=== PATIENT | male | born 1975 | race Caucasian/White ===

== ENCOUNTER → 2018-01-29 09:27 | Outpatient (CLI) | payer OTHER, SELFPAY ==
--- NOTE | 2018-01-29 09:30 | NM_ITS ---
CLINICAL: 42-year-old male with reported history of dyspepsia and nausea. RADIONUCLIDE HEPATOBILIARY SCINTIGRAPHY COMPARISON: Abdominal ultrasound report 09/19/2017 FINDINGS: Following the intravenous administration of 5.5 mCi of 99m Tc Mebrofenin, hepatobiliary images reveal: 1. Relatively prompt and homogeneous radiopharmaceutical concentration is noted by a normal sized liver. No parenchymal defects are identified. 2. Gallbladder activity is identified at 15 minutes post radiopharmaceutical administration. 3. Small intestinal tract is observed at 10 minutes following tracer injection. 4. Washout of the radiopharmaceutical by the hepatic parenchyma appears qualitatively normal. 5. There is scintigraphic evidence of pre-CCK duodenal gastric reflux. Cholecystokinin (0.02 ug/kg) was administered intravenously over a 30-minute period. The post CCK gallbladder ejection fraction calculated at 20 minutes following Cholecystokinin administration was noted to be 4.0 % (normal greater than 35%). There is scintigraphic evidence of continued post CCK duodenal gastric reflux. NM/Hepatobilliary Img w/Pharm Int IMPRESSION: 1. ABNORMAL 99m Tc Mebrofenin hepatobiliary imaging examination with Cholecystokinin. A. A gallbladder ejection fraction calculated to be less than 35% following the administration of Cholecystokinin is consistent with the presence of functional hepatobiliary disease (gallbladder and/or sphincter of Oddi dyskinesia) and/or organic hepatobiliary disease (chronic acalculous cholecystitis and/or cystic duct syndrome) in patients with intermediate to high pretest likelihoods of hepatobiliary illness. (Michelle Ahumada et al, Journal of Nuclear Medicine 32:1695, 1990). B. There is scintigraphic evidence of pre-post CCK duodenal-gastric reflux as described above. (Tomasz et al, Nucl Med Sheila Sveta Press pg. 35, 1980). Electronically Signed: Joe Tao DO at 22:06 EDT Tel , Service support ,
== END ==
PROVIDERS: Family Provider Family Medicine; PCP Family Medicine; Visit Provider Family Medicine
DX: K21.9 Gastro-esophageal reflux disease without esophagitis (principal)
CPT/HCPCS: 78226; 78227; A9537; J2805

== ENCOUNTER 2018-02-12 10:53 | Day surgery (SDC) | payer OTHER, SELFPAY ==
[2018-02-12 11:08] VITALS: BP 149/92; PULSE 82; RESP 16; TEMP 36.6; O2SAT 98
--- NOTE | 2018-02-12 11:12 | NURSING ---
LIDOCAINE JELLY APPLIED TO L. NARE X2. AFTER SEVERAL MINUTES, MANOMETRY PROBE INSERTED IN L. NARE TO DESIRED LOCATION. PROBE THEN TAPED TO NOSE WITH BLUE TAPE. PT. THEN RECLINED TO <30 DEGREES. AFTER SEVERAL MINUTES, TEST PERFORMED.
--- NOTE | 2018-02-12 11:47 | NURSING ---
TEST COMPLETE. MANOMETRY PROBE REMOVED FROM NARE. PT. TOLERATED PROCEDURE WELL. HE DENIES PAIN OR OTHER C/O. PT. AMBULATED OUT TO WAITING ROOM WITH RN & ESCORT.
== END 2018-02-12 11:52 | disposition home or self-care (01) ==
PROVIDERS: Family Provider Family Medicine; PCP Family Medicine; Visit Provider Surgery
PROC: F00ZJWZ Instrumental Swallowing and Oral Function Assessment using Swallowing Equipment (ICD-10-PCS; CPT 43235; principal; 2018-02-12 10:55)
DX: Z13.810 Encounter for screening for upper gastrointestinal disorder (principal)
CPT/HCPCS: 91010

== ENCOUNTER 2018-02-19 05:44 | Day surgery (SDC) | payer OTHER, SELFPAY ==
[2018-02-19] VITALS (7 sets, daily range): BP systolic 99–150; BP diastolic 58–96; PULSE 65–81; RESP 16; TEMP 36.3–36.6; O2SAT 93–96
--- NOTE | 2018-02-19 | IMM_PTH ---
PATIENT: ABBEY RODRÍGUEZ LOC: EN U#:[id number] AGE/SX: 42/M ROOM: RE02/19/[address]: Dr. Elder Sim MD : 1975 BED: DIS: 02/19/2018 SPEC #: [id number] RECD: 02/20/18 14:00 STATUS: JOSE LUIS SUELLEN #: [id number] LILLIANA: 02/19/18 00:[address]: Elder Sim DEPT: IMMUNOHISTOCHEMISTRY RECD BY: Crissy Haney ENTERED: 02/20/18 14:01 SP TYPE: IMMUNO OTHR DR: Dr. Aleksandra De La Cruz MD Tissues: B - Stomach, NOS Procedures: H Pylori (initial) PHYSICIAN & INSTITUTION [place] [id number] SPECIMEN INFORMATION: Tissue Source: B ? Antral biopsy Clinical Info: GERD Specimen Number: [id number] CPT code: 94081 METHODOLOGY: Deparaffinized sections of prefer/formalin-fixed tissue or PAP/DQ stained slides are incubated with monoclonal/polyclonal antibodies/oligonucleotide probes. Localization is made via biotin free immunoperoxidase method. Appropriate controls are performed and reacted as expected. Results on target cell population are indicated in the following table: RESULTS: ANTIBODY / CLONE RESULT Block B H Pylori (polyclonal) negative These tests were developed and their performance characteristics determined by [facility]. They may not have been cleared or approved by the U.S. Food and Drug Administration. The FDA has determined that such clearance or approval is not necessary. INTERPRETATION: B. Antral biopsy: Negative for Helicobacter pylori organisms. SJ:randy 02/21/18
--- NOTE | 2018-02-19 | EGD_PTH ---
PATIENT: ABBEY RODRÍGUEZ LOC: EN U#:[id number] AGE/SX: 42/M ROOM: RE02/19/[address]: Dr. Elder Sim MD : 1975 BED: DIS: 02/19/2018 SPEC #: [id number] RECD: 02/19/18 10:48 STATUS: JOSE LUIS SUELLEN #: [id number] LILLIANA: 02/19/18 00:[address]: Elder Sim DEPT: SURGICAL PATHOLOGY RECD BY: Joycelyn Marti ENTERED: 02/19/18 11:25 SP TYPE: EGD BIOPSY OT DR: Dr. Aleksandra De La Cruz MD Tissues: A - Duodenum, NOS B - Gastric mucous membrane C - Gastric mucous membrane D - Esophageal mucous membrane E - Esophageal mucous membrane F - Esophageal mucous membrane Procedures: Surgery Specimen Level IV HEADER OPERATION: EGD PRE-OP DIAGNOSIS: GERD TISSUE SUBMITTED: A - Duodenal biopsy, B - Antral biopsy, C - Gastric polyp biopsy, body of stomach, D - Distal esophageal biopsy, E - Mid esophageal biopsy, F - Proximal esophageal biopsy MICROSCOPIC DIAGNOSIS A. Duodenal biopsy: Fragments of small intestinal mucosa, no pathologic diagnosis. B. Antral biopsy: Mild gastritis. C. Gastric polyp, biopsy: Consistent with fundic gland polyp. D. Distal esophageal biopsy: Fragments of squamous epithelium with minimal chronic inflammation. E. Mid esophageal biopsy: Fragments of squamous epithelium, no pathologic diagnosis. F. Proximal esophageal biopsy: Fragments of squamous epithelium, no pathologic diagnosis. SJ:randy 02/20/18 COMMENT B. The results of immunohistochemistry for Helicobacter pylori will be reported separately ([id number]). MICROSCOPIC DESCRIPTION Slides are reviewed. B. The specimen shows fragments of gastric mucosa with chronic inflammatory cell infiltrates in the lamina propria consisting of lymphocytes and plasma cells, consistent with mild chronic gastritis. GROSS DESCRIPTION A - Received in fixative is one container labeled with the patient's name and designated duodenal biopsy. The specimen consists of two irregular fragments of light ojeda soft tissue that in aggregate measure 0.5 x 0.3 x 0.1 cm. The specimen is totally submitted in one cassette. B - Received in fixative is one container labeled with the patient's name and designated antral biopsy. The specimen consists of one irregular fragment of light ojeda soft tissue that measures 0.3 x 0.3 x 0.1 cm. The specimen is totally submitted in one cassette. C - Received in fixative is one container labeled with the patient's name and designated gastric polyp biopsy. The specimen consists of one irregular fragment of light ojeda soft tissue that measures 0.6 x 0.2 x 0.1 cm. The specimen is totally submitted in one cassette. D - Received in fixative is one container labeled with the patient's name and designated distal esophageal biopsy. The specimen consists of two irregular fragments of light ojeda soft tissue that in aggregate measure 0.5 x 0.3 x 0.1 cm. The specimen is totally submitted in one cassette. E - Received in fixative is one container labeled with the patient's name and designated mid esophageal biopsy. The specimen consists of multiple irregular fragments of light ojeda soft tissue that in aggregate measure 1.5 x 0.2 x 0.1 cm. The specimen is totally submitted in one cassette. F - Received in fixative is one container labeled with the patient's name and designated proximal esophageal biopsy. The specimen consists of two irregular fragments of light ojeda soft tissue that in aggregate measure 0.6 x 0.3 x 0.1 cm. The specimen is totally submitted in one cassette. / RY:rg 02/19/18 TC:5 CPT: 37074 x6
--- NOTE | 2018-02-19 06:47 | PCM.OPRPT ---
Problem List (1) Esophageal dysmotility Status: Acute Report of Operation Date of Procedure: 02/19/18 Pre-Operative Diagnosis: Esophageal dysmotility Post-Operative Diagnosis: Normal mucosa of the esophagus. Small hiatal hernia. Mild antral gastritis. Polyp of the body of the stomach. Normal-appearing duodenum Surgery/Procedure Performed:: Esophagogastroduodenoscopy with biopsies Description of Surgical Findings:: Timeout and informed consent was obtained. 42-year-old gent was taken to the endoscopy suite. His oropharynx was anesthetized with Topex. He was placed in a left lateral decubitus position. Throughout the procedure 100 mg Demerol and 4 mg of Versed were given as intravenous sedation. Videogastroscope was inserted into the esophageal inlet. Proximal mid distal esophagus did not appear to be grossly remarkable. The EG junction was at 45 cm. A small hiatal hernia noted. No gross findings to suggest reflux. The scope was advanced into the stomach were very mild erythema of the antrum was noted. Scope was advanced through the pylorus. The first and second portion the duodenum were inspected. The ampulla was noted. There were no gross abnormalities. Duodenal biopsies obtained to the second portion. The scope was withdrawn no additional abnormalities noted. Antral biopsy was then obtained. The greater and lesser curvatures were inspected. There is a polyp in the mid body of the stomach this was also cold forcep biopsied as were the rest of the biopsies. The scope was retroflexed the EG junction and cardia inspected. The cardia was not remarkable. The small hiatal hernia noted. The scope was placed back in antegrade viewing position. Greater and lesser curvatures were carefully inspected without additional abnormality. Excess fluid and air was aspirated free. The scope was withdrawn to the distal esophagus. Distal mid and proximal esophageal cold forcep biopsies were obtained. Hemostasis was intact. The procedure was completed with the patient tolerating it well. Impression Grossly normal-appearing duodenum and esophagus. Mild antral gastritis with erythema. Small hiatal hernia. The patient has an abnormal manometry exam suggesting significantly abnormal esophageal motility. Biopsies are pending. Previous barium swallow had been unremarkable. He also has an abnormal hepatobiliary scan with an markedly low ejection fraction of 4% and CCK stimulated right upper quadrant pain and postprocedural diarrhea. Tertiary consultation for swallowing disorder has been made. The patient will consider surgical treatment of his gallbladder. Cc: Dr Aleksandra Jolliff Medications were given at 0633. The procedure was initiated at 0635. The procedure was completed at 0643. Elder Sim M.D., F.A.C.S.
== END 2018-02-19 07:30 | disposition home or self-care (01) ==
LOC: EN 05:45 → AC 05:46
PROVIDERS: Family Provider Family Medicine; PCP Family Medicine; Visit Provider Surgery
PROC: (CPT 43239; principal; 2018-02-19 06:25)
DX: K29.70 Gastritis, unspecified, without bleeding (principal); K31.7 Polyp of stomach and duodenum; K20.9 Esophagitis, unspecified; K44.9 Diaphragmatic hernia without obstruction or gangrene; K22.4 Dyskinesia of esophagus; K21.9 Gastro-esophageal reflux disease without esophagitis; K82.9 Disease of gallbladder, unspecified; Z87.19 Personal history of other diseases of the digestive system; Z79.899 Other long term (current) drug therapy
CPT/HCPCS: 43239; 88305; 88342; 99152; 99153; J7120

== ENCOUNTER 2018-03-21 11:49 | Day surgery (SDC) | payer OTHER, SELFPAY ==
--- NOTE | 2018-03-19 13:45 | EKG12_ITS ---
Test Reason : PRE-OP Blood Pressure : / mmHG Vent. Rate : 080 BPM Atrial Rate : 080 BPM P-R Int : 182 ms QRS Dur : 096 ms QT Int : 362 ms P-R-T Axes : 023 -09 041 degrees QTc Int : 417 ms Normal sinus rhythm Normal ECG Confirmed by ROSY LOWRY ([id number]), dictionary editor GAYATHRI MARINO ([id number]) on 04/01/2018 4:58:21 PM Referred By: Elder Sim Confirmed By:ROSY LOWRY
[2018-03-19 14:57] LABS: Hematocrit 46.8 % (40-54); Hemoglobin 16.4 g/dl (13.0-16.5); Platelet Count 199 K/mm3 (150-450); RBC Distribution Width CV 13.3 % (11.6-14.6); RBC Distribution Width SD 38.6 fl (35.1-43.9); Red Blood Count 5.85 M/mm3 (4.6-6.2); White Blood Count 5.8 K/mm3 (4.4-11.0)
[2018-03-19 15:00] LABS: Scan Indicated on CBC? Y/N NO
[2018-03-19 15:29] LABS: Anion Gap 6 (5-15); BUN 13 mg/dL (7-18); BUN/Creat Ratio 15.3 RATIO (10-20); Calcium,Total 8.9 mg/dL (8.5-10.1); Chloride 104 mmol/L (98-107); Creatinine, Serum 0.85 mg/dL (0.70-1.30); EST Glomerular Filtration Rate 105 mL/min (>60); Est Glom Filt Rate - Afr Amer 126 mL/min (>60); Glucose 106 mg/dL (74-106); Potassium 3.6 mmol/L (3.5-5.1); Sodium Level 140 mmol/L (136-145)
[2018-03-21] VITALS (7 sets, daily range): BP systolic 111–133; BP diastolic 55–89; PULSE 56–76; RESP 14–18; TEMP 36.6–36.9; O2SAT 95–100; BMI 34.8
--- NOTE | 2018-03-21 13:35 | RAD_ITS ---
STUDY: INTRAOPERATIVE CHOLANGIOGRAM. REASON FOR EXAM: Male, 43 years old. Laparoscopic cholecystectomy. FLUOROSCOPY TIME (if supplied): (15.1 seconds) minutes/seconds TECHNIQUE: An intraoperative cholangiogram was performed by the surgeon. Imaging was submitted. COMPARISON: None. FINDINGS: The common bile duct is not dilated. No intraluminal filling defect is seen. There is free flow of contrast into the duodenum. RAD/Cholangiogram/ O R,Initial IMPRESSION: Unremarkable intraoperative cholangiogram. Electronically Signed: Elder Price MD at 15:27 EDT Tel [phone], Service support ,
--- NOTE | 2018-03-21 13:35 | GALL_PTH ---
PATIENT: ABBEY RODRÍGUEZ [place] [facility] [place][id number] AGE/SX: 43/M ROOM: RE03/21/[address]: Dr. Elder Sim MD : 1975 BED: DIS: 03/21/2018 SPEC #: [id number] RECD: 03/21/18 16:17 STATUS: JOSE LUIS BLISSAlly #: [id number] LILLIANA: 03/21/18 13:[address]: Elder Sim DEPT: SURGICAL PATHOLOGY RECD BY: Joe Joshi ENTERED: 03/22/18 14:00 SP TYPE: HILARY ALFARO DR: Dr. Aleksandra De La Cruz MD Tissues: Gallbladder, NOS Procedures: Surgery Specimen Level III HEADER OPERATION: Laparoscopic cholecystectomy PRE-OP DIAGNOSIS: Gallbladder problem TISSUE SUBMITTED: Gallbladder MICROSCOPIC DIAGNOSIS Gallbladder, cholecystectomy: Mild chronic cholecystitis. AM:randy 03/30/18 MICROSCOPIC DESCRIPTION Slides are reviewed. GROSS DESCRIPTION Received is one container labeled with the patient's name and designated gallbladder. The specimen consists of a gallbladder measuring 6 x 3.5 x 2 cm. The external surface is smooth and glistening. Focally, it is granular, hemorrhagic and contains cautery artifact. The lumen of the gallbladder contains mucoid bile and no calculi. The mucosa is bile-stained and without any mass lesions. The gallbladder wall averages 0.2 cm in thickness and is free of mass lesions. Bridge Ironworker sections of the gallbladder and the cystic duct are submitted in one cassette. / AM:randy 03/22/18 TC:3 CPT: 48478
--- NOTE | 2018-03-21 13:57 | PCM.DC.GS ---
Discharge Diet: Light diet - advance as tolerated - if you have questions about your diet instructions, please talk to you doctor. Discharge Activity: May Not Drive - for 1 week or while taking narcotic pain medicine. May shower in (days): 1 Lifting Restrictions: 10 pounds Call your doctor if your incision/area has: Continuous Slow Oozing, Sudden Increased Bleeding, Increased Pain/ Swelling, Increased Redness, Foul Smelling Discharge Call your doctor if you observe: Fever of 101 or Higher Suture Line Care: Avoid Pulling/Pushing, Avoid Pinching/Bending Additional Dressing/Incision Instructions:: Change or remove dressing in 4 days. Leave steri-strips in place for 1 week. Allergies/Adverse Reactions: Allergies No Known Allergies Allergy (Verified 03/21/18 11:21) Medications to take at Discharge ciprofloxacin 250 mg tablet 250 mg PO BID 02/05/18 dexlansoprazole 60 mg capsule,biphase delayed release 60 mg PO QDAY 02/05/18 dutasteride 0.5 mg capsule 0.5 mg PO QDAY 02/05/18 Primary Care Physician: Aleksandra De La Cruz MD [Primary Care Provider] - Please Follow Up With: Elder Sim MD - [phone] When: Call to make an appointment to be seen in about 10 days.
[2018-03-21] MEDS: Cefazolin 2 GM in 0.9% Normal Saline 100 ML IV (14:00)
[2018-03-21] MEDS: Bupivacaine Mpf 0.5% 30 ML VIAL (15:00)
--- NOTE | 2018-03-21 15:04 | PCM.OPRPT ---
Problem List (1) Biliary dyskinesia Status: Acute Report of Operation Date of Procedure: 03/21/18 Pre-Operative Diagnosis: Biliary dyskinesia Post-Operative Diagnosis: Same Surgery/Procedure Performed:: Laparoscopic cholecystectomy with cholangiograms Description of Surgical Findings:: Timeout and informed consent was obtained. 43-year-old gent was taken out from placement table underwent general endotracheal intubation anesthesia. The abdomen was sterilely prepped and draped. Ancef 2 g are given intravenously preoperatively. 0.5% Marcaine was used as a local anesthetic. Throughout the procedure total 30 cc was used. Skin sites were pre-anesthetized. A vertical infraumbilical incision was created sharp dissection carried down through subcu tissue direct access was gained through the peritoneum under direct visitation a 12 mm trocar was inserted. The abdomen was insufflated with CO2 to pressure of 10 mm micro pressure. 10 mm laparoscope was inserted no evidence any trocar injuries under direct visualization 5 mm ports were placed in the epigastric mid abdomen right upper quadrant. The abdomen was rapidly superficially inspected no gross superficial abnormalities. The gallbladder was distracted with a few adhesions of omentum to the gallbladder but nothing acute. The infundibular the gallbladder was completely dissected free. The hepatocystic angle was nicely achieved. The cystic duct and cystic artery cleanly identified. The cystic artery was clipped proximally distally prior to transecting it. A Hem-o-lola clip was placed on the cystic duct incision in the cystic duct and through a 14-gauge Angiocath cholangiocatheter was inserted. Fluoroscopically controlled claims grams were obtained demonstrating normal ductal anatomy and free flow into the small bowel. The cholangiogram catheter was removed and 2 Hem-o-lola clips were placed on the cystic duct stump prior to transecting it. The gallbladder was dissected free from the liver bed using electrocautery. Complete hemostasis was intact. The gallbladder was placed in retrieval bag. The right upper quadrant was irrigated and aspirated free of excess fluid. The gallbladder was exited the umbilicus. The remaining trochars removed under visualization. The abdomen was allowed to deflate of the CO2. The fascia at the umbilicus was approximated with 2 [id number] sutures of 0 Vicryl. Skin edges proximate interrupted 4 Monocryl subdermal stitches. Steri-Strips and Telfa and OpSite dressings were applied. Sponge instrument and needle counts were reported to the surgeon for correct. Blood loss was minimal. Specimens gallbladder. Drains none. Blood loss minimal. Elder Sim M.D., F.A.C.S. Type of Anesthesia:: General Anesthesiologist: Juan David Carbajal
[2018-03-21] MEDS: Ketorolac 30 MG/ML Syringe IV (15:25)
[2018-03-21] MEDS: Acetaminophen 325 MG Tablet 650 MG PO (16:15)
== END 2018-03-21 17:50 | disposition home or self-care (01) ==
LOC: SDC 11:49 → AC 11:50
PROVIDERS: Family Provider Family Medicine; PCP Family Medicine; Visit Provider Surgery
PROC: (CPT 47610; principal; 2018-03-21 13:15)
DX: K82.8 Other specified diseases of gallbladder (principal); K21.9 Gastro-esophageal reflux disease without esophagitis; Z87.891 Personal history of nicotine dependence
CPT/HCPCS: 00790; 47563; 36415; 74300; 76000; 80048; 85027; 88304; 93005; J7120; J2405

== ENCOUNTER → 2018-06-27 10:51 | Outpatient (CLI) | payer OTHER, SELFPAY ==
[2018-06-27 12:13] LABS: PSA,Total - Annual Screen 0.28 ng/mL (0.00-4.00)
== END ==
PROVIDERS: Family Provider Family Medicine; PCP Family Medicine; Visit Provider Nurse Practitioner Adult Health
DX: Z12.5 Encounter for screening for malignant neoplasm of prostate (principal)
CPT/HCPCS: 36415; 84153; G0103

== ENCOUNTER → 2018-07-03 15:02 | Outpatient (CLI) | payer OTHER, SELFPAY ==
--- NOTE | 2018-07-03 15:05 | RAD_ITS ---
STUDY: X-RAY CHEST REASON FOR EXAM: Male, 43 years old. Left lower chest pain onset today. TECHNIQUE: PA and lateral chest COMPARISON: None. FINDINGS: The lungs are clear and expanded. Normal cardiomediastinal silhouette, jordin and pleural margins. No acute osseous or upper abdominal process. RAD/Chest PA and Lateral IMPRESSION: No acute cardiopulmonary process. Electronically Signed: Joe Rogers, at 16:35 EDT Tel , Service support ,
== END ==
PROVIDERS: Family Provider Family Medicine; PCP Family Medicine; Visit Provider Family Medicine
DX: R07.81 Pleurodynia (principal)
CPT/HCPCS: 71046

== ENCOUNTER → 2019-07-21 09:57 | Outpatient (CLI) | payer OTHER, SELFPAY ==
[2018-03-21 12:29] VITALS: BMI 34.8
[2019-07-21 11:33] LABS: PSA,Total - Annual Screen 0.15 ng/mL (0.00-4.00)
== END ==
PROVIDERS: Family Provider Family Medicine; PCP Family Medicine; Referring Provider Nurse Practitioner Adult Health; Visit Provider Nurse Practitioner Adult Health
DX: Z12.5 Encounter for screening for malignant neoplasm of prostate (principal)
CPT/HCPCS: 36415; 84153; G0103

== ENCOUNTER 2020-10-19 13:00 | Outpatient (RCR) | payer OTHER, SELFPAY ==
--- NOTE | 2020-09-22 13:30 | HP.PTEVAL_ITS ---
Patient's Visit Information ABBEY RODRÍGUEZ is a 45 year old M referred to Physical Therapy by Dr. Nathaniel Thompson DPM with a diagnosis of L achilles tendonosis, Haglunds deformity. Date of Evaluation: 09/20/20 Physical Therapist: Richard Barnes DPT - Visit Plan Frequency: 1-2x /Week Duration: 4-6 Weeks Plan: Start with DN, stretching of G/S complex and progression of eccentric strengthening. I would like to rduce symptoms to increase tolerance to running, then to increase his tensial strength fo his achilles to reduce pain during straining movements. - Subjective Pt. is here today for his initial evaluation with diagnosis of L achilles tendonosis with hagluns deformity. Pt. has been running for some time, started higher volume a few years ago when training for a 1/2 marathons and 5ks. Pt. had stopped some of his high volume running and cross training due to COVID, but is back to running higher volumes again. Pt. did have a surgical removal of a Hagluns deformity on his R heel a few years ago with good success. Pt. reports h e has been having symptoms for several months now. Pt. reports most of his pain is located near his Haglunds deformity and in at distal achilles tendon. Pt. is wearing a resting splint during the day as he sits at his desk for work. Pt. denies N/T. His pain is worse upon standing after prolonged sitting and in the AMs when he wakes up. Pt. is sometimes able to run and the pain reduces, but comes back when he is done. Pt. is hopeful to decrease his symptoms in order to keep running without limitations. - Pain L achilles tendon Pain Intensity (Out of 10): 3 Pain Intensity Range: 1, 6 - Objective POSTURE: Pt. high arches bilaterally, resulting with increased supinated positioning in stance with rocking into pronation during mid stance phase. PALPATION: Pt. has a marked Haglunds deformity with increased tenderness at this deformity and along achilles insertion. Pt. did not have much pain along medial or lateral plantar fascia this date. NEURO: normal throughout, normal DTR, normal sensation. ROM: Pt. has decent ROM of his L ankle, DF 13deg, PG 51deg, INV/EVR 20deg./ea. MMT: pt. has 5/5 strength throughout ankle, 4/5 foot intrinsics Pt. does have increased pain with eccentric heel raises, especially with Single leg on his Left. GAIT: Pt. has fairly normal gait pattern, but does have increased lateral heel strike with initial contact and incrased supinated postion during this phase. Pt. tends to have increased pronation during stance phase. STAIRS: early heel off with descending on LLE, rest of the movement is normal. - Goals Goal 1:: LTG: Pt. to be I with HEP. Goal Time Frame: 4-6 Weeks Goal 2:: STG: Pt. to walk without increase in symptoms. Goal Time Frame: 2-4 Weeks Goal 3:: LTG: Pt. to run upto 5 miles without increase in symptoms. Goal Time Frame: 4-6 Weeks Goal 4:: STG: Pt. to have no pain at rest. Goal Time Frame: 2-4 Weeks Goal 5:: LTG: Pt. to complete all work related activites without increase in symptoms. Goal Time Frame: 4-6 Weeks - Rehabilitation Potential Physical Therapy Diagnosis: Pt. has signs and symptoms consistent with with L achilles tendonosis with Haglunds deformity. Pt. presents with increased pain at his achilles insertion greatest with attempting to run and more physical activities after prolonged sitting. He would benefit from PT to work on increased stretching, eccentric strengthening and use of modalities including dry needling to reduce symptoms. Rehabilitation Potential: Good - Anticipated Interventions Patient/Client Instruction: Educate patient on: Condition, Plan of Care, Risk Factors, Benefits of Fitness Program For the Purpose of:: To facilitate caregiver knowledge, To improve self management, To prevent re-injury, To improve ability to perform tasks related to life management, To improve tolerance to ADL's Therapeutic Exercise to Include: Strength training, Power training, Balance training, Postural training, Flexibilty training, Gait and locomotor training, Passive ROM, Active ROM For the Purpose of:: To decrease pain, To decrease swelling/inflammation, To increase ROM, To improve nutrient delivery to tissue, To increase oxygenation perfusion, To improve muscle performance and motor function, To improve ability to perform ADL's, To improve health of tissue, To decrease soft tissue restriction, To increase flexibility/ROM Manual Therapy Techniques to Include: Mobilization, Passive ROM, Functional dry needling, Soft tissue mobilization For the Purpose of:: To decrease pain, To decrease swelling/inflammation Ultrasound (thermal/non thermal): Yes For the Purpose of:: To decrease pain, To decrease swelling/inflammation, To increase ROM, To improve nutrient delivery to tissue, To increase oxygenation perfusion Thank you for the opportunity to evaluate your patient. For Medicare and Medicare HMO plans, please review the plan of care and approve it. It will need to be FAXED BACK to us at [phone] for Medicare purposes. For Medicare only, by signing this I certify the plan of care. Please let me know if there are questions or concerns regarding this plan of care. Physician Signature: Date:
--- NOTE | 2020-10-19 15:33 | HP.PTDCSUM ---
It has been my pleasure to treat ABBEY RODRÍGUEZ referred by Dr. Nathaniel Thompson, LIAN, with the diagnosis of L achilles tendonosis, Haglunds deformity for a total of 5 visit(s). Discharge Date: 10/19/20 Please see the following information for a summary of their discharge status. Subjective: Pt. reports I feel like I have regressed a bit.' He reports having continued stiffness/pain in AMs with initial steps. this does improve with stretching and mobility. Pt. is having increased issues with running as well, where reports being discouraged. Pt. is having most of his pain at his lateral calcaneus, burning sensation when he is running. L achilles tendon Pain Intensity (Out of 10): 1 % Improvement: 15 Objective/Function: Pt. has good strength, except he does have increased pain with L single leg heel raises. Pain at lateral calcaneus. He still has increased arch height and has increased rearfoot varus positioning derrick incraesed stress to lateral aspect of his calcaneus. Pt. did have some relief initially, but has started to regress no that he is running again. Goal 1:: LTG: Pt. to be I with HEP. Goal Progress: Goal Met Goal 2:: STG: Pt. to walk without increase in symptoms. Goal Progress: Progressing Goal 3:: LTG: Pt. to run upto 5 miles without increase in symptoms. Goal Progress: Not Progressing Goal 4:: STG: Pt. to have no pain at rest. Goal Progress: Progressing Goal 5:: LTG: Pt. to complete all work related activites without increase in symptoms. Goal Progress: Not Progressing Plan: DC back to physician due to lack of progression of symptoms. Discharge Comments: Pt. was treated for his achilles tendonitis with MARTIN valencia US, stretching and eccentric strengthening. He reported increased symptoms with the few trials of DN therefor held. He was progressing with stretching and strengthening, but now that he is back to running, he is still noticing increased symptoms throughout running. He is to continue with stretching at home as this gives some releief as well as using his resting splints. He will follow up with physician to determine best course of action. If there are questions or concerns regarding this patient's physical therapy, please feel free to call me at [phone]. Thank you for the referral of this patient. Sincerely, Richard Barnes DPT
== END 2020-10-19 19:00 | disposition home or self-care (01) ==
LOC: PT 13:00
PROVIDERS: PCP Family Medicine; Referring Provider Podiatrist; Visit Provider Podiatrist
DX: M72.2 Plantar fascial fibromatosis (principal); M76.62 Achilles tendinitis, left leg
CPT/HCPCS: 97035; 97140; 97161; 97164

== ENCOUNTER → 2020-11-08 07:12 | Outpatient (CLI) | payer OTHER, SELFPAY ==
--- NOTE | 2020-11-08 07:29 | MRI_ITS ---
STUDY: MRI LEFT ANKLE WITHOUT CONTRAST REASON FOR EXAM: Male, 45 years old. left achilles tendinits, heel spur TECHNIQUE: Standardized fat and water weighted pulse sequences were obtained in all 3 orthogonal planes. COMPARISON: None. FINDINGS: Mild/moderate Achilles tendinosis with small Achilles enthesophyte. Plantar spur. Acute on chronic plantar fasciitis with calcaneal bone marrow edema. Normal muscles of the midfoot/hindfoot. Mild soft tissue swelling. Small tibiotalar/subtalar joint effusion. Normal posterior tibialis tendon. Normal flexor digitorum longus tendon. Normal flexor hallucis longus tendon. Mild peroneus longus tenosynovitis. Normal peroneus brevis tendon. Normal tibialis anterior tendon. Normal extensor hallucis longus tendon. Normal extensor digitorum longus tendons. Normal distal tibiofibular syndesmotic ligamentous complex. Normal lateral ligamentous complex. Normal subtalar ligaments and sinus tarsi. Normal deltoid ligamentous complexes. Normal plantar calcaneonavicular (spring) ligament. Normal Lisfranc ligament. Normal tibiotalar articulation. Normal talar dome. Mild posterior subtalar joint arthrosis. Normal talonavicular articulation. Normal calcaneocuboid articulation. Normal navicular-cuneiform articulations. MRI/Lower Ext Joint Only (Routine) IMPRESSION: Acute on chronic plantar fasciitis with plantar spur and calcaneal bone marrow edema Mild/moderate Achilles tendinosis with small enthesophyte Mild peroneus longus tenosynovitis Mild soft tissue swelling with small joint effusion Electronically Signed: Matt Hou DO at 9:20 EST Tel , Service support ,
== END ==
PROVIDERS: PCP Family Medicine; Referring Provider Podiatrist; Visit Provider Podiatrist
DX: M76.62 Achilles tendinitis, left leg (principal); M77.32 Calcaneal spur, left foot
CPT/HCPCS: 73721

== ENCOUNTER 2022-01-16 11:30 | Outpatient (CLI) | payer OTHER, SELFPAY | END 2022-01-16 23:59 | disposition home or self-care (01) | LOC: LAB 11:32 | PROVIDERS: PCP Family Medicine; Referring Provider Registered Nurse; Visit Provider Registered Nurse | DX: Z12.5 Encounter for screening for malignant neoplasm of prostate (principal) | CPT/HCPCS: 36415; 84153; G0103 ==

== ENCOUNTER → 2022-09-13 | Outpatient (CLI) | payer OTHER, SELFPAY ==
[2022-09-13 10:46] LABS: ALB/GLOB Ratio 1.3 RATIO (0.9-2.4); AST(SGOT) 27 U/L (15-37); Alanine Aminotransfer ALT/SGPT 49 U/L (16-61); Albumin, Serum 3.9 g/dL (3.2-5.0); Alkaline Phosphatase 74 U/L (45-117); Anion Gap 8 (5-15); BUN 14 mg/dL (7-18); BUN/Creat Ratio 17.3 RATIO (10-20); Calcium,Total 8.8 mg/dL (8.5-10.1); Chloride 106 mmol/L (98-107); Cholesterol 211 mg/dL (200); Creatinine, Serum 0.81 mg/dL (0.70-1.30); EST Glomerular Filtration Rate 108 mL/min (>60); Est Glom Filt Rate - Afr Amer 130 mL/min (>60); Glucose 104 mg/dL (74-106); High Density Lipoprotein 31 mg/dL; Potassium 3.8 mmol/L (3.5-5.1); Protein, Total 6.9 g/dL (6.4-8.2); Sodium Level 140 mmol/L (136-145); Triglycerides 238 mg/dL; Very Low Density Lipoprotein 48 mg/dL (5-40)
== END | disposition home or self-care (01) ==
LOC: MFPLAB 09:08
PROVIDERS: PCP Family Medicine; Visit Provider Nurse Practitioner Family
DX: E78.5 Hyperlipidemia, unspecified (principal); Z13.1 Encounter for screening for diabetes mellitus
CPT/HCPCS: 36415; 80053; 80061

== ENCOUNTER → 2023-01-18 | Outpatient (CLI) | payer OTHER, SELFPAY ==
[2023-01-18 11:15] LABS: PSA,Total - Annual Screen 0.19 ng/mL (0.00-4.00)
== END | disposition home or self-care (01) ==
LOC: LAB 09:54
PROVIDERS: PCP Family Medicine; Referring Provider Registered Nurse; Visit Provider Registered Nurse
DX: Z12.5 Encounter for screening for malignant neoplasm of prostate (principal)
CPT/HCPCS: 36415; 84153; G0103

== ENCOUNTER → 2023-07-25 | Outpatient (CLI) | payer OTHER, SELFPAY ==
--- NOTE | 2023-07-25 14:31 | NEURO ---
NCS and/or EMG Patient Report Ordering Doctor: Aleksandra De La Cruz DATE OF SERVICE: 07/25/23 Cayetano presents for electrodiagnostic testing of the left upper limb. He reports numbness and tingling in the left hand. Electrodiagnostic findings: Left median motor nerve demonstrates normal distal latency, amplitude and conduction velocity. Left ulnar motor response is within normal limits, including conduction across the elbow. Normal median and ulnar F-waves on the left side. There is a prolonged left median sensory latency at the wrist. Normal left median palmar response. Normal ulnar and radial sensory responses. Needle EMG testing was performed in the left upper limb. All muscles tested showed no evidence of denervation with normal motor unit action potentials. Electrodiagnostic impression: This is an abnormal study in the left upper limb. 1. Electrodiagnostic findings suggestive of left-sided median mononeuropathy. This is consistent with a mild left carpal tunnel syndrome. Multi Select Codes Neurology Neurology Interp Codes: 42130-16 Musc test done w/n test comp (interp) and 86968-08 Nrv cndj test 7-8 studies (interp)
== END | disposition home or self-care (01) ==
LOC: PSN 12:56
PROVIDERS: PCP Family Medicine; Referring Provider Family Medicine; Visit Provider Family Medicine
DX: G56.02 Carpal tunnel syndrome, left upper limb (principal)
CPT/HCPCS: 95886; 95910

== ENCOUNTER 2023-11-13 09:48 | Day surgery (SDC) | payer OTHER, SELFPAY ==
[2023-11-13] MEDS: Lactated Ringers 1,000 ML 15 ML IV (10:11)
[2023-11-13 10:15] VITALS: BP 152/96; PULSE 91; RESP 17; TEMP 36.4; O2SAT 98; BMI 39.1
--- NOTE | 2023-11-13 11:02 | HP.PCM_ITS ---
History and Physical [facility] [address] [place] [address] [address] [place] [address] OFFICE VISIT Date of Service: 08/13/23 MR#: [id number] Acct: [id number] Name: ABBEY RODRÍGUEZ Rep #: [id number] : 1975 Provider: Dr. Carmelo Garsia DO Age/Sex: 48/M Location: [facility] [place] Status: Signed Intake Vital Signs 08/13/2308:27 Height 5 ft 11 in Weight: 200 lb BMI 27.8 Intake Visit Reasons: LEFT HAND Chief Complaint: left hand Accompanied by: Self Is patient in pain?: No Allergies No Known Allergies Allergy (Verified 04/04/18 08:59) Medications ciprofloxacin HCl 250 mg tablet (Cipro) 250 mg PO BID 02/05/18 [History Confirmed 08/13/23] dexlansoprazole 60 mg capsule,biphase delayed release (Dexilant) 60 mg PO QDAY 02/05/18 [History Confirmed 08/13/23] dutasteride 0.5 mg capsule (Avodart) 0.5 mg PO QDAY 02/05/18 [History Confirmed 08/13/23] alfuzosin 10 mg tablet,extended release 24 hr (Uroxatral) 10 mg PO QDAY 04/04/18 [History Confirmed 08/13/23] celecoxib 100 mg capsule (Celebrex) 100 mg PO BID #60 caps 08/13/23 [Rx Confirmed 08/13/23] multivitamin 1 tab PO DAILY 08/13/23 [History Confirmed 08/13/23] PFSH Medical History (Updated 08/13/23 @ 09:[address] Carmelo Garsia DO) Abdominal pain Acid reflux Diarrhea Gallbladder problem Surgical History Hx of hernia repair S/P Achilles tendon repair S/P carpal tunnel release Family History Father Hypertension High cholesterol Cancer Skin cancerMother Cancer Skin cancer Social History Smoking Status: Former smoker second hand exposure: No alcohol intake: current alcohol intake frequency: holidays/special occasions only substance use type: does not use caffeine: No what type of physical activity do you participate in: walking frequency: 1-2 times per week seatbelt use: always HPI LEFT HAND Details: Parts of this documentation were recorded by a scribe, this documentation accurately reflects the service provided and the decisions made by me, Dr. Carmelo Garsia, DO 08/13/23 [id number]. ABBEY RODRÍGUEZ is a 48 year old M NEW patient here today for left hand numbness that he has had for a number of years but has became worse over the last 2 years. He states that he has numbness into all of his fingers and states that he occasionally has numbness that radiates to the elbow. He states that during the day when he is doing anything with his hands he has numbness of all the fingers and then at night he will have numbness from the elbow into the hand and all his fingers. He states that with driving and riding a bicycle he has worsening symptoms/numbness. He has tried night bracing for about 2 weeks which wasn't helpful. He did have a new EMG on 07/25/23 at [facility]. Denies any hx of trama to the left arm. Denies any hx of past surgery or injections of the left hand. He has occasionally tried Advil/Tylenol but not consistently. Denies any neck pain. Of note patient states he had the exact same symptoms in his right hand that were relieved with a carpal tunnel release. Ortho Exam General General: Yes no acute distress Neurologic: Yes alert and Yes oriented x3 Psychologic: Yes reasonable and appropriate Right Wrist/Hand Skin/Wound: No Swelling and No Ecchymosis Left Wrist/Hand Skin/Wound: No Swelling, No Ecchymosis, Yes nail intact and Yes capillary refill normal Left Wrist: Yes Durken's Test and Yes Phalen's; No Tinel's, No Thenar Atrophy and No Hypothenar Atrophy WRIST: phalens and durkens into ulnar 2 digits and some into the index and middle intact sensation to light touch. Head: Normocephalic Atraumatic Chest: symmetrical rise, non-labored breathing, no audible wheeze Abdomen: no guarding, non-rigid Supplemental Info 07/25/2023 EMG left upper extremity: Mild left carpal tunnel syndrome Coding Level of Care Code Off vis,new,level 3 Diagnoses Left carpal tunnel syndrome G56.02 Assessment and Plan Assessment and Plan (1) Left carpal tunnel syndrome: Status: Acute Medications: New celecoxib (Celebrex) 100 mg PO BID 60 caps 1RF Plan Patient educated that he does have mild left carpal tunnel syndrome. He doesn't have typical positive exam findings therefore it is hard to tell if he will get relief from a carpal tunnel release. Would recommend night bracing and NSAIDs for about 6 week or left carpal tunnel injection for diagnostic purposes. He states that the left hand feels exactly the same as the right hand prior to surgery. Alternatively he could have a left CTR. Reviewed the pre-operative plans with the patient. Risks and benefits of the procedure were fully explained, including but not limited to infection, neurovascular injury, continued pain, arthritis, stiffness, need for further surgery, re-injury, DVT, PE, general risks of anesthesia, and loss of limb or life. He would like to wait until the end of the year or beginning of next year to have left CTR. In the meantime he should continue with night bracing for 6 weeks and a prescription strength NSAID as he has chronic GERD. Will prescribe Celebrex for the patient. Provided patient with left wrist brace today. Follow up when wishes to proceed with surgery or sooner if pain, swelling, numbness or associated symptoms, or concerns develop. All questions answered. Patient in agreement of plan. 08/13/23 0931 <Electronically signed by Carmelo Garsia DO> Date Carmelo Garsia DO Cosigner Signature: Date (if applicable) CC: ~ I have examined the patient and the H&P has been reviewed. There are no clinical changes since date of exam.
[2023-11-13] MEDS: Lidocaine 1% /Epi 1:100 (20ml) 20 ML Vial (11:14)
[2023-11-13] MEDS: Cefazolin 2 GM in 0.9% Normal Saline (100mL Bag) 100 ML IV (11:14)
--- NOTE | 2023-11-13 11:42 | DCINST_ITS ---
Discharge Instructions Diet Discharge Diet: No restrictions Activity Additional Activity Instructions:: Ice and elevate operative extremity next 72 hours. Keep dressing on clean and dry for 48 hours then may remove and allow warm soapy water to rinse over incision but do not submerge until sutures are out. Then apply bandaid over incision and change daily. encourage finger range of motion. Not lift more than 1/2 pound. Minimize narcotic use only as needed and directed, may use OTC NSAID and Tylenol to supplement/substitute for pain control. Dressing / Incision Call your doctor if you observe: Shortness of breath and Chest pain Additional Dressing/Incision Instructions:: Ice and elevate operative extremity next 72 hours. Keep dressing on clean and dry for 48 hours then may remove and allow warm soapy water to rinse over incision but do not submerge until sutures are out. Then apply bandaid over incision and change daily. encourage finger range of motion. Not lift more than 1/2 pound. Minimize narcotic use only as needed and directed, may use OTC NSAID and Tylenol to supplement/substitute for pain control. Follow Up Care Please Follow Up With: Carmelo Garsia DO When: 2 weeks Test Results: Test results from this visit will be discussed in further detail at your follow- up appointment, if applicable. Discharge Plan Admission Primary Reason for Your Visit: Left carpal tunnel release Attending Provider: Carmelo Garsia Primary Care Provider: Aleksandra De La Cruz Discharge Orders/Prescriptions Prescriptions: New oxycodone 5 mg tablet 5 - 10 mg PO Q4H PRN (Reason: pain) 3 Days Qty: 12 0RF Continued ciprofloxacin HCl [Cipro] 250 mg tablet 250 mg PO BID dutasteride [Avodart] 0.5 mg capsule 0.5 mg PO QDAY alfuzosin [Uroxatral] 10 mg tablet extended release 24 hr 10 mg PO QDAY multivitamin Tablet 1 tab PO DAILY esomeprazole magnesium [Nexium] 40 mg capsule,delayed release(DR/EC) 40 mg PO BID amitriptyline 10 mg tablet 30 mg PO QHS Patient Comments: take 3 tablets by mouth at bedtime saw palmetto 450 mg capsule 450 mg PO DAILY Rx Instructions: give with food (meal/snack) Referrals / Follow Up: Aleksandra De La Cruz MD [Primary Care Provider] - Disposition Disposition (needs filled in before D/C Order can be placed): Home, Self Care
--- NOTE | 2023-11-13 11:42 | PCM.OP.BLANK ---
Operative Report Date of Procedure: 11/13/23 Preoperative diagnosis; left carpal tunnel syndrome Postoperative diagnosis; same Procedure: Left open carpal tunnel release Anesthesia: Local with MAC Tourniquet time; 12 minutes 250 mm Hg Complications: None Indication for procedure; This is a 48-year-old male with long-standing symptoms consistent with carpal tunnel syndrome the patient did have electrodiagnostic evidence of this and has failed conservative treatment. Risks benefits and alternatives were reviewed including risks of bleeding infection nerve artery tissue damage need for further surgery and continued pain and symptoms, hypersensitivity to scar and Pillar pain. Procedure; The patient was met in the preoperative holding area the operative extremity was identified by both patient and physician and was marked the patient was met by anesthesia and brought back to the operating room and transferred to the operating table in the supine position. Anesthesia was started. A well-padded tourniquet was placed on the operative upper extremity. The patient was prepped and draped in the usual sterile fashion. A timeout was called to ensure the proper patient procedure and extremity were being contemplated. 0.5 percent lidocaine with epinephrine was injected into the incisional area. An Esmarch was used to exsanguinate the extremity. The tourniquet was inflated to 250 mmHg. A midline incision was made with a 15 blade scalpel between the thenar and hypothenar eminence. This was carried down through the skin and subcutaneous tissue. Bibiana retractors were then used, a deep blade scalpel was used to make a deep incision in the palmar aponeurosis. The bibiana retractors were then placed deep to this and the transverse carpal ligament was identified a perforation was made with a scalpel and a Littler scissors were used to complete the release of the transverse carpal ligament distally under direct visualization with the tips facing ulnarly until the perivascular fat was reached. Then turning our attention proximally using a tension slide technique the proximal extent of the transverse carpal ligament was released . There was noted to be hypertrophy of the transverse carpal ligament. The wound was thoroughly irrigated and was closed with 4-0 nylon vertical mattress stitches. Dressing was applied in the form of xeroform 4 x 4, web roll and an kee wrap. Tourniquet was let down there is no intraoperative complications patient tolerated the procedure well and was transferred to the PACU. All counts were correct.
[2023-11-13 11:48] VITALS: BP 131/62; BP 152/96; PULSE 105; RESP 16; TEMP 36.2; O2SAT 92
[2023-11-13 11:50] VITALS: BP 121/74; BP 152/96; PULSE 108; RESP 16; O2SAT 92
[2023-11-13 11:55] VITALS: BP 129/80; BP 152/96; PULSE 103; RESP 16; O2SAT 93
[2023-11-13 12:02] VITALS: BP 128/80; BP 152/96; PULSE 94; RESP 16; TEMP 36.4; O2SAT 93
[2023-11-13 12:25] VITALS: BP 152/96
== END 2023-11-13 12:37 | disposition home or self-care (01) ==
LOC: SDC 09:49 → AC 09:50
PROVIDERS: PCP Family Medicine; Referring Provider Orthopaedic Surgery; Visit Provider Orthopaedic Surgery
PROC: (CPT 64721; principal; 2023-11-13 11:15)
DX: G56.02 Carpal tunnel syndrome, left upper limb (principal); K21.9 Gastro-esophageal reflux disease without esophagitis; Z87.891 Personal history of nicotine dependence; Z79.899 Other long term (current) drug therapy
CPT/HCPCS: 64721; 01810; J7120; J2405

== ENCOUNTER → 2024-05-06 | Outpatient (CLI) | payer OTHER, SELFPAY ==
[2024-05-06 13:27] LABS: PSA,Total - Annual Screen 0.18 ng/mL (0.00-4.00)
== END | disposition home or self-care (01) ==
LOC: LAB 11:14
PROVIDERS: PCP Family Medicine; Referring Provider Nurse Practitioner; Visit Provider Nurse Practitioner
DX: Z12.5 Encounter for screening for malignant neoplasm of prostate (principal)
CPT/HCPCS: 36415; 84153; G0103

== ENCOUNTER 2024-09-30 05:51 | Day surgery (SDC) | payer OTHER, SELFPAY ==
[2024-09-30] VITALS (7 sets, daily range): BP systolic 120–139; BP diastolic 85–96; PULSE 101–113; RESP 16–18; TEMP 36.9–37.4; O2SAT 95–99; BMI 38.1
--- NOTE | 2024-09-30 06:40 | PRE.ANES_ITS ---
ASA Classification* ASA Classification ASA Classification: 3 Assessment & Plan Anesthesia* Anesthesia Assessment Anesthesia Assessment: Discussed sedation and/or anesthesia options, risks, benefits, and alternatives with patient/parents/legal guardian/POA. Questions invited. The patient/parents/legal guardian/POA seems to understand and agrees to proceed with anesthesia plan. Reviewed the physical assessment, medical history, allergy history and patient home medications list prior to surgery/procedure/anesthetic and documented any changes. Performed airway and anesthesia risk assessments. Anesthesia Type Anesthesia Type: MAC Anesthesia Focused Assessment* Temperature: 98.9 F Pulse Rate: 113 Blood Pressure: 136/85 Respiratory Rate: 18 Pulse Ox: 99 Airway Assessment Mouth opens: >3 cm Mallampati Score: II Focused Labs Anesthesia Preop lab: CBC WBC 5.8 K/mm3 (4.4-11.0) 03/19/18 13:38 RBC 5.85 M/mm3 (4.6-6.2) 03/19/18 13:38 Hgb 16.4 g/dl (13.0-16.5) 03/19/18 13:38 Hct 46.8 % (40-54) 03/19/18 13:38 Plt Count 199 K/mm3 (150-450) 03/19/18 13:38 CHEMISTRY Potassium 3.8 mmol/L (3.5-5.1) 09/13/22 09:08 Sodium 140 mmol/L (136-145) 09/13/22 09:08 BUN 14 mg/dL (7-18) 09/13/22 09:08 Creatinine 0.81 mg/dL (0.70-1.30) 09/13/22 09:08 Glucose 104 mg/dL (74-106) 09/13/22 09:08 TSH 1.21 uIU/mL (0.358-3.74) 04/12/15 08:37 COAG Pre-Assessment Diagnosis/Proposed Procedure Planned Operative Procedure(s): CSCOPE OA Anesthesia History Anesthesia History - company manager: Anesthesia History - company manager Hx Hospitalization No 09/25/24 09:12 Any Problems With Anesthesia Yes: N&V/HAD SCOPE PATCH AND 09/25/24 09:12 WORKED WELL Cholinesterase deficiency No 09/25/24 09:12 You/Your Family Experience No 09/25/24 09:12 fever (hyperthermia) with Relationship Recent Exposure to Contagious No 09/30/24 06:13 Disease Does patient have nerve No 09/25/24 09:12 stimulator Patient instructed to have device shut off --Does patient have Pacemaker No 09/30/24 06:14 or ICD? When Was Last Pacemaker Check QUESTION #4 FULL TEXT: You/Your Family Experience fever (hyperthermia) with Anesthesia Last Oral Intake Last Oral intake: Last Oral Intake NPO since 03:30 09/30/24 06:14 Meds taken in AM with sips of Yes 09/30/24 06:14 water? Meds patient instructed to take am of surgery PONV PONV - company manager: PONV - company manager Female No 09/25/24 09:12 HX of Motion Sickness Yes 09/25/24 09:12 HX of N/V After Surgery Yes 09/25/24 09:12 Non-Smoker Yes 09/25/24 09:12 Duration of Surgery greater No 09/25/24 09:12 than 60 minutes Number of Risk Factors 3 09/25/24 09:12 PONV Score Moderate Risk 09/25/24 09:12 Height & Weight Height & Weight: Anesthesia: Height & Weight Height 5 ft 11 in 09/30/24 06:14 Weight: 124.103 kg 09/30/24 06:14 Body Mass Index (BMI) 38.1 09/30/24 06:14 Respiratory Assessment Respiratory Assessment - company manager: Respiratory Tract Infection Hx - company manager Hx Respiratory Tract Infection No 09/25/24 09:12 STOP Sleep Apnea STOP Sleep Apnea - company manager: STOP Sleep Apnea - company manager Hx Hypertension No 09/25/24 09:12 Hx Sleep Apnea No 09/25/24 09:12 CPAP BIPAP Do you snore loudly (louder No 09/25/24 09:12 than talking or can be heard Do you often feel tired/ No 09/25/24 09:12 fatigued/ sleepy during daytime? Has anyone observed you stop No 09/25/24 09:12 breathing during sleep? STOP Results Negative 09/25/24 09:12 QUESTION #5 FULL TEXT : Do you snore loudly (louder than talking or can be heard through closed doors)? 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 Specify any problems Hx of Preganancy in last 3 N/A 09/25/24 09:12 Months Nurse Filling Out Transfusion DSCHRIBER 09/25/24 09:12 & Questions: Date: 09/25/24 09/25/24 09:12 Time: 09:13 09/25/24 09:12 Patient unable to answer at this time (ie. confused, unrespo /Reproduction History /Reproductive History - company manager: /Reproductive Hx- company manager Hx Now No 09/25/24 09:12 Gestational Age (in weeks): EDC: Hx Hx Para Hx Section SAB No 09/25/24 09:12 [facility] Medical History Esophageal motility disorder Irritable bowel syndrome, unspecified Benign prostatic hyperplasia with incomplete bladder emptying Alcohol use Kidney stones Back pain Gastric reflux Former smoker Gallbladder problem Acid reflux Diarrhea Abdominal pain Home Medications ?Medication ?Instructions ?Recorded ?Last Taken ?Type alfuzosin 10 mg tablet,extended 10 mg PO QDAY 04/04/18 09/29/24 History release 24 hr (Uroxatral) multivitamin 1 tab PO DAILY 08/13/23 09/29/24 History amitriptyline 10 mg tablet 30 mg PO QHS 11/02/23 09/29/24 History esomeprazole magnesium 40 mg 40 mg PO BID 11/02/23 09/30/24 03:30 History capsule,delayed release (Nexium) saw palmetto 450 mg capsule 450 mg PO DAILY 11/02/23 09/29/24 History ciprofloxacin HCl 250 mg tablet 250 mg PO BID 08/13/24 09/29/24 History (Cipro) finasteride 5 mg tablet 5 mg PO QHS 08/13/24 09/29/24 History Allergy/AdvReac Type Severity Reaction Status Date / Time adhesive tape Allergy Severe Rash Verified 09/30/24 06:11 iodine Allergy Severe Rash Verified 09/30/24 06:11 povidone-iodine (From Allergy Severe Rash Verified 09/30/24 06:11 Betadine) Family History Father Hypertension High cholesterol Cancer Skin cancer Mother Cancer Skin cancer Surgical History History of carpal tunnel surgery of left wrist Hx of vasectomy History of esophagogastroduodenoscopy (EGD) History of laparoscopic cholecystectomy S/P carpal tunnel release S/P Achilles tendon repair Social History household members: spouse current occupational status: employed current occupation: [employer] Smoking Status: Former smoker second hand exposure: No alcohol intake: current alcohol intake frequency: holidays/special occasions only substance use type: does not use caffeine: No what type of physical activity do you participate in: walking frequency: 1-2 times per week seatbelt use: always Review of Systems (Anesthesia) ROS Narrative System reviewed and no additional complaints, except as documented.
--- NOTE | 2024-09-30 06:40 | PCM.HP.STD ---
HPI - General General Date of Admission: 09/30/24 Date of Service: 09/30/24 Chief Complaint: Screening colonoscopy HPI Narrative ABBEY RODRÍGUEZ, is a 49 M who presents today for screening colonoscopy. He has a past medical history of cholecystitis, gastroesophageal reflux disease. He only takes esomeprazole on a daily basis and some finasteride for BPH. He is in fairly good health. He has never had a colonoscopy in the past. [facility] Medical History (Updated 09/25/24 @ 09:17 by Farnaz Mason) Esophageal motility disorder Irritable bowel syndrome, unspecified Benign prostatic hyperplasia with incomplete bladder emptying Alcohol use Kidney stones Back pain Gastric reflux Former smoker Gallbladder problem Acid reflux Diarrhea Abdominal pain Home Medications ?Medication ?Instructions ?Recorded ?Last Taken ?Type alfuzosin 10 mg tablet,extended 10 mg PO QDAY 04/04/18 09/29/24 History release 24 hr (Uroxatral) multivitamin 1 tab PO DAILY 08/13/23 09/29/24 History amitriptyline 10 mg tablet 30 mg PO QHS 11/02/23 09/29/24 History esomeprazole magnesium 40 mg 40 mg PO BID 11/02/23 09/30/24 03:30 History capsule,delayed release (Nexium) saw palmetto 450 mg capsule 450 mg PO DAILY 11/02/23 09/29/24 History ciprofloxacin HCl 250 mg tablet 250 mg PO BID 08/13/24 09/29/24 History (Cipro) finasteride 5 mg tablet 5 mg PO QHS 08/13/24 09/29/24 History Allergy/AdvReac Type Severity Reaction Status Date / Time adhesive tape Allergy Severe Rash Verified 09/30/24 06:11 iodine Allergy Severe Rash Verified 09/30/24 06:11 povidone-iodine (From Allergy Severe Rash Verified 09/30/24 06:11 Betadine) Family History Father Hypertension High cholesterol Cancer Skin cancer Mother Cancer Skin cancer Surgical History (Updated 09/25/24 @ 09:17 by Farnaz Mason) History of carpal tunnel surgery of left wrist Hx of vasectomy History of esophagogastroduodenoscopy (EGD) History of laparoscopic cholecystectomy S/P carpal tunnel release S/P Achilles tendon repair Social History (Updated 08/13/24 @ 08:51 by Yanira Roche) household members: spouse current occupational status: employed current occupation: [employer] Smoking Status: Former smoker second hand exposure: No alcohol intake: current alcohol intake frequency: holidays/special occasions only substance use type: does not use caffeine: No what type of physical activity do you participate in: walking frequency: 1-2 times per week seatbelt use: always ROS Review of Systems ROS Unobtainable: other Constitutional Constitutional: Denies fatigue, fever(s), poor appetite, weight gain or weight loss ENT HEENT: Denies mouth lesions Cardiovascular Cardiovascular: Denies abdominal bloating, abdominal edema or abdominal pain Respiratory/Chest Respiratory/Chest: Denies change in mental status, change in phlegm color, chest congestion or chest tightness Gastrointestinal Gastrointestinal: Denies belching, bloating, change in bowel habits, change in stool character, chewing difficulty, coffee ground emesis, constipation, cramping, diarrhea, dyspepsia, dysphagia, early satiety, excessive flatus, fecal incontinence, heartburn, hematemesis, hematochezia, hemorrhoids, loose stools, melena, nausea, odynophagia, rectal bleeding, tenesmus, vomiting or weight changes Genitourinary Genitourinary: Denies abdominal discomfort, burning urination or itching Musculoskeletal Musculoskeletal: Reports as per HPI; Denies muscle weakness or myalgias Integumentary Integumentary: Denies jaundice Neurologic Neurologic: Denies lack of coordination or weakness Psychiatric Psychiatric: Denies confusion, depression, memory loss, mood swings, paranoia or suicidal ideation Endocrine Endocrinology: Denies systems reviewed and no addt'l complaints, except as documented Hematologic/Lymphatic Hematologic/Lymphatic: Denies anemia, easy bleeding, easy bruising or lymphadenopathy Allergic/Immunologic Allergic/Immunologic: Denies systems reviewed and no addt'l complaints, except as documented Vital Signs Vital Signs Vital Signs: 09/30/24 06:13 09/30/24 06:14 Temperature 98.9 F Temperature Source Temporal Pulse Rate 113 H Respiratory Rate 18 Respiratory Pattern Normal Blood Pressure 136/85 H Blood Pressure Mean 102 Blood Pressure Source Monitor Blood Pressure Position Semi-Fowlers Blood Pressure Location Left Arm Pulse Ox 99 Oxygen Delivery Method Room Air Weight Weight: 273 lb 9.6 oz Body Mass Index (BMI) 38.1 Physical Exam Const alert, oriented x3, no apparent distress, healthy appearing and well nourished General Appearance: cooperative, comfortable, well kempt and well developed Orientation / Consciousness: awake and oriented to person HEENT Head and Scalp: normocephalic and atraumatic Face and Sinus: normal facial exam Mouth: oral and palatal mucosa normal Eyes General Eye: normal appearance of both eyes Neck full ROM Lymph Lymphatic: no lymphadenopathy noted Chest inspection of chest normal Resp normal respiratory effort and no use of accessory muscles Cardio regular rate and regular rhythm GI normal to inspection, nondistended, normoactive bowel sounds, soft to palpation, non-tender, non-distended and no masses Auscultation: normoactive bowel sounds Palpation: soft Percussion: normal to percussion Rectal Exam: visual inspection normal and normal sphincter tone no CVA tenderness Back/Spine no CVA tenderness and normal ROM Extremity normal to inspection Peripheral Pulses: Yes pulses 2+ throughout Skin no rashes or lesions noted General Skin Exam: no breakdown, elasticity normal and turgor normal Neuro oriented x3 Motor Exam: strength 5/5 throughout Psych mental status grossly normal Appearance: grossly normal Attitude: calm Activity / Motor Behavior: appropriate eye contact Speech: normal speech Thought Process: normal thought process Thought Content: normal thought content Attention / Concentration: attention grossly intact Memory / Cognition: memory grossly intact Insight: insight good Judgement: judgement good Assessment & Plan Assessment/Plan (1) Encounter for screening for malignant neoplasm of colon: PLAN: He was explained alternatives including not withstanding bleeding, infection, sepsis, perforation, need for emergent surgery . He will have an ASA of 3.
--- NOTE | 2024-09-30 07:00 | COLBX_PTH ---
PATIENT: ABBEY RODRÍGUEZ LOC: EN U#:[id number] AGE/SX: 49/M ROOM: RE09/30/[address]: Dr. Andrew Brewer DO : 1975 BED: DIS: 09/30/2024 SPEC #: [id number] RECD: 09/30/24 11:14 STATUS: JOSE LUIS REAlly #: [id number] LILLIANA: 09/30/24 07:[address]: Andrew Brewer DEPT: SURGICAL PATHOLOGY RECD BY: Mary Urias ENTERED: 09/30/24 12:10 SP TYPE: COLON BX OT DR: Dr. Aleksandra De La Cruz MD Tissues: Transverse colon Procedures: Surgery Specimen Level IV HEADER OPERATION: Colonoscopy with biopsy PRE-OP DIAGNOSIS: Encounter for screening for malignant neoplasm of colon TISSUE SUBMITTED: Transverse polyp biopsy MICROSCOPIC DIAGNOSIS Transverse colon polyp, biopsy: Hyperplastic polyp. AM.mr 10/01/2024 MICROSCOPIC DESCRIPTION Slides are reviewed. GROSS DESCRIPTION Received in fixative is one container labeled with the patient's name and designated Transverse polyp biopsy. The specimen consists of one irregular fragment of light ojeda soft tissue that measures 0.5 x 0.5 x 0.1 cm. The specimen is totally submitted in one cassette. 09/30/2024 TC:5 CPT:03600
--- NOTE | 2024-09-30 07:47 | OP.COLON_ITS ---
Patient Name: Cayetano Rodríguez Procedure Date: 09/30/2024 7:14 AM Date of : 1975 Age: 49 Procedure: Colonoscopy Indications: Screening for colorectal malignant neoplasm Providers: Andrew Brewer DO Referring MD: Aleksandra De La Cruz Medicines: Monitored Anesthesia Care Patient Profile: This is a 49 year old male. Refer to note in patient chart for documentation of history and physical. Last Colonoscopy: none. The patient's first colonoscopy is today. Complications: No immediate complications. Procedure: Pre-Anesthesia Assessment: - Prior to the procedure, a History and Physical was performed, and patient medications and allergies were reviewed. The patient is competent. The risks and benefits of the procedure and the sedation options and risks were discussed with the patient. All questions were answered and informed consent was obtained. Patient identification and proposed procedure were verified by the physician in the pre-procedure area. Mental Status Examination: alert and oriented. Airway Examination: normal oropharyngeal airway and neck mobility. Respiratory Examination: clear to auscultation. CV Examination: normal. ASA Grade Assessment: II - A patient with mild systemic disease. After reviewing the risks and benefits, the patient was deemed in satisfactory condition to undergo the procedure. The anesthesia plan was to use monitored anesthesia care (MAC). Immediately prior to administration of medications, the patient was re-assessed for adequacy to receive sedatives. The heart rate, respiratory rate, oxygen saturations, blood pressure, adequacy of pulmonary ventilation, and response to care were monitored throughout the procedure. The physical status of the patient was re-assessed after the procedure. After I obtained informed consent, the scope was passed under direct vision. Throughout the procedure, the patient's blood pressure, pulse, and oxygen saturations were monitored continuously. The Colonoscope was introduced through the anus and advanced to the cecum, identified by appendiceal orifice and ileocecal valve. The colonoscopy was performed without difficulty. The patient tolerated the procedure well. The quality of the bowel preparation was adequate. The ileocecal valve, appendiceal orifice, and rectum were photographed. Scope In: 7:23:54 AM Scope Withdrawal Time 0 hours 11 minutes 12 seconds Scope Out: 7:40:32 AM Total Procedure Duration Time 0 hours 16 minutes 38 seconds Findings: The perianal and digital rectal examinations were normal. An 8 mm polyp was found in the transverse colon. The polyp was sessile. The polyp was removed with a jumbo cold forceps. Resection and retrieval were complete. Verification of patient identification for the specimen was done. Estimated blood loss was minimal. A few small-mouthed diverticula were found in the recto-sigmoid colon. The exam was otherwise without abnormality on direct and retroflexion views. Impression: - One 8 mm polyp in the transverse colon, removed with a jumbo cold forceps. Resected and retrieved. - Diverticulosis in the recto-sigmoid colon. - The examination was otherwise normal on direct and retroflexion views. Recommendation: - Discharge patient to home. - Resume previous diet. - Continue present medications. - Await pathology results. - Repeat colonoscopy in 5 years for surveillance. Procedure Code(s): --- Professional --- 71784, Colonoscopy, flexible; with biopsy, single or multiple CPT copyright 2021 [employer]. All rights reserved. The codes documented in this report are preliminary and upon head charrer review may be revised to meet current compliance requirements. Andrew Brewer DO 09/30/2024 7:46:18 AM This report has been signed electronically. Number of Addenda: 0 Note Initiated On: 09/30/2024 7:14 AM
--- NOTE | 2024-09-30 07:47 | OP.CCLET_ITS ---
09/30/2024 Aleksandra De La Cruz [address] [place] [address] Re : Colonoscopy procedure for Cayetano Rodríguez Dear Dr. De La Cruz This procedure was performed on Monday, September 30, 2024. My impressions and recommendations are as follows: Impressions : - One 8 mm polyp in the transverse colon, removed with a jumbo cold forceps. Resected and retrieved. - Diverticulosis in the recto-sigmoid colon. - The examination was otherwise normal on direct and retroflexion views. Recommendations : - Discharge patient to home. - Resume previous diet. - Continue present medications. - Await pathology results. - Repeat colonoscopy in 5 years for surveillance. My findings are described in the full procedure note, which is enclosed. If I can be of further assistance, please feel free to contact me at . Sincerely, Andrew Brewer, 09/30/2024 7:46:18 AM This report has been signed electronically.
--- NOTE | 2024-09-30 08:23 | PCM.POST.ANE ---
Anesthesia: Postop Eval I Current Vital Signs Temperature: 98.9 F Pulse Rate: 113 Blood Pressure: 136/85 Respiratory Rate: 16 Pulse Ox: 99 Assessment Airway patent: Yes Spontaneous unlabored respirations: Yes nausea: No Vomiting: No Anesthesia Complication: No Fluid Hydration Crystalloid volume administer (ml): 10 Total IV fluid infused: 10 Progress Note Anesthesia document: Postop Eval 1 completed: Yes
--- NOTE | 2024-09-30 08:24 | PCM.POSTANE2 ---
Anesthesia Postop Eval I Sum Postop Eval Completion status Anesthesia document: Postop Eval 1 completed: Yes Anesthesia Postop Eval I Summary Anesthesia Postop Eval I Summary: Anesthesia Postop Eval I: Assessment Summary Airway patent Yes 09/30/24 08:24 Spontaneous unlabored Yes 09/30/24 08:24 respirations Mental status nausea No 09/30/24 08:24 Vomiting No 09/30/24 08:24 Anesthesia Postop Eval I: Fluid Summary Crystalloid volume administer 10 09/30/24 08:24 (ml) Colloids volume administered ( ml) Blood Product volume administered (ml) Total IV fluid infused 10 09/30/24 08:24 Anesthesia Postop Eval I: Summary Notes Anesthesia Complication No 09/30/24 08:24 Anesthesia Complication Comment: Post-operative progress note Anesthesia: Postop Eval II Evaluation Mental status: Awake Pain Level: 0 nausea: No Vomiting: No
== END 2024-09-30 08:22 | disposition home or self-care (01) ==
LOC: EN 05:51 → AC 05:52
PROVIDERS: PCP Family Medicine; Referring Provider Family Medicine; Visit Provider Internal Medicine Gastroenterology
PROC: 0DJD8ZZ Inspection of Lower Intestinal Tract, Via Natural or Artificial Opening Endoscopic (ICD-10-PCS; CPT 45378; principal; 2024-09-30 06:55)
DX: Z12.11 Encounter for screening for malignant neoplasm of colon (principal); K21.9 Gastro-esophageal reflux disease without esophagitis; K57.30 Diverticulosis of large intestine without perforation or abscess without bleeding; K63.5 Polyp of colon; Z87.891 Personal history of nicotine dependence
CPT/HCPCS: 45380; 88305; A4216; J2405

== ENCOUNTER → 2025-09-04 | Outpatient (CLI) | payer OTHER, SELFPAY ==
--- OUTSIDE RECORDS SUMMARY | 2025-09-04 17:37 | XMS RPT_ITS | CCD ---
Author Organization [facility] Inform ion Partnership [facility] Care Team Providers Care News Copy Editor Name Role Phone Aleksandra De La Cruz Primary Care Provider ALEKSANDRA DE LA CRUZ Primary Care Unavailable KURT STARK Referring Unavailable FARIHA, ALEKSANDRA BARNES Primary Care Unavailable KURT STARK Attending Unavailable Carmelo Garsia Referring Unavailable Carmelo Garsia Attending Unavailable Carmelo Garsia Consulting Unavailable Corryiff, Aleksandra S Primary Care Unavailable Carmelo Garsia Referring Unavailable Carmelo Garsia Attending Unavailable Jolliff, Aleksandra S Primary Care Unavailable [place], Haley Referring Unavailable [place], Haley Attending Unavailable Jolliff, Aleksandra S Primary Care Unavailable FriendAndrew Attending Unavailable FriendAndrew Consulting Unavailable Jolliff, Aleksandra S Referring Unavailable Jolliff, Aleksandra S Primary Care Unavailable Friend, Andrew Attending Unavailable Jolliff, Aleksandra S Referring Unavailable Jolliff, Aleksandra S Primary Care Unavailable Jolliff, Aleksandra S Referring Unavailable Jolliff, Aleksandra S Primary Care Unavailable Carmelo Garsia Attending Unavailable Corryiff, Aleksandra S Referring Unavailable Jolliff, Aleksandra S Primary Care Unavailable Carmelo Garsia Attending Unavailable Yanira Roche Attending Unavailable Jolliff, Aleksandra S Primary Care Unavailable Allergies Allergy Classification Reported Allergen(s) Allergy Type Date of Onset Reaction(s) Facility (1 source) Adhesive Tape Drug allergy (disorder) 09-30-2024 [facility] (1 source) Iodine Drug Allergy 09-30-2024 [facility] (1 source) Povidone-Iodine Drug Allergy 09-30-2024 [facility] Medications Current Medications Medication Drug Class(es) Dates Sig (Normalized) Sig (Original) 24 hr alfuzosin hydrochloride 10 mg extended release oral tablet (8 sources) alpha-Adrenergic Vijay Start: 04-04-2018 take 1 tablet by mouth once daily, then take 1 tablet by mouth every twenty-four hours Alfuzosin (Uroxatral) 10 mg tablet extended release 24 hr Active 10 MG PO daily April 04, 2018 12:00am Comment on above: Take 10 mg by mouth once daily. sugar-free cholestyramine resin 4000 mg powder for oral suspension (8 sources) Bile Acid Sequestrant Start: 04-06-2018 take 1 dose by mouth twice daily Cholestyramine-Asp artame Active 4 GM PO TWICE A DAY April 06, 2018 12:00am administer w/meal; avoid other meds within 1hr before or 4-6hr after dose Comment on above: Take 4 g by mouth tw ice daily. ciprofloxacin 250 mg oral tablet (8 sources) Quinolone Antimicrobial Start: 02-05-2018 take 1 tablet by mouth twice daily Ciprofloxacin Hcl (Cipro) 250 mg tablet Active 250 MG PO TWICE A DAY February 05, 2018 12:00am take 1 tablet by mouth twice carlos ly ciprofloxacin HCl (CIPRO) 500 mg tablet Take 500 mg by mouth twice daily. 0 Active Comment on above: Take 500 mg by mouth twice daily. dexlansoprazole 60 mg delayed release oral capsule (3 sources) Proton Pump Inhibitor Start: take 1 capsule by mouth once daily Dexlansoprazole (Dexilant) 60 mg capsule,biphase delayed releas Active 60 MG PO daily February 05, 2018 12:00am dutasteride 0.5 mg oral capsule (11 sources) 5-alpha Reductase Inhibitor Start: 016 End: take 1 capsule by mouth once daily Dutasteride (Avodart) 0.5 mg capsule Active 0.5 MG PO daily February 05, 2018 12:00am Comment on above: Take 0.5 mg by mouth once daily. Magnesium Sulfate / potassium sulfate / sodium sulfate (1 source) Start: 023 End: 023 sodium sulfate-potassium sulfate-magnesium sulfate (SUPREP BOWEL PREP KIT) 17.5-3.13-1.6 gram oral liquid Indications: Colon cancer screening Take 1 Bottle by mouth as directed for 2 days. Refer to instructions given by your provider. 1 Kit 0 04/16/2023 04/18/2023 Active Comment on above: Take 1 Bottle by mauri as directed for 2 days. Refer to instructions given by your provider. Completed/Discontinued Medications Medication Drug Class(es) Dates Sig (Normalized) Sig (Original) amitriptyline hydrochloride 10 mg oral tablet (9 sources) Tricyclic Antidepressant Start: 04-16-2023 take 3 tablets by mouth once daily at bedtime amitriptyline (ELAVIL) 10 mg tablet Take 3 tablets by mouth daily at bedtime. 270 tablet 3 04/16/2023 Active Start: 04-17-2022 End: 02-11-2023 take 3 tablets by mouth once daily at bedtime amitriptyline (ELAVIL) 10 mg tablet Take 3 tablets by mouth daily at bedtime. 270 tablet 3 04/16/2023 Active Start: 12-20-2021 End: 04-15-2022 take 3 tablets by mouth once daily at bedtime amitriptyline (ELAVIL) 10 mg tablet Take 3 tablets by mouth daily at bedtime. 270 tablet 3 12/20/2021 04/15/2022 Discontinued Comment on above: Take 3 tablets by mo [facility] daily at bedtime. AVOCADO OIL, BULK, MISC (5 sources) AVOCADO OIL, BUL K, MISC 0.5 mg. 0 Active Comment on above: 0.5 mg. esomeprazole 40 mg delayed release oral capsule (12 sources) Proton Pump Inhibitor Start: take 1 capsule by mouth twice daily before breakfast esomeprazole (NEXIUM) 40 mg capsule Take 1 capsule by mouth twice daily before meals. Take 30 min before breakfast and dinner 180 capsule 3 04/16/2023 Active Start: 11-23-2022 End: 02-14-2023 take 1 capsule by mouth twice daily before breakfast esomeprazole (NEXIUM) 40 mg capsule Take 1 capsule by mouth twice daily before meals. Take 30 min before breakfast and dinner 180 capsule 3 04/16/2023 Active Start: 04-17-2022 take 1 capsule by mo [facility] twice daily before breakfast esomeprazole (NEXIUM) 40 mg capsule Take 1 capsule by mouth twice daily before meals. Take 30 min before breakfast and dinner 180 capsule 3 04/17/2022 Active Start: 12-20-2021 End: 04-15-2022 take 1 capsule by mouth twice daily before breakfast esomeprazole (NEXIUM) 40 mg capsule Take 1 capsule by mouth twice daily before meals. Take 30 min before breakfast and dinner 180 capsule 3 12/20/2021 04/15/2022 Discontinued Start: 07-21-2016 End: 02-05-2018 take 20 mg by mouth twice daily Esomeprazole Magnesium Discontinued 20 MG PO TWICE A DAY July 21, 2016 12:00am February 05, 2018 2:34pm Comment on above: Take 1 capsule by mo uth twice daily before meals. Take 30 min before breakfast and dinner take 1 capsule by mo uth twice a day 30 MINUTES BEFORE BREAKFAST AND DINNER Take 1 capsule by mo uth twice daily before meals. sulfamethoxazole 800 mg / trimethoprim 160 mg oral tablet (3 sources) Dihydrofolate Reductase Inhibitor Antibacterial, Sulfonamide Antimicrobial Start: 07-21-20 End: 02-06-20 18 take 1 tablet by mouth twice daily Sulfamethoxazole-Tr imethoprim Discontinued 1 TABLET PO TWICE A DAY July 21, 2016 12:00am February 05, 2018 2:34pm Problems Problem Classification Problem Date Documented Da te Episodic/Chronic Abdominal pain (3 sources) Abdominal pain; Translations: [Unspecified abdominal pain] 03-21-2018 Episodic Biliary tract disease (6 sources) Gallbladder problem; Translations: [Disease of gallbladder, unspecified] 03-21-2018 Episodic Esophageal disorders (6 sources) Esophageal dysmotility; Translations: [Dyskinesia of esophagus] 03-21-2018 Chronic Esophageal disorders (2 sources) Aperistalsis of esophagus; Translations: [Achalasia of cardia] Onset: 05-09-2023 Episodic Other gastrointestinal disorders (3 sources) Diarrhea; Translations: [Diarrhea, unspecified] 03-21-2018 Episodic Other gastrointestinal disorders (1 source) Esophageal dysphagia; Translations: [Other dysphagia] Episodic Other nervous system disorders (1 source) Carpal tunnel syndrome, left upper limb; Translations: [Carpal tunnel syndrome, left upper limb] Onset: 11-16-2023 Chronic Other screening for suspected conditions (not mental disorders or infectious disease) (4 sources) Patient encounter status; Translations: [Encounter for screening for malignant neoplasm of colon] Onset: 05-22-2024 Episodic Residual codes; unclassified (3 sources) History of hernia repair; Translations: [Other specified postprocedural states] 04-04-2018 Episodic Residual codes; unclassified (3 sources) History of orthopedic surgery; Translations: [Other specified postprocedural states] 03-21-2018 Episodic Results Test Name Value Interpretation Reference Range Facility Colonoscopy Reporton 024 Colonoscopy Report [facility] Medical Records Department [address] [place] [address] Colonoscopy Report MR#: [id number] Acct: [id number] Name: ABBEY JORDAN Rep #: [id number] : 1975 49 From: Andrew Brweer DO PCP: Dr. Aleksandra De La Cruz MD Status[place] Patient Name: Abbey Jordan Procedure Date: 09/30/2024 7:14 AM Date of : 1975 Age: 49 Procedure: Colonoscopy Indications: Screening for colorectal malignant neoplasm Providers: Andrew Brewer DO Referring MD: Aleksandra De La Cruz Medicines: Monitored Anesthesia Care Patient Profile: This is a 49 year old male. Refer to note in patient chart for documentation of history and physical. Last Colonoscopy: none. The patient's first colonoscopy is today. Complications: No immediate complications. Procedure: Pre-Anesthesia Assessment: - Prior to the procedure, a History and Physical was performed, and patient medications and allergies were reviewed. The patient is competent. The risks and benefits of the procedure and the sedation options and risks were discussed with the patient. All questions were answered and informed consent was obtained. Patient identification and proposed procedure were verified by the physician in the pre-procedure area. Mental Status Examination: alert and oriented. Airway Examination: normal oropharyngeal airway and neck mobility. Respiratory Examination: clear to auscultation. CV Examination: normal. ASA Grade Assessment: II - A patient with mild systemic disease. After reviewing the risks and benefits, the patient was deemed in satisfactory condition to undergo the procedure. The anesthesia plan was to use monitored anesthesia care (MAC). Immediately prior to administration of medications, the patient was re-assessed for adequacy to receive sedatives. The heart rate, respiratory rate, oxygen saturations, blood pressure, adequacy of pulmonary ventilation, and response to care were monitored throughout the procedure. The physical status of the patient was re-assessed after the procedure. After I obtained informed consent, the scope was passed under direct vision. Throughout the procedure, the patient's blood pressure, pulse, and oxygen saturations were monitored continuously. The Colonoscope was introduced through the anus and advanced to the cecum, identified by appendiceal orifice and ileocecal valve. The colonoscopy was performed without difficulty. The patient tolerated the procedure well. The quality of the bowel preparation was adequate. The ileocecal valve, appendiceal orifice, and rectum were photographed. Scope In: 7:23:54 AM Scope Withdrawal Time 0 hours 11 minutes 12 seconds Scope Out: 7:40:32 AM Total Procedure Duration Time 0 hours 16 minutes 38 seconds Findings: The perianal and digital rectal examinations were normal. An 8 mm polyp was found in the transverse colon. The polyp was sessile. The polyp was removed with a jumbo cold forceps. Resection and retrieval were complete. Verification of patient identification for the specimen was done. Estimated blood loss was minimal. A few small-mouthed diverticula were found in the recto-sigmoid colon. The exam was otherwise without abnormality on direct and retroflexion views. Impression: - One 8 mm polyp in the transverse colon, removed with a jumbo cold forceps. Resected and retrieved. - Diverticulosis in the recto-sigmoid colon. - The examination was otherwise normal on direct and retroflexion views. Recommendation: - Discharge patient to home. - Resume previous diet. - Continue present medications. - Await pathology results. - Repeat colonoscopy in 5 years for surveillance. Procedure Code(s): --- Professional --- 39543, Colonoscopy, flexible; with biopsy, single or multiple CPT copyright 2021 [employer]. All rights reserved. The codes documented in this report are preliminary and upon leaflet or newspaper deliverer review may be revised to meet current compliance requirements. Andrew Brewer DO 09/30/2024 7:46:18 AM This report has been signed electronically. Number of Addenda: 0 Note Initiated On: 09/30/2024 7:14 AM 09/30/24 0746 Date Andrew Brewer DO Cosigner Signature: Date (if indicated) CC: Dr. Aleksandra De La Cruz MD; Andrew Brewer, Date Dictated: 09/30/24713 Date Transcribed: Control Systems Eng: RF Signed [facility] MR/POSTOP.ANEon 09-30-2024 MR/POSTOP.ANE [facility] Medical Records Department [address] [place] [address] Anesthesia Postop Eval I 09/30/24822 MR#: [id number] Acct: [id number] Name: ABBEY JORDAN RA Rep #: [id number] : 1975 49 From: Lenny Suárez MD PCP: Dr. Alkesandra De La Cruz MD Status:[facility] Y Race: C Location: Anesthesia: Postop Eval I Current Vital Signs Temperature: 98.9 F Pulse Rate: 113 Blood Pressure: 136/85 Respiratory Rate: 16 Pulse Ox: 99 Assessment Airway patent: Yes Spontaneous unlabored respirations: Yes nausea: No Vomiting: No Anesthesia Complication: No Fluid Hydration Crystalloid volume administer (ml): 10 Total IV fluid infused: 10 Progress Note Anesthesia document: Postop Eval 1 completed: Yes 09/30/24823 Date Lenny Suárez MD Cosigner Signature: Date CC: Signed [facility] MR/[id number] 09-30-2024 MR/POSTOPAN2 [facility] Medical Records Department [address] [place] [address] Anesthesia Postop Eval II 09/30/24823 MR#: [id number] Acct: [id number] Name: ABBEY JORDAN Rep #: [id number] : 1975 49 From: Lenny Suárez MD PCP: Dr. Aleksandra De La Cruz MD Status:DEP SD Y Race: C Location: EN Anesthesia Postop Eval I Sum Postop Eval Completion status Anesthesia document: Postop Eval 1 completed: Yes Anesthesia Postop Eval I Summary Anesthesia Postop Eval I Summary: Anesthesia Postop Eval I: Assessment Summary Airway patent Yes 09/30/24 08:24 Spontaneous unlabored Yes 09/30/24 08:24 respirations Mental status nausea No 09/30/24 08:24 Vomiting No 09/30/24 08:24 Anesthesia Postop Eval I: Fluid Summary Crystalloid volume administer 10 09/30/24 08:24 (ml) Colloids volume administered ( ml) Blood Product volume administered (ml) Total IV fluid infused 10 09/30/24 08:24 Anesthesia Postop Eval I: Summary Notes Anesthesia Complication No 09/30/24 08:24 Anesthesia Complication Comment: Post-operative progress note Anesthesia: Postop Eval II Evaluation Mental status: Awake Pain Level: 0 nausea: No Vomiting: No 09/30/24823 Date Lenny Suárez MD Cosigner Signature: Date CC: Signed [facility] Surgery Specimen Level Shavonne 09-30-2024 Surgery Specimen Level IV -------- Patient Age/Sex Location Account Attending Physician -------- ABBEY JODRAN 49/M EN [id number] Andrew Brewer DO -------- Specimen: [id number] Received: 09/30/24 Status: [facility] Num: [id number] Spec Type: COLON BX Subm Dr: Andrew Brewer DO HEADER OPERATION: Colonoscopy with biopsy PRE-OP DIAGNOSIS: Encounter for screening for malignant neoplasm of colon TISSUE SUBMITTED: Transverse polyp biopsy -------- MICROSCOPIC DIAGNOSIS Transverse colon polyp, biopsy: Hyperplastic polyp. AM. 10/01/2024 MICROSCOPIC DESCRIPTION Slides are reviewed. GROSS DESCRIPTION Received in fixative is one container labeled with the patient's name and designated Transverse polyp biopsy. The specimen consists of one irregular fragment of light ojeda soft tissue that measures 0.5 x 0.5 x 0.1 cm. The specimen is totally submitted in one cassette. AM. 09/30/2024 TC:5 CPT:52403 -------- Patient Age/Sex Location Account Attending Physician -------- ABBEY JORDAN 49/M EN [id number] Andrew Brewer DO -------- Signed (signature on file) Dr. Amari Alexander DO 10/01/24 1257 -------- Normal [facility] Comment on above: Performed By: #### P UMANG #### [facility] [place], [place], [id number] PSA,Total - Annual Screenon 05-06-2024 PSA,TOT SCREEN 0.18 ng/mL Normal 0.00-4.00 [facility] Comment on above: Result Comment: This test was performed using the TPSA assay method for the Dimension chemistry system. Values obtained with different assay methods cannot be used interchangably. When changing PSA assays in the course of monitoring a patient, additional sequential testing should be carried out to confirm baseline values. Performed By: #### L [phone] #### [facility] [address] [place], [address] Orthopedic Visit Reporton Orthopedic Visit Report [facility] [address] [place] [address] [address] [place] [address] OFFICE VISIT Date of Service: 11/26/23 MR#: [id number] Acct: [id number] Name: ABBEY JORDAN Rep #: [id number] : 1975 Provider: Dr. Caremlo motta, DO Age/Sex: 48/M Location: [facility] Status: Signed Intake Vital Signs 08/13/23 08:27 11/13/23 10:15 11/19/23 12:41 Height 5 ft 11 in 5 ft 11 in 5 ft 11 in Intake Visit Reasons: left wrist Is patient in pain?: No Allergies adhesive tape Allergy (Severe, Verified 11/26/23 15:56) Rash iodine Allergy (Severe, Verified 11/26/23 15:56) Rash povidone-iodine [From Betadine] Allergy (Severe, Verified 11/26/23 15:56) Rash Medications dutasteride 0.5 mg capsule (Avodart) 0.5 mg PO QDAY 02/05/18 [History Confirmed 11/26/23] alfuzosin 10 mg tablet,extended release 24 hr (Uroxatral) 10 mg PO QDAY 04/04/18 [History Confirmed 11/26/23] multivitamin 1 tab PO DAILY 08/13/23 [History Confirmed 11/26/23] amitriptyline 10 mg tablet 30 mg PO QHS 11/02/23 [History Confirmed 11/26/23] esomeprazole magnesium 40 mg capsule,delayed release (Nexium) 40 mg PO BID 11/02/23 [History Confirmed 11/26/23] saw palmetto 450 mg capsule 450 mg PO DAILY 11/02/23 [History Confirmed 11/26/23] [facility] Medical History (Updated 11/19/23 @ 15:[address] Carmelo Garsia, ) Abdominal pain Acid reflux Alcohol use Back pain Diarrhea Former smoker Gallbladder problem Gastric reflux Kidney stones Surgical History (Updated 11/02/23 @ 08:25 by Verona Rivas) History of laparoscopic cholecystectomy S/P Achilles tendon repair S/P carpal tunnel release Family History Father Hypertension High cholesterol Cancer Skin cancer Mother Cancer Skin cancer Social History Smoking Status: Former smoker second hand exposure: No alcohol intake: current alcohol intake frequency: holidays/special occasions only substance use type: does not use caffeine: No what type of physical activity do you participate in: walking frequency: 1-2 times per week seatbelt use: always HPI left wrist Details: This documentation accurately reflects the service provided and the decisions made by me, Dr. Carmelo Garsia, 11/26/23 1548. Part of today???s visit was documented by Aleksandra Lowery ATC, acting as scribe. ABBEY JORDAN is a 48 year old M here today for S/P Left open carpal tunnel release dos 11/13/23. Patient states that he is having itchiness over his incision from healing. He denies any redness or drainage. Patient denies any numbness or tingling. Patient denies any pain medications. Patient notes that he had a rash from his elbow down due to the cleaning solution. Patient notes that he took a medrol dose florencio which has helped with his rash. Ortho Exam General General: Yes no acute distress Neurologic: Yes alert and Yes oriented x3 Psychologic: Yes reasonable and appropriate Left Wrist/Hand Skin/Wound: Yes healing, Yes suture/keren removed and Yes capillary refill normal WRIST: good wrist and finger range of motion sutures removed no sign of infection. rash is fading . Supplemental Info 11/13/2023: Left carpal tunnel release Dr. Garsia 07/25/2023 EMG left upper extremity: Mild left carpal tunnel syndrome Coding Level of Care Code Global Post Op Diagnoses Orthopedic aftercare Z47.89 Assessment and Plan Assessment and Plan (1) Orthopedic aftercare: Plan Patient should continue to work on wrist and finger range of motion. Patient has a lifting restriction of 5 pounds for the week and then may slowly progress his lifting within reason. He might continue to have soreness over the incision. He may massage the incision to help with desensatization. Follow up on an as needed basis or sooner if pain, swelling, numbness or associated symptoms, or concerns develop. All questions answered. Patient in agreement of plan. 11/26/23 1610 Date Carmelo Garsia DO Cosigner Signature: Date (if applicable) CC: [facility] Orthopedic Visit Reporton Orthopedic Visit Report [facility] [address] [place] [place] [address] OFFICE VISIT Date of Service: 11/19/23 MR#: [id number] Acct: [id number] Name: ABBEY JORDAN Rep #: [id number] : 1975 Provider: Dr. Carmelo motta DO Age/Sex: 48/M Location: [facility] Status: Signed Intake Vital Signs 11/13/23 10:15 11/19/23 12:41 Height 5 ft 11 in 5 ft 11 in Intake Visit Reasons: LEFT WRIST Chief Complaint: left hand Allergies adhesive tape Allergy (Severe, Verified 11/13/23 09:55) Rash iodine Allergy (Severe, Verified 11/13/23 09:55) Rash povidone-iodine [From Betadine] Allergy (Severe, Verified 11/13/23 09:55) Rash [facility] Medical History (Updated 11/19/23 @ 15:[address] Carmelo Garsia DO) Abdominal pain Acid reflux Alcohol use Back pain Diarrhea Former smoker Gallbladder problem Gastric reflux Kidney stones Surgical History (Updated 11/02/23 @ 08:25 by Verona Rivas) History of laparoscopic cholecystectomy S/P Achilles tendon repair S/P carpal tunnel release Family History Father Hypertension High cholesterol Cancer Skin cancer Mother Cancer Skin cancer Social History Smoking Status: Former smoker second hand exposure: No alcohol intake: current alcohol intake frequency: holidays/special occasions only substance use type: does not use caffeine: No what type of physical activity do you participate in: walking frequency: 1-2 times per week seatbelt use: always HPI LEFT WRIST Details: This documentation accurately reflects the service provided and the decisions made by me, Dr. Carmelo Garsia, DO 11/19/23 1457. Part of today???s visit was documented by Nette ALBRIGHT, acting as scribe. ABBEY JORDAN is a 48 year old M here today for his left wrist. DOS: 11/13/23 Left carpal tunnel release. He is here because he has a rash that started at his wrist and has moved up his arm almost to the shoulder. He has been taking 50mg of benadryl every 4 hours which he doesn't think is helping. He states that he has had 4 other surgeries and this same thing has happened. He states that his last surgery was a cholecystectomy and Dr. Sim gave him prednisone. He has also used hydrocortisone cream and ice. Ortho Exam General General: Yes no acute distress Neurologic: Yes alert and Yes oriented x3 Psychologic: Yes reasonable and appropriate Right Wrist/Hand Skin/Wound: No Swelling and No Ecchymosis Left Wrist/Hand Skin/Wound: No Swelling, No Ecchymosis and Yes capillary refill normal WRIST: Incision looks good no signs of infection has good full finger range of motion he has a erythematous raised petechial rash dorsum from wrist to just proximal of the elbow Supplemental Info 07/25/2023 EMG left upper extremity: Mild left carpal tunnel syndrome Coding Level of Care Code Global Post Op Diagnoses Rash at application site R21 Assessment and Plan Assessment and Plan (1) Rash at application site: Status: Acute Plan: Patient has developed an allergic reaction most likely from the prepping solution as he has had this in the past with other surgeries we have tried Benadryl which has not been successful as well as topical OTC and prescription strength steroid cream. At this point I will call him in a Askemrol Dosepak and see him back next week for suture removal Medications: New methylprednisolone (Medrol (Florencio)) take as directed 21 tabs 0RF 11/19/23 1541 Date Carmelo Garsia DO Cosigner Signature: Date (if applicable) CC: [facility] Discharge Instructionon 10-23 Discharge Instruction [facility] Medical Records Department [address] [place] [address] Instructions for Home/Discharge Instructions 11/13/23 1142 MR#: [id number] Acct: [id number] Name: ABBEY JORDAN Rep #: [id number] : 1975 48 From: Carmelo Garsia DO PCP: Dr. Aleksandra De La Cruz MD Status[place] [place] Instructions Diet Discharge Diet: No restrictions Activity Additional Activity Instructions:: Ice and elevate operative extremity next 72 hours. Keep dressing on clean and dry for 48 hours then may remove and allow warm soapy water to rinse over incision but do not submerge until sutures are out. Then apply bandaid over incision and change daily. encourage finger range of motion. Not lift more than 1/2 pound. Minimize narcotic use only as needed and directed, may use OTC NSAID and Tylenol to supplement/substitute for pain control. Dressing / Incision Call your doctor if you observe: Shortness of breath and Chest pain Additional Dressing/Incision Instructions:: Ice and elevate operative extremity next 72 hours. Keep dressing on clean and dry for 48 hours then may remove and allow warm soapy water to rinse over incision but do not submerge until sutures are out. Then apply bandaid over incision and change daily. encourage finger range of motion. Not lift more than 1/2 pound. Minimize narcotic use only as needed and directed, may use OTC NSAID and Tylenol to supplement/substitute for pain control. Follow Up Care Please Follow Up With: Carmelo Garsia DO When: 2 weeks Test Results: Test results from this visit will be discussed in further detail at your follow-up appointment, if applicable. Discharge Plan Admission Primary Reason for Your Visit: Left carpal tunnel release Attending Provider: Carmelo Garsia Primary Care Provider: Aleksandra De La Cruz Discharge Orders/Prescriptions Prescriptions: New oxycodone 5 mg tablet 5 - 10 mg PO Q4H PRN (Reason: pain) 3 Days Qty: 12 0RF Continued ciprofloxacin HCl [Cipro] 250 mg tablet 250 mg PO BID dutasteride [Avodart] 0.5 mg capsule 0.5 mg PO QDAY alfuzosin [Uroxatral] 10 mg tablet extended release 24 hr 10 mg PO QDAY multivitamin Tablet 1 tab PO DAILY esomeprazole magnesium [Nexium] 40 mg capsule,delayed release(DR/EC) 40 mg PO BID amitriptyline 10 mg tablet 30 mg PO QHS Patient Comments: take 3 tablets by mouth at bedtime saw palmetto 450 mg capsule 450 mg PO DAILY Rx Instructions: give with food (meal/snack) Referrals / Follow Up: Aleksandra De La Cruz MD [Primary Care Provider] - Disposition Disposition (needs filled in before D/C Order can be placed): Home, Self Care 11/13/23 1145 Carmelo Garsia DO CC: Dr. Aleksandra De La Cruz MD Signed [facility] Operative Reporton 4 Operative Report [facility] Medical Records Department [address] [place] [address] Operative Report 11/13/23 1142 MR#: [id number] Acct: [id number] Name: ABBEY JORDAN Rep #: [id number] : 1975 48 From: Carmelo Garsia DO PCP: Dr. Aleksandra De La Cruz MD Status:[facility] Location: [place] [address] Operative Report Date of Procedure: 11/13/23 Preoperative diagnosis; left carpal tunnel syndrome Postoperative diagnosis; same Procedure: Left open carpal tunnel release Anesthesia: Local with MAC Tourniquet time; 12 minutes 250 mm Hg Complications: None Indication for procedure; This is a 48-year-old male with long-standing symptoms consistent with carpal tunnel syndrome the patient did have electrodiagnostic evidence of this and has failed conservative treatment. Risks benefits and alternatives were reviewed including risks of bleeding infection nerve artery tissue damage need for further surgery and continued pain and symptoms, hypersensitivity to scar and Pillar pain. Procedure; The patient was met in the preoperative holding area the operative extremity was identified by both patient and physician and was marked the patient was met by anesthesia and brought back to the operating room and transferred to the operating table in the supine position. Anesthesia was started. A well-padded tourniquet was placed on the operative upper extremity. The patient was prepped and draped in the usual sterile fashion. A timeout was called to ensure the proper patient procedure and extremity were being contemplated. 0.5 percent lidocaine with epinephrine was injected into the incisional area. An Esmarch was used to exsanguinate the extremity. The tourniquet was inflated to 250 mmHg. A midline incision was made with a 15 blade scalpel between the thenar and hypothenar eminence. This was carried down through the skin and subcutaneous tissue. Bridgette retractors were then used, a deep blade scalpel was used to make a deep incision in the palmar aponeurosis. The bridgette retractors were then placed deep to this and the transverse carpal ligament was identified a perforation was made with a scalpel and a Littler scissors were used to complete the release of the transverse carpal ligament distally under direct visualization with the tips facing ulnarly until the perivascular fat was reached. Then turning our attention proximally using a tension slide technique the proximal extent of the transverse carpal ligament was released . There was noted to be hypertrophy of the transverse carpal ligament. The wound was thoroughly irrigated and was closed with 4-0 nylon vertical mattress stitches. Dressing was applied in the form of xeroform 4 x 4, web roll and an kee wrap. Tourniquet was let down there is no intraoperative complications patient tolerated the procedure well and was transferred to the PACU. All counts were correct. 11/13/23 1142 Cosigner Signature (if applicable): CC: Dr. Aleksandra De La Cruz MD; Dr. Carmelo Garsia DO Signed [facility] FRANKY BY IFA WITH REFLEXon Nuclear Ab IF (S) [Titer] Negative Normal Negative [facility] Comment on above: Order Comment: Speci men Type: BLOOD SPECIMEN Ordering Facility: [facility] Address: [address] [place] [address] Result Comment: Anti -nuclear antibody test is used as an aid in diagnosis of systemic autoimmune diseases. Where positive and clinically warranted, follow-up using disease-specific testing is recommended. Low positive titers are not uncommon with advanced age, certain chronic infections, and malignancies among others. Test methodology: Indirect fluorescence immunoassay (IFA) using HEp-2 cells. Performed By: #### A NAIFR #### [facility] CLIA [id number] [address] [place] [address] [place] CBC panel Auto (Bld)on 05-09 Erythrocyte distribution width (RBC) [Ratio] 13.2 % Normal 11.5-15.0 [facility] Comment on above: Order Comment: Carmen motta Type: BLOOD SPECIMEN Ordering Facility: [facility] Address: [address] [place] [address] Performed By: #### 5 8410-2 #### [facility] CLIA [id number] [address] [place] [address] [place] Hematocrit (Bld) [Volume fraction] 45.8 % Normal 39.0-51.0 [facility] Comment on above: Order Comment: Carmen motta Type: BLOOD SPECIMEN Ordering Facility: [facility] Address: [address] [place] [address] Performed By: #### 5 8410-2 #### [facility] CLIA [id number] [address] [place] [address] [place] Hemoglobin (Bld) [Mass/Vol] 15.4 g/dL Normal 13.0-17.0 [facility] Comment on above: Order Comment: Carmen motta Type: BLOOD SPECIMEN Ordering Facility: [facility] Address: [address] [place] [address] Performed By: #### 5 8410-2 #### [facility] CLIA [id number] [address] [place] [address] [place] MCH (RBC) [Entitic mass] 27.6 pg Normal 26.0-34.0 [facility] Comment on above: Order Comment: Speci men Type: BLOOD SPECIMEN Ordering Facility: [facility] Address: [address] [place], [place] [address] Performed By: #### 5 8410-2 #### [facility] CLIA [id number] [address] [place] [address] [place] MCHC (RBC) [Mass/Vol] 33.6 g/dL Normal 30.5-36.0 [facility] Comment on above: Order Comment: Speci men Type: BLOOD SPECIMEN Ordering Facility: [facility] Address: [address] [place], [place] [address] Performed By: #### 5 8410-2 #### [facility] CLIA [id number] [address] [place] MCV (RBC) [Entitic vol] 82.1 fL Normal 80.0-100.0 [facility] Comment on above: Order Comment: Speci men Type: BLOOD SPECIMEN Ordering Facility: [facility] Address: [address] [place], [place] [address] Performed By: #### 5 8410-2 #### [facility] CLIA [id number] [address] [place] [address] [place] Nucleated RBC (Bld) [#/Vol] 10*3/uL Normal <0.01 [facility] Comment on above: Order Comment: Speci men Type: BLOOD SPECIMEN Ordering Facility: [facility] Address: [address] [place], [place] [address] Performed By: #### 5 8410-2 #### [facility] CLIA [id number] [address] [place] [address] [place] Platelet mean volume (Bld) [Entitic vol] 9.8 fL Normal 9.0-12.7 [facility] Comment on above: Order Comment: Speci men Type: BLOOD SPECIMEN Ordering Facility: [facility] Address: [address] [place], [place] [address] Performed By: #### 5 8410-2 #### [facility] CLIA [id number] [address] [place] [address] [place] Platelets (Bld) [#/Vol] 205 10*3/uL Normal 150-400 [facility] Comment on above: Order Comment: Speci men Type: BLOOD SPECIMEN Ordering Facility: [facility] Address: [address] [place], [place] [address] Performed By: #### 5 8410-2 #### [facility] CLIA [id number] [address] [place] [address] [place] RBC (Bld) [#/Vol] 5.58 10*6/uL Normal 4.20-6.00 [facility] Comment on above: Order Comment: Speci men Type: BLOOD SPECIMEN Ordering Facility: [facility] Address: [address] [place], [place] [address] Performed By: #### 5 8410-2 #### [facility] CLIA [id number] [address] [place] [address] [place] WBC (Bld) [#/Vol] 6.16 10*3/uL Normal 3.70-11.00 [facility] Comment on above: Order Comment: Speci men Type: BLOOD SPECIMEN Ordering Facility: [facility] Address: [address] [place], [place] [address] Performed By: #### 5 8410-2 #### [facility] CLIA [id number] [address] [place] [address] [place] CK SerPl-cCncon 05-09-2023 CK [Catalytic activity/Vol] 133 U/L Normal 51-298 [facility] Comment on above: Order Comment: Speci men Type: BLOOD SPECIMEN Ordering Facility: [facility] Address: [address] [place], [place] [address] Performed By: #### 2 157-6, 01780-5, 18573-4, 2132-06 #### [facility] CLIA [id number] [address] [place] [address] [place] Comprehensive metabolic 2000 panelon 05-09-2023 Albumin [Mass/Vol] 4.3 g/dL Normal 3.9-4.9 [facility] Comment on above: Order Comment: Speci men Type: BLOOD SPECIMEN Ordering Facility: [facility] Address: [address] Performed By: #### 2 157-6, 21879-3, 98316-6, 2132-06 #### [facility] CLIA [id number] [address] [place] [address] [place] ALP [Catalytic activity/Vol] 74 U/L Normal 38-113 [facility] Comment on above: Order Comment: Speci men Type: BLOOD SPECIMEN Ordering Facility: [facility] Address: [address] [place] [address] Performed By: #### 2 157-6, 76863-0, 02865-1, 2132-06 #### [facility] CLIA [id number] [address] [place] [address] [place] ALT [Catalytic activity/Vol] 31 U/L Normal 10-54 [facility] Comment on above: Order Comment: Speci men Type: BLOOD SPECIMEN Ordering Facility: [facility] Address: [address] Performed By: #### 2 157-6, 96215-7, 95699-1, 2132-06 #### [facility] CLIA [id number] [address] [place] [address] [place] Anion gap [Moles/Vol] 11 mmol/L Normal 9-18 [facility] Comment on above: Order Comment: Speci men Type: BLOOD SPECIMEN Ordering Facility: [facility] Address: [address] [place] [address] Performed By: #### 2 157-6, 17286-8, 40630-4, 2132-06 #### [facility] CLIA [id number] [address] [place] [address] [place] AST [Catalytic activity/Vol] 29 U/L Normal 14-40 [facility] Comment on above: Order Comment: Speci men Type: BLOOD SPECIMEN Ordering Facility: [facility] Address: [address] [place] [address] Performed By: #### 2 157-6, 64167-0, 81830-2, 2132-06 #### [facility] CLIA [id number] [address] [place] [address] [place] Bilirubin [Mass/Vol] 0.4 mg/dL Normal 0.2-1.3 [facility] Comment on above: Order Comment: Speci men Type: BLOOD SPECIMEN Ordering Facility: [facility] Address: [address] [place] [address] Performed By: #### 2 157-6, 39802-7, 07615-2, 2132-06 #### [facility] CLIA [id number] [address] [place] [address] [place] Calcium [Mass/Vol] 9.3 mg/dL Normal 8.5-10.2 [facility] Comment on above: Order Comment: Speci men Type: BLOOD SPECIMEN Ordering Facility: [facility] Address: [address] [place], [place] [address] Performed By: #### 2 157-6, 32145-2, 39773-5, 2132-06 #### [facility] CLIA [id number] [address] [place] [address] [place] Chloride [Moles/Vol] 102 mmol/L Normal 97-105 [facility] Comment on above: Order Comment: Speci men Type: BLOOD SPECIMEN Ordering Facility: [facility] Address: [address] [place], [place] [address] Performed By: #### 2 157-6, 76710-1, , 2132-06 #### [facility] CLIA [id number] [address] [place] [address] [place] CO2 [Moles/Vol] 25 mmol/L Normal 22-30 [facility] Comment on above: Order Comment: Speci men Type: BLOOD SPECIMEN Ordering Facility: [facility] Address: [address] [place] [address] Performed By: #### 2 157-6, 53474-0, , 2132-06 #### [facility] CLIA [id number] [address] [place] [address] [place] Creatinine [Mass/Vol] 0.84 mg/dL Normal 0.73-1.22 [facility] Comment on above: Order Comment: Speci men Type: BLOOD SPECIMEN Ordering Facility: [facility] Address: [address] [place] [address] Performed By: #### 2 157-6, 06358-3, , 2132-06 #### [facility] CLIA [id number] [address] [place] [address] [place] ESTIMATED GLOMERULAR FILTRATION RATE 107 mL/min/1.73m??? Normal >=60 [facility] Comment on above: Order Comment: Speci men Type: BLOOD SPECIMEN Ordering Facility: [facility] Address: [address] [place] [address] Result Comment: Anjelica mated Glomerular Filtration Rate (eGFR) is calculated using the 2020 CKD-EPI creatinine equation. This equation utilizes serum creatinine, sex, and age as parameters. The creatinine assay has traceable calibration to isotope dilution-mass spectrometry. Refer to KDIGO guidelines for clinical interpretation. In patients with unstable renal function, e.g. those with acute kidney injury, the eGFR may not accurately reflect actual GFR. Performed By: #### 2 157-6, 04164-8, , 2132-06 #### [facility] CLIA [id number] [address] [place] [id number] [place] Glucose [Mass/Vol] 145 mg/dL High 74-99 [facility] Comment on above: Order Comment: Carmen motta Type: BLOOD SPECIMEN Ordering Facility: [facility] Address: [address] [place], [place] [phone] Result Comment: The Stateless Diabetes Association (ADA) provides guidance for cutoff values for fasting glucose and random glucose. The ADA defines fasting as no caloric intake for at least 8 hours. Fasting plasma glucose results between 100 to 125 mg/dL indicate increased risk for diabetes (prediabetes). Fasting plasma glucose results greater than or equal to 126 mg/dL meet the criteria for diagnosis of diabetes. In the absence of unequivocal hyperglycemia, results should be confirmed by repeat testing. In a patient with classic symptoms of hyperglycemia or hyperglycemic crisis, random plasma glucose results greater than or equal to 200 mg/dL meet the criteria for diagnosis of diabetes. Reference: Standards of Medical Care in Diabetes 2016, Stateless Diabetes Association. Diabetes Care. 2016.39(Suppl 1). Performed By: #### 2 157-6, 66821-9, , 2132-06 #### [facility] CLIA [id number] [address] [place] [address] [place] Potassium [Moles/Vol] 4.1 mmol/L Normal 3.7-5.1 [facility] Comment on above: Order Comment: Carmen motta Type: BLOOD SPECIMEN Ordering Facility: [facility] Address: [address] [place] [phone] Performed By: #### 2 157-6, 16150-7, , 2132-06 #### [facility] CLIA [id number] [address] [place] [address] [place] Protein [Mass/Vol] 6.3 g/dL Normal 6.3-8.0 [facility] Comment on above: Order Comment: Carmen motta Type: BLOOD SPECIMEN Ordering Facility: [facility] Address: [address] [place], [place] [phone] Performed By: #### 2 157-6, 86660-2, 19116-0, 2132-06 #### [facility] CLIA [id number] [address] [place] [address] [place] Sodium [Moles/Vol] 138 mmol/L Normal 136-144 [facility] Comment on above: Order Comment: Speci men Type: BLOOD SPECIMEN Ordering Facility: [facility] Address: [address] [place] [address] Performed By: #### 2 157-6, 79143-4, 64855-2, 2132-06 #### [facility] CLIA [id number] [address] [place] [address] [place] Urea nitrogen [Mass/Vol] 13 mg/dL Normal 9-24 [facility] Comment on above: Order Comment: Speci men Type: BLOOD SPECIMEN Ordering Facility: [facility] Address: [address] Performed By: #### 2 157-6, 01369-4, 76849-7, 2132-06 #### [facility] CLIA [id number] [address] [place] [address] [place] Magnesium SerPl-mCncon 05-09 Magnesium [Mass/Vol] 2.0 mg/dL Normal 1.7-2.3 [facility] Comment on above: Order Comment: Speci men Type: BLOOD SPECIMEN Ordering Facility: [facility] Address: [address] Performed By: #### 2 157-6, 35658-1, 74154-2, 2132-06 #### [facility] CLIA [id number] [address] [place] [address] [place] Vit B12 SerPl-mCncon 023 Cobalamin (Vitamin B12) [Mass/Vol] 722 pg/mL Normal 232-1245 [facility] Comment on above: Order Comment: Speci men Type: BLOOD SPECIMEN Ordering Facility: [facility] Address: [address] [place] [address] Performed By: #### 2 157-6, 67758-9, 41963-8, 2132-9 #### [facility] CLIA [id number] [address] [facility] [id number] [place] [address] [facility] CNPCynthia 04-20-2023 CNPN Telephone (GASTMN) ABBEY JORDAN ([id number]) 1975 M Date Time Provider Department 04/20/23 KURT STARK GASTWI During your visit today, we recorded the following information about you: Elmer Nix LPN 04/20/2023 2:45 PM Signed [place] submission via [facility] esomeprazole (NEXIUM) 40 mg capsule 180 capsule 3 04/16/2023 Sig: Take 1 capsule by mouth twice daily before meals. Take 30 min before breakfast and dinner De Los Santos: [id number] - JONATHAN - Rx #: [id number] Elmer Nix LPN 04/25/2023 11:58 AM Signed CaseId:[id number]; Status:Approved; Review Type:Prior Auth; Coverage Start Date:03/21/2023; Coverage End Date:04/19/2024; Allergies As of Date: 04/20/2023 (No Known Allergies) Date Reviewed: 04/12/2021 Reviewed by: Celia Mckeon RN - Fully Assessed Reason for Visit: Insurance Authorization [[id number]] Cmt: Esomeprazole 40 mg BID Prescriptions as of 04/25/2023 - esomeprazole (NEXIUM) 40 mg capsule Take 1 capsule by mouth twice daily before meals. Take 30 min before breakfast and dinner - amitriptyline (ELAVIL) 10 mg tablet Take 3 tablets by mouth daily at bedtime. - esomeprazole (NEXIUM) 40 mg capsule Take 1 capsule by mouth twice daily before meals. - amitriptyline (ELAVIL) 10 mg tablet Take 3 tablets by mouth daily at bedtime. - alfuzosin SR (UROXATRAL) 10 mg 24 hr tablet Take 10 mg by mouth once daily. - ciprofloxacin HCl (CIPRO) 500 mg tablet Take 500 mg by mouth twice daily. - AVOCADO OIL, BULK, MISC 0.5 mg. - cholestyramine low-calorie (PREVALITE) 4 gram packet Take 4 g by mouth twice daily. - dutasteride (AVODART) 0.5 mg capsule Take 0.5 mg by mouth once daily. Problem List As Of Date: 04/20/2023 (None) Encounter Status:Closed by ELMER SOLIS on 04/20/23 [facility] No Panel InformationOrdered By: ROSENDO Kwong on 01-18-2023 Prostate Specific Antigen Screen 0.19 ng/mL 0.00-4.00 [facility] Comment on above: This test was perfor med using the TPSA assay method for the[facility] chemistry system. Values obtained with differentassay methods cannot be used interchangably.When changing PSA assays in the course of monitoring apatient, additional sequential testing should be carriedout to confirm baseline values. Basophil percentageon 2021 Bilirubin [Mass/Vol] 0.50 mg/dL 0.20-1.00 [facility] Work Phone: Comment on above: For patients on eltr ombopag therapy, use of Dimension [place] TBIL is not recommended. Chloride [Moles/Vol] 106 mmol/L 98-107 [facility] Work Phone: Cholesterol [Mass/Vol] 211 mg/dL <200 [facility] Work Phone: Comment on above: <200 mg/dL Desirable 200-240 mg/dL Borderline >240 mg/dL High Risk Glucose [Mass/Vol] 104 mg/dL 74-106 [facility] Work Phone: Comment on above: Fasting Glucose resu lt from 100 to 125 mg/dL suggests IMPAIRED HOMEOSTASIS per A.D.A. criteria. Potassium [Moles/Vol] 3.8 mmol/L 3.5-5.1 [facility] Work Phone: Protein [Mass/Vol] 6.9 g/dL 6.4-8.2 [facility] Work Phone: Sodium [Moles/Vol] 140 mmol/L 136-145 [facility] Work Phone: Triglyceride [Mass/Vol] 238 mg/dL <199 [facility] Work Phone: Comment on above: The drugs N-Acetylcy steine and Metamizole may falsely depress this assay.Serum Triglycerides Reference Interval Normal <150 mg/dL Borderline high 150 - 199 mg/dL High 200 - 499 mg/dL Very High > or = 500 mg/dL Laboratory - Chemistry and C hemistry - challengeon 09-13-2022 ALP [Catalytic activity/Vol] 74 U/L 45-117 [facility] Work Phone: ALT [Catalytic activity/Vol] 49 U/L 16-61 [facility] Work Phone: CO2 [Moles/Vol] 26.0 mmol/L 21.0-32.0 [facility] Work Phone: Globulin (S) [Mass/Vol] 3.0 g/dL 2.2-4.2 [facility] Work Phone: Urea nitrogen/Creatinine [Mass ratio] 17.3 mg/mg 10-20 [facility] Work Phone: No Panel Informationon 09-13 Estimated GFR (MDRD) Amer 130 mL/min >60 [facility] Work Phone: Comment on above: GFR Calc Estimated GFR (MDRD) Non-Af Amer 108 mL/min >60 [facility] Work Phone: Comment on above: Non- GFR Calc Serum or plasma albumin komal urement (mass/volume)on 09-13-2022 Albumin [Mass/Vol] 3.9 g/dL 3.2-5.0 [facility] Work Phone: Serum or plasma albumin/glob ulin mass ratioon 09-13-2022 Albumin/Globulin [Mass ratio] 1.3 {ratio} 0.9-2.4 [facility] Work Phone: Serum or plasma calcium komal urement (mass/volume)on 09-13-2022 Calcium [Mass/Vol] 8.8 mg/dL 8.5-10.1 [facility] Work Phone: Serum or plasma cholesterol in HDL measurement (mass/volume)on 09-13-2022 Cholesterol in HDL [Mass/Vol] 31 mg/dL >40 [facility] Work Phone: Comment on above: The drugs N-Acetylcy steine and Metamizole may falsely depress this assay. Reference Range HDL <40 mg/dL Low HDL Cholesterol HDL >or= 60 mg/dL High HDL Cholesterol Serum or plasma cholesterol in VLDL measurement (mass/volume)on 09-13-2022 Cholesterol in VLDL [Mass/Vol] 48 mg/dL 5-40 [facility] Work Phone: Serum or plasma creatinine m easurement (mass/volume)on 09-13-2022 Creatinine [Mass/Vol] 0.81 mg/dL 0.70-1.30 [facility] Work Phone: Comment on above: The validity of the calculated GFR & GFRAA in patients over 70 years has not been determined. Clinical correlation is essential. Serum or plasma low density lipoprotein (LDL) cholesterol measurement (mass/volume)on 09-13-2022 Cholesterol in LDL [Mass/Vol] 132 mg/dL 0-130 [facility] Work Phone: Serum or plasma urea nitroge n measurement (mass/volume)on 09-13-2022 Urea nitrogen [Mass/Vol] 14 mg/dL 7-18 [facility] Work Phone: Thin prep Papanicolaou smear with manual screeningon 09-13-2022 Thin prep Papanicolaou smear with manual screening 27 U/L 15-37 [facility] Work Phone: Thin prep Papanicolaou smear with manual screening 8 5-15 [facility] Work Phone: No Panel Informationon 01-16 Prostate Specific Antigen Screen 0.10 ng/mL 0.00-4.00 [facility] Work Phone: Comment on above: This test was perfor med using the TPSA assay method for [employer] chemistry system. Values obtained with differentassay methods cannot be used interchangably.When changing PSA assays in the course of monitoring apatient, additional sequential testing should be carriedout to confirm baseline values. Encounters Encounter Date Encounter Type Care Provider Facility Start: 09-30-2024 End: 09-30-2024 ambulatory Andrew Brewer Facility:[facility] Start: 08-13-2024 ambulatory Yanira Roche Facility:[facility] Start: 05-06-2024 End: 05-06-2024 ambulatory Haley Langstoning Facility:[facility] Start: 11-26-2023 End: 11-26-2023 ambulatory Aleksandra S Jolliff Facility:[facility] Start: 11-19-2023 End: 11-19-2023 ambulatory Aleksandra S Jolliff Facility:[facility] Start: 11-13-2023 ambulatory [facility] Facility :[facility] Start: 11-13-2023 End: 11-13-2023 [facility] Start: 05-09-2023 End: 05-10-2023 ambulatory ALEKSANDRA CAMERON JOLLIFF Facility:[facility] Start: 04-20-2023 Telephone encounter Kurt fisher MD Work Phone: Gastroenterology Comment on above: Insurance Authorizat ion (Esomeprazole 40 mg BID) Start: 04-16-2023 End: 04-16-2023 ambulatory ALEKSANDRA CAMERON JOLLIFF Facility:[facility] Start: 04-16-2023 End: 04-16-2023 ambulatory Kurt Stark MD Work Phone: Gastroenterology Comment on above: Esophageal dysphagia (Primary Dx); Colon cancer screening; Aperistalsis of esophagus Start: 04-16-2023 End: 04-16-2023 Telemedicine consultation with patient Kurt Stark MD Work Phone: [facility] Start: 02-14-2023 Refill Kurt carranza MD Work Phone: Gastroenterology Comment on above: Refill Request Start: 02-11-2023 Refill Evonne Infante MD Work Phone: Gastroenterology Comment on above: Refill Request Start: 01-18-2023 End: 01-18-2023 ambulatory [facility] Work Phone: Start: 01-18-2023 End: 01-18-2023 Patient encounter procedure [facility] Start: 09-13-2022 End: 09-13-2022 ambulatory [facility] Work Phone: Start: 09-13-2022 End: 09-13-2022 Patient encounter procedure [facility], [facility] Start: 04-15-2022 Refill Kurt carranza MD Work Phone: Gastroenterology Comment on above: Refill Request Start: 01-16-2022 End: 01-16-2022 Patient encounter procedure [facility] Procedures Date Procedure Procedure Detail Performing Clinician 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 tunnel release Plan of Treatment Date Care Activity Detail Author Start: 06-22-2023 Influenza vaccination INFLUENZ A (Season Ended) [facility] Start: 04-16-2023 End: 06-16-2023 FRANKY BY IFA WITH REFLEX FRANKY BY IFA WITH REFLEX Lab Routine Aperistalsis of esophagus Expected: 04/16/2023, Expires: 06/16/2023 [facility] Work Phone: Comment on above: Expected: 04/16/2023 , Expires: 06/16/2023 Start: 04-16-2023 End: 06-16-2023 CBC panel - Blood by Automated count CBC Lab Routine Aperistalsis of esophagus Expected: 04/16/2023, Expires: 06/16/2023 [facility] Work Phone: Comment on above: Expected: 04/16/2023 , Expires: 06/16/2023 Start: 04-16-2023 End: 06-16-2023 Cobalamin (Vitamin B12) [Mass/volume] in Serum or Plasma VITAMIN B12 BLOOD Lab Routine Aperistalsis of esophagus Expected: 04/16/2023, Expires: 06/16/2023 [facility] Work Phone: Comment on above: Expected: 04/16/2023 , Expires: 06/16/2023 Start: 04-16-2023 End: 06-16-2023 Comprehensive metabolic 2000 panel - Serum or Plasma COMP METABOLIC PANEL Lab Routine Aperistalsis of esophagus Expected: 04/16/2023, Expires: 06/16/2023 [facility] Work Phone: Comment on above: Expected: 04/16/2023 , Expires: 06/16/2023 Start: 04-16-2023 End: 06-16-2023 Creatine kinase [Enzymatic activity/volume] in Serum or Plasma CK CREATINE KINASE Lab Routine Aperistalsis of esophagus Expected: 04/16/2023, Expires: 06/16/2023 [facility] Work Phone: Comment on above: Expected: 04/16/2023 , Expires: 06/16/2023 Start: 04-16-2023 End: 06-16-2023 Magnesium [Mass/volume] in Serum or Plasma MAGNESIUM BLD Lab Routine Aperistalsis of esophagus Expected: 04/16/2023, Expires: 06/16/2023 [facility] Work Phone: Comment on above: Expected: 04/16/2023 , Expires: 06/16/2023 Start: 10-22-2022 DEPRESSION ASSESSMENT DEPRESSION ASS ESSMENT [facility] Start: 06-22-2022 Influenza vaccination INFLUENZ A (Season Ended) [facility] Start: 11-08-2021 COVID-19 VACCINE (2 - Booster for Moderna series) COVID-19 VACCINE (2 - Booster for Moderna series) [facility] Start: 04-14-2021 COVID-19 VACCINE (2 - Moderna series) COVID-19 VACCINE (2 - Moderna series) [facility] Start: 2019 COLOGUARD (FIT-DNA) COLOGUARD (FIT-D NA) [facility] Start: 2019 Colonoscopy COLONOSCOPY [facility] Start: 2019 COLORECTAL CANCER SCREENING COLORECTAL CANCER SCREENING [facility] Start: [address] COLONOGRAPHY [facility] Start: 2019 DIABETES SCREEN DIABETES SCREEN [facility] Start: 2019 FECAL OCCULT BLOOD FECAL OCCULT BLOO D [facility] Start: 2019 SIGMOIDOSCOPY SIGMOIDOSCOPY [facility] Start: 2009 LIPID SCREEN LIPID SCREEN [facility] Start: 1993 Urine microalbumin profile DTAP,TDAP,TD (1 - Tdap) [facility] Start: 1992 HEPATITIS C SCREENING HEPATITIS C SC REENING [facility] Start: 1992 HIV SCREENING HIV SCREENING [facility] Start: 1986 Adult depression screening assessment DEPRESSION SCREENING [facility] Start: 1974 HEPATITIS B (1 of 3 - 3-dose series) HEPATITIS B (1 of 3 - 3-dose series) [facility] End: 04-16-2024 Screening colonoscopy COLONOSCOPY SCREENING Endoscopy Routine Colon cancer screening 1 Occurrences starting 04/16/2023 until 04/16/2024 [facility] Work Phone: Comment on above: 1 Occurrences starti ng 04/16/2023 until 04/16/2024 [facility] c Immunizations Immunization Date Immunization Notes Care Provider Fa cilirubens 03-17-2021 COVID-19 vaccine, fu ll dose (MODERNA) Kurt Stark MD Work Phone: [facility] Payers Date Payer Category Payer Self-pay [id number] 2020 Unknown REFERENCE BASED PA[employer]ER [employer] [id number] 2020-Present Other [id number] 2020 Unknown [id number] 2017 Unknown [id number] 2017 Unknown MMO MMO [employer] [id number] 2017-Present [phone] [address] [place] [address] PPO [id number] 2015 Unknown [id number] Unknown [id number] Unknown [id number] Unknown [id number] Unknown [id number] Unknown [id number] Unknown [id number] Unknown [id number] Unknown [id number] Social History Date Type Detail Facility Start: 04-04-2018 End: 04-04-2018 Tobacco smoking status ARIS Unknown if ever smoked [facility] Start: 1975 Sex Assigned At Male [facility] Start: 04-12-2021 Tobacco smoking stat us ARIS Ex-smoker [facility] History of tobacco use Cigarette Smoker [facility] Start: 04-12-2021 Tobacco use and exposure Smokeless tobacco non-user [facility] Start: 04-12-2021 Alcohol intake Current drinke r of alcohol (finding) [facility] Start: 04-12-2021 History SDOH Alcohol Comment social [facility] Start: 04-12-2021 Tobacco Comment quit in 2000 [facility] History of tobacco use Current smoker [facility] Medical Equipment Procedure Code Equipment Code Equipment Origin al Text Equipment Identifier Dates YENIFER GOLDMAN FDA Start: 03-21-2018 YENIFER GOLDMAN FDA Start: 03-21-2018 YENIFER GOLDMAN FDA Start: 03-21-2018 YENIFER GOLDMNA FDA Start: 03-21-2018 YENIFER GOLDMAN FDA Start: 03-21-2018 YENIFER GOLDMAN FDA Start: 03-21-2018 Clinical Notes 02-12-2023 to 09-30-2024 Telephone Encounter - Elmer Solis LPN - 04/20/2023 2:43 PM EDTPatient Jean Stark MD - 04/16/2023 3:33 PM EDTTelephone Encounter - Arlene Nguyen - 02/14/2023 8:27 AM EDT Note Date & Type Note Facility 09-30-2024 Note [facility] Medical Records Department [address] [place] [id number] History Physical Exam 09/30/24 0640 MR#: [id number] Acct: [id number] Name: ABBEY JORDAN Rep #: [id number] : 1975 49 From: [facility] PCP: Dr. Aleksandra De La Cruz MD Status:[facility] Location: [place] [address] HPI - General General Date of Admission: 09/30/24 Date of Service: 09/30/24 Chief Complaint: Screening colonoscopy HPI Narrative ABBEY JORDAN, is a 49 M who presents today for screening colonoscopy. He has a past medical history of cholecystitis, gastroesophageal reflux disease. He only takes esomeprazole on a daily basis and some finasteride for BPH. He is in fairly good health. He has never had a colonoscopy in the past. [facility] Medical History (Updated 09/25/24 @ 09:17 by Farnaz Mason) Esophageal motility disorder Irritable bowel syndrome, unspecified Benign prostatic hyperplasia with incomplete bladder emptying Alcohol use Kidney stones Back pain Gastric reflux Former smoker Gallbladder problem Acid reflux Diarrhea Abdominal pain Home Medications ???Medication ???Instructions ???Recorded ???Last Taken ???Type alfuzosin 10 mg tablet,extended 10 mg PO QDAY 04/04/18 09/29/24 History release 24 hr (Uroxatral) multivitamin 1 tab PO DAILY 08/13/23 09/29/24 History amitriptyline 10 mg tablet 30 mg PO QHS 11/02/23 09/29/24 History esomeprazole magnesium 40 mg 40 mg PO BID 11/02/23 09/30/24 03:30 History capsule,delayed release (Nexium) saw palmetto 450 mg capsule 450 mg PO DAILY 11/02/23 09/29/24 History ciprofloxacin HCl 250 mg tablet 250 mg PO BID 08/13/24 09/29/24 History (Cipro) finasteride 5 mg tablet 5 mg PO QHS 08/13/24 09/29/24 History Allergy/AdvReac Type Severity Reaction Status Date / Time adhesive tape Allergy Severe Rash Verified 09/30/24 06:11 iodine Allergy Severe Rash Verified 09/30/24 06:11 povidone-iodine (From Allergy Severe Rash Verified 09/30/24 06:11 Betadine) Family History Father Hypertension High cholesterol Cancer Skin cancer Mother Cancer Skin cancer Surgical History (Updated 09/25/24 @ 09:17 by Farnaz Mason) History of carpal tunnel surgery of left wrist Hx of vasectomy History of esophagogastroduodenoscopy (EGD) History of laparoscopic cholecystectomy S/P carpal tunnel release S/P Achilles tendon repair Social History (Updated 08/13/24 @ 08:51 by Yanira Roche) household members: spouse current occupational status: employed current occupation: [employer] Smoking Status: Former smoker second hand exposure: No alcohol intake: current alcohol intake frequency: holidays/special occasions only substance use type: does not use caffeine: No what type of physical activity do you participate in: walking frequency: 1-2 times per week seatbelt use: always ROS Review of Systems ROS Unobtainable: other Constitutional Constitutional: Denies fatigue, fever(s), poor appetite, weight gain or weight loss ENT HEENT: Denies mouth lesions Cardiovascular Cardiovascular: Denies abdominal bloating, abdominal edema or abdominal pain Respiratory/Chest Respiratory/Chest: Denies change in mental status, change in phlegm color, chest congestion or chest tightness Gastrointestinal Gastrointestinal: Denies belching, bloating, change in bowel habits, change in stool character, chewing difficulty, coffee ground emesis, constipation, cramping, diarrhea, dyspepsia, dysphagia, ea rly satiety, excessive flatus, fecal incontinence, heartburn, hematemesis, hematochezia, hemorrhoids, loose stools, melena, nausea, odynophagia, rectal bleeding, tenesmus, vomiting or weight changes Genitourinary Genitourinary: Denies abdominal discomfort, burning urination or itching Musculoskeletal Musculoskeletal: Reports as per HPI; Denies muscle weakness or myalgias Integumentary Integumentary: Denies jaundice Neurologic Neurologic: Denies lack of coordination or weakness Psychiatric Psychiatric: Denies confusion, depression, memory loss, mood swings, paranoia or suicidal ideation Endocrine Endocrinology: Denies systems reviewed and no addt'l complaints, except as documented Hematologic/Lymphatic Hematologic/Lymphatic: Denies anemia, easy bleeding, easy bruising or lymphadenopathy Allergic/Immunologic Allergic/Immunologic: Denies systems reviewed and no addt'l complaints, except as documented Vital Signs Vital Signs Vital Signs: 09/30/24 06:13 09/30/24 06:14 Temperature 98.9 F Temperature Source Temporal Pulse Rate 113 H Respiratory Rate 18 Respiratory Pattern Normal Blood Pressure 136/85 H Blood Pressure Mean 102 Blood Pressure Source Monitor Blood Pressure Position Semi-Fowlers Blood Pressure Location Left (more content not included)... [facility] 11-13-2023 Note [facility] Medical Records Department [address] [place] [address] History Physical Exam 11/13/23 1102 MR#: [id number] Acct: [id number] Name: ABBEY JORDAN Rep #: [id number] : 1975 48 From: Carmelo Garsia DO PCP: Dr. Aleksandra De La Cruz MD Status:[facility] Location: [place] [address] History and Physical [facility] [address] [place] [address] [address] [place] [address] OFFICE VISIT Date of Service: 08/13/23 MR#: [id number] Acct: [id number] Name: ABBEY JORDAN Rep #: [id number] : 1975 Provider: Dr. Carmelo Garsia DO Age/Sex: 48/M Location: [facility] Status: Signed Intake Vital Signs 08/13/2308:27 Height 5 ft 11 in Weight: 200 lb BMI 27.8 Intake Visit Reasons: LEFT HAND Chief Complaint: left hand Accompanied by: Self Is patient in pain?: No Allergies No Known Allergies Allergy (Verified 04/04/18 08:59) Medications ciprofloxacin HCl 250 mg tablet (Cipro) 250 mg PO BID 02/05/18 [History Confirmed 08/13/23] dexlansoprazole 60 mg capsule,biphase delayed release (Dexilant) 60 mg PO QDAY 02/05/18 [History Confirmed 08/13/23] dutasteride 0.5 mg capsule (Avodart) 0.5 mg PO QDAY 02/05/18 [History Confirmed 08/13/23] alfuzosin 10 mg tablet,extended release 24 hr (Uroxatral) 10 mg PO QDAY 04/04/18 [History Confirmed 08/13/23] celecoxib 100 mg capsule (Celebrex) 100 mg PO BID #60 caps 08/13/23 [Rx Confirmed 08/13/23] multivitamin 1 tab PO DAILY 08/13/23 [History Confirmed 08/13/23] PFSH Medical History (Updated 08/13/23 @ 09:[address] Carmelo Garsia DO) Abdominal pain Acid reflux Diarrhea Gallbladder problem Surgical History Hx of hernia repair S/P Achilles tendon repair S/P carpal tunnel release Family History Father Hypertension High cholesterol Cancer Skin cancerMother Cancer Skin cancer Social History Smoking Status: Former smoker second hand exposure: No alcohol intake: current alcohol intake frequency: holidays/special occasions only substance use type: does not use caffeine: No what type of physical activity do you participate in: walking frequency: 1-2 times per week seatbelt use: always HPI LEFT HAND Details: Parts of this documentation were recorded by a scribe, this documentation accurately reflects the service provided and the decisions made by me, Dr. Carmelo Garsia, DO 08/13/23 1820. ABBEY JORDAN is a 48 year old M NEW patient here today for left hand numbness that he has had for a number of years but has became worse over the last 2 years. He states that he has numbness into all of his fingers and states that he occasionally has numbness that radiates to the elbow. He states that during the day when he is doing anything with his hands he has numbness of all the fingers and then at night he will have numbness from the elbow into the hand and all his fingers. He states that with driving and riding a bicycle he has worsening symptoms/numbness. He has tried night bracing for about 2 weeks which wasn't helpful. He did have a new EMG on 07/25/23 at [facility]. Denies any hx of trama to the left arm. Denies any hx of past surgery or injections of the left hand. He has occasionally tried Advil/Tylenol but not consistently. Denies any neck pain. Of note patient states he had the exact same symptoms in his right hand that were relieved with a carpal tunnel release. Ortho Exam General General: Yes no acute distress Neurologic: Yes alert and Yes oriented x3 Psychologic: Yes reasonable and appropriate Right Wrist/Hand Skin/Wound: No Swelling and No Ecchymosis Left Wrist/Hand Skin/Wound: No Swelling, No Ecchymosis, Yes nail intact and Yes capillary refill normal Left Wrist: Yes Durken's Test and Yes Phalen's; No Tinel's, No Thenar Atrophy and No Hypothenar Atrophy WRIST: phalens and durkens into ulnar 2 digits and some into the index and middle intact sensation to light touch. Head: Normocephalic Atraumatic Chest: symmetrical rise, non-labored breathing, no audible wheeze Abdomen: no guarding, non-rigid Supplemental Info 07/25/2023 EMG left upper extremity: Mild left carpal tunnel syndrome Coding Level of Care Code Off vis,new,level 3 Diagnoses Left carpal tunnel syndrome G56.02 Assessment and Plan Assessment and Plan (1) Left carpal tunnel syndrome: Status: Acute Medications: New celecoxib (Celebrex) 100 mg PO BID 60 caps 1RF Plan Patient educated that he knox (more content not included)... [facility] 04-20-2023 Miscellaneous Notes PA submission via [facility] esomeprazole (NEXIUM) 40 mg capsule 180 capsule 3 04/16/2023 Sig: Take 1 capsule by mouth twice daily before meals. Take 30 min before breakfast and dinner De Los Santos: [id number] - PA - Rx #: [id number] documented in this encounter [facility] 04-16-2023 Note HNO ID: [id number] Author: Kurt Stark MD Service: ? Author Type: Physician Type: Progress Notes Filed: 04/16/2023 3:59 PM Note Text: VIRTUAL VISIT FOLLOW UP I have communicated my name and active licensure. The patient's identity and physical location were verified at the time of this visit. Either the patient or their legal players club representative has been informed of the risks and benefits of -- and alternatives to -- treatment through a remote evaluation and consents to proceed with the evaluation remotely. I had a virtual visit with Mr. Jordan today for follow up of GERD and aperistalsis. UPDATED HISTORY: --Things are pretty good --Over the past few years, has had less episodes of heartburn --Got a Tempurpedic bed last year, elevates his back - helps --Denies dysphagia --No side effects No past medical history on file. PAST SURGICAL HISTORY Procedure Laterality Date CHOLECYSTECTOMY HEEL surgery No family history on file. Social History Tobacco Use Smoking status: Former Types: Cigarettes Smokeless tobacco: Never Tobacco comments: quit in 2000 Substance Use Topics Alcohol use: Yes Comment: social Drug use: Never Current Outpatient Medications Medication Sig Dispense Refill esomeprazole (NEXIUM) 40 mg capsule Take 1 capsule by mouth twice daily before meals. 180 capsule 1 amitriptyline (ELAVIL) 10 mg tablet Take 3 tablets by mouth daily at bedtime. 270 tablet 1 alfuzosin SR (UROXATRAL) 10 mg 24 hr tablet Take 10 mg by mouth once daily. ciprofloxacin HCl (CIPRO) 500 mg tablet Take 500 mg by mouth twice daily. AVOCADO OIL, BULK, MISC 0.5 mg. cholestyramine low-calorie (PREVALITE) 4 gram packet Take 4 g by mouth twice daily. dutasteride (AVODART) 0.5 mg capsule Take 0.5 mg by mouth once daily. No current facility-administered medications for this visit. ALLERGIES No Known Allergies REVIEW OF SYSTEMS: PAIN ASSESSMENT: Negative for pain, history of chronic pain, or current treatment for a chronic pain condition. GENERAL: No weight loss, malaise or fevers RESPIRATORY: Negative for cough, hemoptysis, wheezing, COPD, dyspnea or shortness of breath CARDIOVASCULAR: Negative for chest pain, leg swelling, hypertension, CHF or palpitations GI: see above PHYSICAL FINDINGS OF NOTE: General - Normal, healthy, cooperative, in no acute distress Able to interact verbally by video conference Psych - ORIENTATION: normal to time place, person and situation Mood/Affect: AFFECT AND MOOD: Normal Head/Neuro - Normal size and shape Facial appearance normal Pulmonary - respiratory effort normal Cardiovascular - patient describes extremities normal, warm, no cyanosis,no clubbing, and no edema Abdominal - Not performed Skin - abnormal lesions not visualized Motor - patient seen sitting with Normal appearing strength and coordination REVIEWED ITEMS EGD 2020: The Z-line was regular and was found 41 cm from the incisors. The examined esophagus was normal. The entire examined stomach was normal. The examined duodenum was normal. Manometry 2020: LES: Low resting pressure, complete relaxation Body of the esophagus: --19 swallows failed --1 swallow with weak peristalsis in the distal esophagus (DCI 109, peristaltic wave in distal 4cm) MRS: DCI 104 Impressions Ineffective esophageal motility bodering on absent contractility, but there is one swallow with weak peristalsis and MRS with weak peristalsis Manometry 2019 Interpretation / Findings LES: Low resting pressure, complete relaxation Body of the esophagus: All swallows failed Impressions Absent contractility Kurt Stark MD PH Impedance on meds: Total Time spent in reflux (HH:MM) 00:12 Number of refluxes 63 Number of refluxes per hour 3.0 % Time spent in reflux 0.9 Number of long refluxes 0 Longest reflux (HH:MM) 00:01 Upright Time spent in reflux (HH:MM) 00:05 Number of refluxes 29 Number of refluxes per hour 2.1 % Time spent in reflux 0.7 Number of long refluxes 0 Longest reflux (HH:MM) 00:01 Supine Time spent in reflux (HH:MM) 00:06 Number of refluxes 34 Number of refluxes per hour 4.6 % Time spent in reflux 1.4 Number of long refluxes 0 Longest reflux (HH:MM) 00:01 Procedure Description Pt on medications Dexilant 60mg, Carafate 1gm and Zantac Interpretation / Findings Normal total acid exposure in both positions. SI shows no correlation to symptoms reported. Impression Pleasant 48M with esophageal aperistalsis, no clear etiology - testing for CTD negative. Symptoms under control with PPI BID and TCA Recommend: --Continue esomeprazole 40mg BID --Contine amitriptyline --Repeat FRANKY and CK --Screening colonoscopy. Given aperistalsis, will order low volume prep like Suprep Kurt Stark MD [facility] 04-16-2023 Instructions Kurt Stark MD - 04/16/2023 3:45 PM EDT Images from the original note were not included. Schedule colonoscopy. You can call [phone] to schedule 2. Labs at any [facility] lab 3. Continue esomeprazole and amitriptyline 4. Return to clinic in 1 year. You can call [phone] about 2 months prior to your expected visit Bowel Preparation Instructions for: Suprep IF YOU DO NOT FOLLOW THESE DIRECTIONS, YOUR COLONOSCOPY WILL BE CANCELLED. [place] Instructions: Your bowel must be empty so that your doctor can clearly view your colon. Follow all of the instructions in this handout EXACTLY as they are written. Do NOT eat any solid food the ENTIRE day before your colonoscopy. DRINK ONLY CLEAR LIQUIDS Buy your bowel preparation at least 5 days before your colonoscopy. TRANSPORTATION on the Day of Your Exam A responsible adult MUST be present with you at Check In prior to your colonoscopy and REMAIN in the endoscopy area until you are discharged. You are NOT ALLOWED to drive, take a taxi or bus, or leave the Endoscopy Center ALONE. If you do not have a responsible crude oil driver (family member or friend) with you to take you home, your exam cannot be done with sedation and will be cancelled. Please bring a list of all of your current medications, including any [id number] medications with you. Medications If you take insulin, diabetic medications or blood thinners such as Coumadin (warfarin), Plavix (clopidogrel), Ticlid (ticlopidine hydrochloride), Agrylin (anagrelide), Xarelto (Rivaroxaban), Pradaxa (Dabigatran), Eliquis (Apixaban), and Effient (Prasugrel). You MUST call the doctors who orders those medicines for instructions on altering the dosage before your colonoscopy. All other medications should be taken the day of the exam with a sip of water including ASPIRIN. Five (5) Days Before Your Colonoscopy Do NOT take medicines that stop diarrhea - such as Imodium, Kaopectate, or Pepto Bismol. Do NOT take fiber supplements - such as Metamucil, Citrucel, or Perdiem. Do NOT take products that contain iron - such as multi-vitamins (the label lists what is in the products). Three (3) Days Before Your Colonoscopy Do NOT eat high-fiber foods - such as popcorn, beans, seeds (flax, sunflower, quinoa), multigrain bread, nuts, salad/vegetables, or fresh and dried fruit. 09/2019 Bowel Preparation Instructions for: Suprep One (1) Day Before Your Colonoscopy Only drink clear liquids the ENTIRE DAY before your colonoscopy. Do NOT eat any solid foods. Drink at least 8 ounces of clear liquids every hour after waking up. The clear liquids you can drink include: Clear Liquid (NO RED LIQUIDS) DO NOT DRINK Gatorade, Pedialyte or Powerade Clear broth or bouillon Coffee or tea (no milk or non-dairy creamer) Carbonated and non-carbonated soft drinks Singh-Aid or other fruit flavored drinks Strained fruit juices (no pulp) Jell-O, popsicles, hard candy Water Alcohol Milk or non-dairy creamers Noodles or vegetables in soup Juice with pulp Liquid you cannot see through Do not use tobacco/vaping products The bowel preparation solution will be consumed in two parts. Do NOT add ice, sugar or any flavorings to the solution. Part 1 6 PM - Evening before your colonoscopy Pour ONE (1) 6 oz. bottle of SUPREP liquid into the mixing container. Add cool water to the 16 oz. line on the container and mix. Drink ALL the liquid in the container. Drink two (2) more 16 oz. water over the next 1 (one) hour. You may continue to drink clear liquids until midnight. Part 2 4 hours before your colonoscopy Pour ONE (1) 6 oz. bottle of SUPREP liquid into the mixing container. Add cool water to the 16 oz. line on the container and mix. Drink ALL the liquid in the container. You must drink two (2) more 16 oz. glasses of water over the next one (1) hour. You may continue drinking clear liquids up to three (3) hours before your procedure. 2 09/2019 documented in this encounter [facility] 04-16-2023 History of Present illness Narrative VIRTUAL VISIT FOLLOW UP I have communicated my name and active licensure. The patient's identity and physical location were verified at the time of this visit. Either the patient or their legal players club representative has been informed of the risks and benefits of -- and alternatives to -- treatment through a remote evaluation and consents to proceed with the evaluation remotely. I had a virtual visit with Mr. Jordan today for follow up of GERD and aperistalsis. UPDATED HISTORY: --Things are pretty good --Over the past few years, has had less episodes of heartburn --Got a Tempurpedic bed last year, elevates his back - helps --Denies dysphagia --No side effects No past medical history on file. PAST SURGICAL HISTORY Procedure Laterality Date CHOLECYSTECTOMY HEEL surgery No family history on file. Social History Tobacco Use Smoking status: Former Types: Cigarettes Smokeless tobacco: Never Tobacco comments: quit in 2000 Substance Use Topics Alcohol use: Yes Comment: social Drug use: Never Current Outpatient Medications Medication Sig Dispense Refill esomeprazole (NEXIUM) 40 mg capsule Take 1 capsule by mouth twice daily before meals. 180 capsule 1 amitriptyline (ELAVIL) 10 mg tablet Take 3 tablets by mouth daily at bedtime. 270 tablet 1 alfuzosin SR (UROXATRAL) 10 mg 24 hr tablet Take 10 mg by mouth once daily. ciprofloxacin HCl (CIPRO) 500 mg tablet Take 500 mg by mouth twice daily. AVOCADO OIL, BULK, MISC 0.5 mg. cholestyramine low-calorie (PREVALITE) 4 gram packet Take 4 g by mouth twice daily. dutasteride (AVODART) 0.5 mg capsule Take 0.5 mg by mouth once daily. No current facility-administered medications for this visit. ALLERGIES No Known Allergies REVIEW OF SYSTEMS: PAIN ASSESSMENT: Negative for pain, history of chronic pain, or current treatment for a chronic pain condition. GENERAL: No weight loss, malaise or fevers RESPIRATORY: Negative for cough, hemoptysis, wheezing, COPD, dyspnea or shortness of breath CARDIOVASCULAR: Negative for chest pain, leg swelling, hypertension, CHF or palpitations GI: see above PHYSICAL FINDINGS OF NOTE: General - Normal, healthy, cooperative, in no acute distress Able to interact verbally by video conference Psych - ORIENTATION: normal to time place, person and situation Mood/Affect: AFFECT AND MOOD: Normal Head/Neuro - Normal size and shape Facial appearance normal Pulmonary - respiratory effort normal Cardiovascular - patient describes extremities normal, warm, no cyanosis,no clubbing, and no edema Abdominal - Not performed Skin - abnormal lesions not visualized Motor - patient seen sitting with Normal appearing strength and coordination REVIEWED ITEMS EGD 2020: The Z-line was regular and was found 41 cm from the incisors. The examined esophagus was normal. The entire examined stomach was normal. The examined duodenum was normal. Manometry 2020: LES: Low resting pressure, complete relaxation Body of the esophagus: --19 swallows failed --1 swallow with weak peristalsis in the distal esophagus (DCI 109, peristaltic wave in distal 4cm) MRS: DCI 104 Impressions Ineffective esophageal motility bodering on absent contractility, but there is one swallow with weak peristalsis and MRS with weak peristalsis Manometry 2019 Interpretation / Findings LES: Low resting pressure, complete relaxation Body of the esophagus: All swallows failed Impressions Absent contractility Kurt Stark MD [facility] Impedance on meds: Total Time spent in reflux (HH:MM) 00:12 Number of refluxes 63 Number of refluxes per hour 3.0 % Time spent in reflux 0.9 Number of long refluxes 0 Longest reflux (HH:MM) 00:01 Upright Time spent in reflux (HH:MM) 00:05 Number of refluxes 29 Number of refluxes per hour 2.1 % Time spent in reflux 0.7 Number of long refluxes 0 Longest reflux (HH:MM) 00:01 Supine Time spent in reflux (HH:MM) 00:06 Number of refluxes 34 Number of refluxes per hour 4.6 % Time spent in reflux 1.4 Number of long refluxes 0 Longest reflux (HH:MM) 00:01 Procedure Description Pt on medications Dexilant 60mg, Carafate 1gm and Zantac Interpretation / Findings Normal total acid exposure in both positions. SI shows no correlation to symptoms reported. Impression Pleasant 48M with esophageal aperistalsis, no clear etiology - testing for CTD negative. Symptoms under control with PPI BID and TCA Recommend: --Continue esomeprazole 40mg BID --Contine amitriptyline --Repeat FRANKY and CK --Screening colonoscopy. Given aperistalsis, will order low volume prep like Suprep Kurt Stark MD documented in this encounter [facility] 02-14-2023 Miscellaneous Notes Patient's request for medication is as follows: Requested Prescriptions Pending Prescriptions Disp Refills esomeprazole (NEXIUM) 40 mg capsule 180 capsule 1 Please send this med [facility]. Patient has a virtual appt with Dr Stark on 04/16. documented in this encounter [facility] 02-12-2023 Miscellaneous Notes Patient hasn't been seen in >1 year. Will prescribe 6 months worth, please inform the patient that he/she will need to obtain further scripts from a current provider such as his/her PCP or the patient can make a follow up appointment with me. Thank you documented in this encounter [facility] Evaluation note No assessment information availa [facility] Work Phone: Evaluation note Diagnosis Esophageal dysphagia- Primary Dysphagia, pharyngoesophageal phase Colon cancer screening Special screening for malignant neoplasms, colon Aperistalsis of esophagus Achalasia and cardiospasm [facility] Outpatient Procedure (Routine) - Pending Review Specialty Diagnoses / Procedures Referred By Efraín villalta Referred To Contact [facility] Diagnoses Colon cancer screening Procedures COLONOSCOPY SCREENING COLONOSCOPY FLX DX W/COLLJ SPEC WHEN PFRMD Kurt Stark MD [address] [place] [address] [facility] [address] [place] [address] Referral ID Status Reason Start Date Expiration Date Visits Requested Visits Authorized [id number] Pending Review Auto-Generat ed Referral 04/16/2023 04/16/2024 1 1 [facility] Family History No Family History Records Found Relationship Condition Age at Onset Recorded Date/T tony father Hypertension Unknown High blood cholesterol Unknown Malignant neoplasm Unknown mother Malignant neoplasm Unknown Advance Directives No Advanced Directives Records Found Advance Directive Response Recorded Date/ Time Advance Directives No June 11:24am Living Will No March 14, 2018 9 :57am Power of Pediatric Clinical Dietician No March 14, 2018 9:57am Advance Directive Response Recorded Date/ Time Advance Directives No June 10:24am Living Will No March 14, 2018 8 :57am Power of Pediatric Clinical Dietician No March 14, 2018 8:57am Reason for Referral Specialty Diagnoses / Procedures Referred By Efraín ivllalta Referred To Contact Kurt Stark MD [address] [id number] Referral ID Status Reason Start Date Expiration Date V isits Requested Visits Authorized [id number] Pending Review 1 1 Summary Purpose Additional Source Comments Goals (unrecognized section and content) Goals may be documented in a n alternate sectionGoals may be documented in an alternate sectionGoals may be documented in an alternate section Source Comments (unrecognize d section and content) In the event this informatio n is protected by the Federal Confidentiality of Alcohol and Drug Abuse Patient Records regulations: The Federal rules restrict any use of the information to criminally investigate or prosecute any alcohol or drug abuse patient.[facility] the event this information is protected by the Federal Confidentiality of Alcohol and Drug Abuse Patient Records regulations: The Federal rules restrict any use of the information to criminally investigate or prosecute any alcohol or drug abuse patient.[facility] the event this information is protected by the Federal Confidentiality of Alcohol and Drug Abuse Patient Records regulations: The Federal rules restrict any use of the information to criminally investigate or prosecute any alcohol or drug abuse patient.[facility] the event this information is protected by the Federal Confidentiality of Alcohol and Drug Abuse Patient Records regulations: The Federal rules restrict any use of the information to criminally investigate or prosecute any alcohol or drug abuse patient.[facility] the event this information is protected by the Federal Confidentiality of Alcohol and Drug Abuse Patient Records regulations: The Federal rules restrict any use of the information to criminally investigate or prosecute any alcohol or drug abuse patient.[facility] Reason for Visit (unrecogniz ed section and content) Reason Onset Date Comments Refill Request 04/15/2022 Reason Onset Date Comments Refill Request 02/11/2023 Reason Onset Date Comments Refill Request 02/14/2023 Reason Comments GERD Reason Comments Insurance Authorization Esomeprazole 40 mg BID Care Teams (unrecognized sec tion and content) News Copy Editor Relationship Specialty Start Date End Date Aleksandra De La Cruz [address] [facility] [address] [place] [address] PCP - General Family Practice 04/08/18 Team Status: Active Member Role Status Dates Dr. Aleksandra De La Cruz MD Family Provider Active Dr. Aleksandra De La Cruz MD Primary Care Provider Active Team Status: Inactive Member Role Status Dates Dr. Aleksandra De La Cruz MD Primary Care Provider Active Jessenia Kwong , [employer] Attending Provider, Teresa landry Provider Active News Copy Editor Relationship Specialty Start Date End Date Aleksandra De La Cruz [address] [place] [address] PCP - General Family Medicine 04/08/18 News Copy Editor Relationship Specialty Start Date End Date Aleksandra De La Cruz [address] [place] [address] PCP - General Family Medicine 04/08/18 News Copy Editor Relationship Specialty Start Date End Date Aleksandra De La Cruz [address] [place] [address] PCP - General Family Medicine 04/08/18 News Copy Editor Relationship Specialty Start Date End Date Aleksandra De La Cruz [address] [place] [address] PCP - General Family Medicine 04/08/18 (unrecognized sect ion and content) No Status Records FoundNo Status Records Found INFORMATION SOURCE (unrecogn ized section and content) DATE CREATED AUTHOR 05/11/2023 [facility] DATE CREATED AUTHOR AUTHOR'S KATIA ALVAREZ 10/15/2024 [facility] FOR RECORDS PERTAINING TO PATIENTS WHO ARE OR HAVE BEEN ENROLLED IN A CHEMICAL DEPENDENCY/SUBSTANCEABUSE PROGRAM, SOME INFORMATION MAY BE OMITTED. This clinical summary was aggregated from multiple sources. Caution should be exercised in using it in the provision of clinical care. This summary normalizes information from multiple sources, and as a consequence, information in this document may materially change the coding, format and clinical context of patient data. In addition, data may be omitted in some cases. CLINICAL DECISIONS SHOULD BE BASED ON THE PRIMARY CLINICAL RECORDS. [facility]. provides no warranty or guarantee of the accuracy or completeness of information in this document.
[2025-09-04 17:40] LABS: Hematocrit 46.7 % (40-54); Hemoglobin 16.3 g/dL (13.0-16.5); Mean Corp Hgb Conc 34.9 g/dL (32-36); Mean Corpuscular Volume 80.7 fL (80-94); Mean Platelet Vol. 9.8 fl (6.2-12.0); Platelet Count 215 K/mm3 (150-450); RBC Distribution Width CV 12.8 % (11.6-14.6); RBC Distribution Width SD 37.2 fl (35.1-43.9); Red Blood Count 5.79 M/mm3 (4.6-6.2); White Blood Count 6.1 K/mm3 (4.4-11.0)
[2025-09-04 18:13] LABS: AST(SGOT) 27 U/L (<=37); Alanine Aminotransfer ALT/SGPT 30 U/L (<=46); Albumin, Serum 4.5 g/dL (3.5-5.0); Alkaline Phosphatase 76 U/L (40-129); Anion Gap 9 (5-15); BUN 14 mg/dL (4-19); BUN/Creat Ratio 16.0 RATIO (10-20); Calcium,Total 9.5 mg/dL (7.6-11.0); Carbon Dioxide 27.7 mmol/L (21.0-32.0); Chloride 104 mmol/L (98-108); Globulin 3.1 g/dL (2.2-4.2); Glucose 97 mg/dL (70-99); Potassium 4.0 mmol/L (3.3-5.1); Uric Acid 6.1 mg/dL (3.5-7.2)
== END | disposition home or self-care (01) ==
LOC: MTLAB 15:24
PROVIDERS: PCP Family Medicine; Referring Provider Family Medicine; Visit Provider Family Medicine
DX: I10 Essential (primary) hypertension (principal)
CPT/HCPCS: 36415; 80053; 82088; 84244; 84443; 84550; 85027

== ENCOUNTER → 2025-09-24 | Outpatient (CLI) | payer OTHER, SELFPAY ==
--- NOTE | 2025-09-24 06:38 | ECHOD_ITS ---
Reason For Study : Syncope Left Ventricle Normal LV size. Moderate eccentric left ventricular hypertrophy. The global longitudinal strain = -18.1 % (normal). The left ventricular ejection fraction is 60 %. Normal diastology for age. No regional wall motion abnormalities noted. Right Ventricle Normal RV size. The RV free wall longitudinal strain was -25.5 % . Normal systolic function. Atria Normal left atrium. Normal right atrium. Mitral Valve Normal mitral valve. Trivial eccentric mitral valve insufficiency. Tricuspid Valve Normal tricuspid valve. Aortic Valve Trisinus/trileaflet aortic valve. Pulmonic Valve Normal pulmonic valve. Great Vessels Normal aortic root. The pulmonary artery is normal size. Inferior vena cava collapse with respiration. Pericardium/Pleural No pericardial effusion. MMode/2D Measurements & Calculations LVIDd: 4.6 cm IVSd: 1.0 cm LVOT diam: 2.3 cm LVIDs: 2.6 cm LVPWd: 1.5 cm LVOT area: 4.1 cm2 RVDd: 4.1 cm FS: 43.4 % Ao root diam: 3.0 cm LAV(MOD-bp): 46.2 ml RVOT diam: 2.4 cm LAV(MOD-bp) Indexed: 19.3 ml/m2 LAV(MOD-sp2): 45.2 ml LAV(MOD-sp4): 43.0 ml LVAd ap4: 25.6 cm2 LVAd ap2: 28.8 cm2 SV(MOD-sp4): 42.1 ml LVLd ap4: 7.5 cm LVLd ap2: 8.7 cm SI(MOD-sp4): 17.6 ml/m2 EDV(MOD-sp4): 73.1 ml EDV(MOD-sp2): 82.8 ml EDV(sp4-el): 74.0 ml EDV(sp2-el): 80.9 ml LVAs ap4: 15.2 cm2 LVAs ap2: 16.0 cm2 LVLs ap4: 6.3 cm LVLs ap2: 7.8 cm ESV(MOD-sp4): 31.1 ml ESV(MOD-sp2): 28.8 ml ESV(sp4-el): 30.8 ml ESV(sp2-el): 27.8 ml EF(MOD-sp4): 57.5 % EF(MOD-sp2): 65.3 % EF(sp4-el): 58.4 % SV(MOD-sp2): 54.0 ml SV(sp4-el): 43.2 ml LA A4 area: 16.3 cm2 SI(MOD-sp2): 22.6 ml/m2 LA dimension(2D): 3.9 cm RA A4 area: 13.9 cm2 TAPSE: 2.2 cm Time Measurements MV dec time: 0.17 sec Doppler Measurements & Calculations MV E max martínez: 84.4 cm/sec Lat Peak E' Martínez: 13.9 cm/sec Med Peak E' Martínez: 9.9 cm/sec MV A max martínez: 56.4 cm/sec E/E' lat: 6.1 E/E' med: 8.5 MV E/A: 1.5 MV dec slope: 512.8 cm/sec2 Ao V2 max: 144.9 cm/sec LV V1 max: 118.4 cm/sec Ao max P.4 mmHg LV V1 max P.6 mmHg Ao V2 mean: 106.9 cm/sec LV V1 mean P.3 mmHg Ao mean P.2 mmHg LV V1 mean: 86.9 cm/sec Ao V2 VTI: 30.8 cm LV V1 VTI: 24.1 cm AV (velocity ratio): 0.78 NITA(I,D): 3.2 cm2 NITA(V,D): 3.4 cm2 SV(LVOT): 99.3 ml ECHO/Echo Complete Interpretation Summary The RV free wall longitudinal strain was -25.5 % . Normal LV size. The global longitudinal strain = -18.1 % (normal). The left ventricular ejection fraction is 60 %. Normal systolic function. Moderate eccentric left ventricular hypertrophy. Structurally normal valves. Ordering Physician: Matt Souza Referring Physician: Matt Souza Performed By: Joi Shelley RDCS
--- OUTSIDE RECORDS SUMMARY | 2025-09-24 06:39 | XMS RPT_ITS | CCD ---
Author Organization [facility] Inform ion Partnership [facility] Care Team Providers Care Popcorn Vendor Name Role Phone Aleksandra De La Cruz Primary Care Provider ALEKSANDRA DE LA CRUZ Primary Care Unavailable KURT STARK Referring Unavailable FARIHA, ALEKSANDRA BARNES Primary Care Unavailable KURT STARK Attending Unavailable Carmelo Garsia Referring Unavailable Carmelo Garsia Attending Unavailable Carmelo Garsia Consulting Unavailable Corryiff, Aleksandra S Primary Care Unavailable Carmelo Garsia Referring Unavailable Carmelo Garsia Attending Unavailable Jolliff, Aleksandra S Primary Care Unavailable Beaumont, Haley Referring Unavailable Beaumont, Haley Attending Unavailable Jolliff, Aleksandra S Primary [...] source) Adhesive Tape Drug allergy (disorder) 09-30-2024 [facility] Repository (1 source) Iodine Drug Allergy 09-30-2024 [facility] Repository (1 source) Povidone-Iodine Drug Allergy 09-30-2024 [facility] Repository Medications Current Medications Medication Drug Class(es) [...] on above: Take [address] [facility] daily at bedtime. AVOCADO OIL, BULK, [...] Start: 04-17-2022 take [address] [facility] twice daily before breakfast esomeprazole (NEXIUM) [...] Range Facility Colonoscopy Reporton 024 Colonoscopy Report [facility] Medical Records Department [address] [place] [address] Colonoscopy Report MR#: [id number] Acct: [id number] Name: ABBEY JORDAN Rep #: [id number] : 1975 49 From: Andrew Brewer DO PCP: Dr. Aleksandra De La Cruz MD [place] Patient Name: Abbey Jordan Procedure Date: 09/30/2024 [...] for surveillance. Procedure Code(s): --- Professional --- 74696, Colonoscopy, flexible; with biopsy, single or multiple CPT copyright 2021 [employer]. All rights reserved. The codes documented in this report are preliminary and upon assistant merchandise manager review may be revised to meet current compliance requirements. Andrew Brewer DO 09/30/2024 7:46:18 AM This report has been signed electronically. Number of Addenda: 0 Note Initiated On: 09/30/2024 7:14 AM 09/30/24 0746 Date Andrew Brewer DO Cosigner Signature: Date (if indicated) CC: Dr. Aleksandra De La Cruz MD; Andrew Brewer, Date Dictated: 09/30/24713 Date Transcribed: Pheresis Nurse: RF Signed [facility] MR/POSTOP.ANEon 09-30-2024 MR/POSTOP.ANE [facility] Medical Records Department [address] [place] [address] Anesthesia Postop Eval I 09/30/24822 MR#: [id number] Acct: [id number] Name: ABBEY JORDAN RA Rep #: [id number] : 1975 49 From: Lenny Suárez MD PCP: Dr. Aleksandra De La Cruz MD Status:[facility] Race: C Location: Anesthesia: Postop Eval [...] Suárez MD Cosigner Signature: Date CC: Signed [facility] MR/BPBUDUYS2rh 09-30-2024 MR/POSTOPAN2 [facility] Medical Records Department [address] [place] [address] Anesthesia Postop Eval II 09/30/24823 MR#: [id number] Acct: [id number] Name: ABBEY JORDAN Rep #: [id number] : 1975 49 From: Lenny Suárez MD [...] MD Cosigner Signature: Date CC: Signed Normal [facility] Surgery Specimen Level Shavonne 09-30-2024 Surgery Specimen Level IV -------- Patient Age/Sex Location Account Attending Physician -------- ABBEY JORDAN 49/M EN [id number] Andrew Brewer DO -------- Specimen: [id number] Received: 09/30/24 Status: [facility]co Num: [id number] Spec Type: COLON BX Subm Dr: Andrew [...] submitted in one cassette. AM. 09/30/2024 TC:5 CPT:71859 -------- Patient Age/Sex Location Account Attending Physician -------- ABBEY JORDAN 49/M EN [id number] Andrew Brewer DO -------- Signed (signature on file) Dr. Amari Alexander DO 10/01/24 1257 -------- Normal [facility] Comment on above: Performed By: #### P UMANG #### [facility] [place], [place], [id number] PSA,Total - Annual Screenon 05-06-2024 PSA,TOT SCREEN 0.18 ng/mL Normal 0.00-4.00 [facility] Comment on above: Result Comment: This test was performed using the TPSA assay method for the Dimension chemistry system. Values obtained with different assay methods cannot be used interchangably. When changing PSA assays in the course of monitoring a patient, additional sequential testing should be carried out to confirm baseline values. Performed By: #### L 501.9910 #### [facility] [address] [place], [address] Orthopedic Visit Reporton Orthopedic Visit Report [facility] [address] [place] [address] [address] [place] [address] OFFICE VISIT Date of Service: 11/26/23 MR#: [id number] Acct: [id number] Name: ABBEY JORDAN Rep #: [id number] : 1975 Provider: Dr. Carmelo motta, DO Age/Sex: 48/M [place] [facility] [place] Status: Signed Intake Vital Signs 08/13/23 08:27 [...] mg PO DAILY 11/02/23 [History Confirmed 11/26/23] [facility] Medical History (Updated 11/19/23 @ 15:40 by [...] Cosigner Signature: Date (if applicable) CC: Normal [facility] Orthopedic Visit Reporton Orthopedic Visit Report [facility] [address] [place] [address] OFFICE VISIT Date of Service: 11/19/23 MR#: [id number] Acct: [id number] Name: ABBEY JORDAN Rep #: [id number] : 1975 Provider: Dr. Carmelo motta DO Age/Sex: 48/M [place] [facility] [place] [facility] Status: Signed Intake Vital Signs 11/13/23 10:15 11/19/23 12:41 Height 5 ft 11 in 5 ft 11 in Intake Visit Reasons: LEFT WRIST Chief Complaint: left hand Allergies adhesive tape Allergy (Severe, Verified 11/13/23 09:55) Rash iodine Allergy (Severe, Verified 11/13/23 09:55) Rash povidone-iodine [From Betadine] Allergy (Severe, Verified 11/13/23 09:55) Rash [facility] Medical History (Updated 11/19/23 @ 15:40 by [...] point I will call him in a [employer]ien[employer]ol Dosepak and see him back next week for suture removal Medications: New methylprednisolone (Medrol (Florencio)) take as directed 21 tabs 0RF 11/19/23 1541 Date Carmelo Garsia DO Cosigner Signature: Date (if applicable) CC: Normal [facility] Discharge Instructionon 10-23 Discharge Instruction [facility] Medical Records Department [address] [place] [address] Instructions for Home/Discharge Instructions 11/13/23 1142 MR#: [id number] Acct: [id number] Name: ABBEY JORDAN Rep #: [id number] : 1975 48 From: Carmelo Garsia DO PCP: Dr. Aleksandra De La Cruz MD Status[place] Discharge Instructions Diet Discharge Diet: No restrictions [...] Aleksandra De La Cruz MD Signed Normal [facility] Operative Reporton 4 Operative Report [facility] Medical Records Department [address] [place] [address] Operative Report 11/13/23 1142 MR#: [id number] Acct: [id number] Name: ABBEY JORDAN Rep #: [id number] : 1975 48 From: Carmelo Garsia DO PCP: Dr. Aleksandra De La Cruz MD Status:[employer] Location: [place] [address] Operative Report Date of Procedure: 11/13/23 Preoperative [...] MD; Dr. Carmelo Garsia DO Signed Normal [facility] FRANKY BY IFA WITH REFLEXon Nuclear Ab IF (S) [Titer] Negative Normal Negative [facility] Comment on above: Order Comment: Speci men Type: BLOOD SPECIMEN Ordering Facility: [facility] Address: [address] [place] [address] Result Comment: Anti -nuclear antibody test is used as an aid in diagnosis of systemic autoimmune diseases. Where positive and clinically warranted, follow-up using disease-specific testing is recommended. Low positive titers are not uncommon with advanced age, certain chronic infections, and malignancies among others. Test methodology: Indirect fluorescence immunoassay (IFA) using HEp-2 cells. Performed By: #### A NAIFR #### [facility] CLIA [id number] [address] [place] [address] [place] CBC panel Auto (Bld)on 05-09 Erythrocyte distribution width (RBC) [Ratio] 13.2 % Normal 11.5-15.0 [facility] Comment on above: Order Comment: Carmen motta Type: BLOOD SPECIMEN Ordering Facility: [facility] Address: [address] [place] [address] Performed By: #### 5 8410-2 #### [facility] CLIA [id number] [address] [place] [address] [place] Hematocrit (Bld) [Volume fraction] 45.8 % Normal 39.0-51.0 [facility] Comment on above: Order Comment: Carmen motta Type: BLOOD SPECIMEN Ordering Facility: [facility] Address: [address] [place] [address] Performed By: #### 5 8410-2 #### [facility] CLIA [id number] [address] [place] [address] [place] Hemoglobin (Bld) [Mass/Vol] 15.4 g/dL Normal 13.0-17.0 [facility] Comment on above: Order Comment: Carmen motta Type: BLOOD SPECIMEN Ordering Facility: [facility] Address: [address] [place] [address] Performed By: #### 5 8410-2 #### [facility] CLIA [id number] [address] [place] [address] [place] MCH (RBC) [Entitic mass] 27.6 pg Normal 26.0-34.0 [facility] Comment on above: Order Comment: Speci men Type: BLOOD SPECIMEN Ordering Facility: [facility] Address: [address] [place], [place] [address] Performed By: #### 5 8410-2 #### [facility] CLIA [id number] [address] [place] [address] [place] MCHC (RBC) [Mass/Vol] 33.6 g/dL Normal 30.5-36.0 [facility] Comment on above: Order Comment: Speci men Type: BLOOD SPECIMEN Ordering Facility: [facility] Address: [address] [place], [place] [address] Performed By: #### 5 8410-2 #### [facility] CLIA [id number] [address] [place] MCV (RBC) [Entitic vol] 82.1 fL Normal 80.0-100.0 [facility] Comment on above: Order Comment: Speci men Type: BLOOD SPECIMEN Ordering Facility: [facility] Address: [address] [place], [place] [address] Performed By: #### 5 8410-2 #### [facility] CLIA [id number] [address] [place] [address] [place] Nucleated RBC (Bld) [#/Vol] 10*3/uL Normal <0.01 [facility] Comment on above: Order Comment: Speci men Type: BLOOD SPECIMEN Ordering Facility: [facility] Address: [address] [place], [place] [address] Performed By: #### 5 8410-2 #### [facility] CLIA [id number] [address] [place] [address] [place] Platelet mean volume (Bld) [Entitic vol] 9.8 fL Normal 9.0-12.7 [facility] Comment on above: Order Comment: Speci men Type: BLOOD SPECIMEN Ordering Facility: [facility] Address: [address] [place], [place] [address] Performed By: #### 5 8410-2 #### [facility] CLIA [id number] [address] [place] [address] [place] Platelets (Bld) [#/Vol] 205 10*3/uL Normal 150-400 [facility] Comment on above: Order Comment: Speci men Type: BLOOD SPECIMEN Ordering Facility: [facility] Address: [address] [place], [place] [address] Performed By: #### 5 8410-2 #### [facility] CLIA [id number] [address] [place] [address] [place] RBC (Bld) [#/Vol] 5.58 10*6/uL Normal 4.20-6.00 [facility] Comment on above: Order Comment: Speci men Type: BLOOD SPECIMEN Ordering Facility: [facility] Address: [address] [place], [place] [address] Performed By: #### 5 8410-2 #### [facility] CLIA [id number] [address] [place] [address] [place] WBC (Bld) [#/Vol] 6.16 10*3/uL Normal 3.70-11.00 [facility] Comment on above: Order Comment: Speci men Type: BLOOD SPECIMEN Ordering Facility: [facility] Address: [address] [place], [place] [address] Performed By: #### 5 8410-2 #### [facility] CLIA [id number] [address] [place] [address] [place] CK SerPl-cCncon 05-09-2023 CK [Catalytic activity/Vol] 133 U/L Normal 51-298 [facility] Comment on above: Order Comment: Speci men Type: BLOOD SPECIMEN Ordering Facility: [facility] Address: [address] [place], [place] [address] Performed By: #### 2 157-6, 55138-6, 51154-0, 2132-06 #### [facility] CLIA [id number] [address] [place] [address] [place] Comprehensive metabolic 2000 panelon 05-09-2023 Albumin [Mass/Vol] 4.3 g/dL Normal 3.9-4.9 [facility] Comment on above: Order Comment: Speci men Type: BLOOD SPECIMEN Ordering Facility: [facility] Address: [address] Performed By: #### 2 157-6, 02948-0, 74244-0, 2132-06 #### [facility] CLIA [id number] [address] [place] [address] [place] ALP [Catalytic activity/Vol] 74 U/L Normal 38-113 [facility] Comment on above: Order Comment: Speci men Type: BLOOD SPECIMEN Ordering Facility: [facility] Address: [address] [place] [address] Performed By: #### 2 157-6, 78518-6, 26082-8, 2132-06 #### [facility] CLIA [id number] [address] [place] [address] [place] ALT [Catalytic activity/Vol] 31 U/L Normal 10-54 [facility] Comment on above: Order Comment: Speci men Type: BLOOD SPECIMEN Ordering Facility: [facility] Address: [address] Performed By: #### 2 157-6, 47882-8, 26443-7, 2132-06 #### [facility] CLIA [id number] [address] [place] [address] [place] Anion gap [Moles/Vol] 11 mmol/L Normal 9-18 [facility] Comment on above: Order Comment: Speci men Type: BLOOD SPECIMEN Ordering Facility: [facility] Address: [address] [place] [address] Performed By: #### 2 157-6, 21853-9, 46525-1, 2132-06 #### [facility] CLIA [id number] [address] [place] [address] [place] AST [Catalytic activity/Vol] 29 U/L Normal 14-40 [facility] Comment on above: Order Comment: Speci men Type: BLOOD SPECIMEN Ordering Facility: [facility] Address: [address] [place] [address] Performed By: #### 2 157-6, 99305-7, 09899-9, 2132-06 #### [facility] CLIA [id number] [address] [place] [address] [place] Bilirubin [Mass/Vol] 0.4 mg/dL Normal 0.2-1.3 [facility] Comment on above: Order Comment: Speci men Type: BLOOD SPECIMEN Ordering Facility: [facility] Address: [address] [place] [address] Performed By: #### 2 157-6, 98571-7, 49786-3, 2132-06 #### [facility] CLIA [id number] [address] [place] [address] [place] Calcium [Mass/Vol] 9.3 mg/dL Normal 8.5-10.2 [facility] Comment on above: Order Comment: Speci men Type: BLOOD SPECIMEN Ordering Facility: [facility] Address: [address] [place], [place] [address] Performed By: #### 2 157-6, 35011-6, 42150-1, 2132-06 #### [facility] CLIA [id number] [address] [place] [address] [place] Chloride [Moles/Vol] 102 mmol/L Normal 97-105 [facility] Comment on above: Order Comment: Speci men Type: BLOOD SPECIMEN Ordering Facility: [facility] Address: [address] [place], [place] [address] Performed By: #### 2 157-6, 72525-5, , 2132-06 #### [facility] CLIA [id number] [address] [place] [address] [place] CO2 [Moles/Vol] 25 mmol/L Normal 22-30 [facility] Comment on above: Order Comment: Speci men Type: BLOOD SPECIMEN Ordering Facility: [facility] Address: [address] [place] [address] Performed By: #### 2 157-6, 67250-7, , 2132-06 #### [facility] CLIA [id number] [address] [place] [address] [place] Creatinine [Mass/Vol] 0.84 mg/dL Normal 0.73-1.22 [facility] Comment on above: Order Comment: Speci men Type: BLOOD SPECIMEN Ordering Facility: [facility] Address: [address] [place] [address] Performed By: #### 2 157-6, 27507-8, , 2132-06 #### [facility] CLIA [id number] [address] [place] [address] [place] ESTIMATED GLOMERULAR FILTRATION RATE 107 mL/min/1.73m??? Normal >=60 [facility] Comment on above: Order Comment: Speci men Type: BLOOD SPECIMEN Ordering Facility: [facility] Address: [address] [place] [address] Result Comment: Anjelica mated Glomerular Filtration Rate [...] actual GFR. Performed By: #### 2 157-6, 51426-8, , 2132-06 #### [facility] CLIA [id number] [address] [place] [id number] [place] Glucose [Mass/Vol] 145 mg/dL High 74-99 [facility] Comment on above: Order Comment: Carmen motta Type: BLOOD SPECIMEN Ordering Facility: [facility] Address: [address] [place], [place] [address] Result Comment: The [place] [employer] (ADA) provides guidance for cutoff [...] Standards of Medical Care in Diabetes 2016, [place] [employer]. Diabetes Care. 2016.39(Suppl 1). Performed By: #### 2 157-6, 08360-7, , 2132-06 #### [facility] CLIA [id number] [address] [place] [address] [place] Potassium [Moles/Vol] 4.1 mmol/L Normal 3.7-5.1 [facility] Comment on above: Order Comment: Carmen motta Type: BLOOD SPECIMEN Ordering Facility: [facility] Address: [address] [place] [address] Performed By: #### 2 157-6, 53173-7, , 2132-06 #### [facility] CLIA [id number] [address] [place] [address] [place] Protein [Mass/Vol] 6.3 g/dL Normal 6.3-8.0 [facility] Comment on above: Order Comment: Carmen motta Type: BLOOD SPECIMEN Ordering Facility: [facility] Address: [address] [place], [place] [address] Performed By: #### 2 157-6, 95271-9, 40929-3, 2132-06 #### [facility] CLIA [id number] [address] [place] [address] [place] Sodium [Moles/Vol] 138 mmol/L Normal 136-144 [facility] Comment on above: Order Comment: Speci men Type: BLOOD SPECIMEN Ordering Facility: [facility] Address: [address] [place] [address] Performed By: #### 2 157-6, 82500-7, 85940-5, 2132-06 #### [facility] CLIA [id number] [address] [place] [address] [place] Urea nitrogen [Mass/Vol] 13 mg/dL Normal 9-24 [facility] Comment on above: Order Comment: Speci men Type: BLOOD SPECIMEN Ordering Facility: [facility] Address: [address] Performed By: #### 2 157-6, 29337-4, 52061-5, 2132-06 #### [facility] CLIA [id number] [address] [place] [address] [place] Magnesium SerPl-mCncon 05-09 Magnesium [Mass/Vol] 2.0 mg/dL Normal 1.7-2.3 [facility] Comment on above: Order Comment: Speci men Type: BLOOD SPECIMEN Ordering Facility: [facility] Address: [address] Performed By: #### 2 157-6, 79834-8, 46405-6, 2132-06 #### [facility] CLIA [id number] [address] [place] [address] [place] Vit B12 SerPl-mCncon 023 Cobalamin (Vitamin B12) [Mass/Vol] 722 pg/mL Normal 232-1245 [facility] Comment on above: Order Comment: Speci men Type: BLOOD SPECIMEN Ordering Facility: [facility] Address: [address] [place] [address] Performed By: #### 2 157-6, 88272-5, 44511-7, 2132-9 #### [facility] CLIA [id number] [address] [facility] [id number] [place] [address] [facility] CNPCynthia 04-20-2023 CNPN Telephone (GASTMN) ABBEY JORDAN ([id number]) 1975 M Date Time Provider Department 04/20/23 KURT STARK GASTFL During your visit today, we recorded the following information about you: Elmer Nix LPN 04/20/2023 2:45 PM Signed PA submission via [facility] esomeprazole (NEXIUM) 40 mg capsule 180 capsule 3 04/16/2023 Sig: Take 1 capsule by mouth twice daily before meals. Take 30 min before breakfast and dinner De Los Santos: [id number] - JONATHAN - Rx #: [id number] Elmer Nix LPN 04/25/2023 11:58 AM Signed CaseId:[id number]; Status:Approved; Review Type:Prior Auth; Coverage Start Date:03/21/2023; Coverage End Date:04/19/2024; Allergies As of Date: 04/20/2023 (No Known Allergies) Date Reviewed: 04/12/2021 Reviewed by: Celia Mckeon RN - Fully Assessed Reason for Visit: Insurance Authorization [[id number]] Cmt: Esomeprazole 40 mg BID Prescriptions as [...] Encounter Status:Closed by ELMER SOLIS on 04/20/23 [facility] No Panel InformationOrdered By: ROSENDO Kwong on 01-18-2023 Prostate Specific Antigen Screen 0.19 ng/mL 0.00-4.00 [facility] Comment on above: This test was perfor med using the TPSA assay method for the[facility] system. Values obtained with differentassay methods cannot be used interchangably.When changing PSA assays in the course of monitoring apatient, additional sequential testing should be carriedout to confirm baseline values. Basophil percentageon 2021 Bilirubin [Mass/Vol] 0.50 mg/dL 0.20-1.00 [facility] Work Phone: Comment on above: For patients on eltr ombopag therapy, use of Dimension [place] TBIL is not recommended. Chloride [Moles/Vol] 106 mmol/L 98-107 [facility] Work Phone: Cholesterol [Mass/Vol] 211 mg/dL <200 [facility] Work Phone: Comment on above: <200 mg/dL Desirable 200-240 mg/dL Borderline >240 mg/dL High Risk Glucose [Mass/Vol] 104 mg/dL 74-106 [facility] Work Phone: Comment on above: Fasting Glucose resu lt from 100 to 125 mg/dL suggests IMPAIRED HOMEOSTASIS per A.D.A. criteria. Potassium [Moles/Vol] 3.8 mmol/L 3.5-5.1 [facility] Work Phone: Protein [Mass/Vol] 6.9 g/dL 6.4-8.2 [facility] Work Phone: Sodium [Moles/Vol] 140 mmol/L 136-145 [facility] Work Phone: Triglyceride [Mass/Vol] 238 mg/dL <199 [facility] Work Phone: Comment on above: The drugs N-Acetylcy steine and Metamizole may falsely depress this assay.Serum Triglycerides Reference Interval Normal <150 mg/dL Borderline high 150 - 199 mg/dL High 200 - 499 mg/dL Very High > or = 500 mg/dL Laboratory - Chemistry and C hemistry - challengeon 09-13-2022 ALP [Catalytic activity/Vol] 74 U/L 45-117 [facility] Work Phone: ALT [Catalytic activity/Vol] 49 U/L 16-61 [facility] Work Phone: CO2 [Moles/Vol] 26.0 mmol/L 21.0-32.0 [facility] Work Phone: Globulin (S) [Mass/Vol] 3.0 g/dL 2.2-4.2 [facility] [facility] Work Phone: Urea nitrogen/Creatinine [Mass ratio] 17.3 mg/mg 10-20 [facility] Work Phone: No Panel Informationon 09-13 Estimated GFR (MDRD) Amer 130 mL/min >60 [facility] Work Phone: Comment on above: GFR Calc Estimated GFR (MDRD) Non-Af Amer 108 mL/min >60 [facility] Work Phone: Comment on above: Non- GFR Calc Serum or plasma albumin komal urement (mass/volume)on 09-13-2022 Albumin [Mass/Vol] 3.9 g/dL 3.2-5.0 [facility] Work Phone: Serum or plasma albumin/glob ulin mass ratioon 09-13-2022 Albumin/Globulin [Mass ratio] 1.3 {ratio} 0.9-2.4 [facility] Work Phone: Serum or plasma calcium komal urement (mass/volume)on 09-13-2022 Calcium [Mass/Vol] 8.8 mg/dL 8.5-10.1 [facility] Work Phone: Serum or plasma cholesterol in HDL measurement (mass/volume)on 09-13-2022 Cholesterol in HDL [Mass/Vol] 31 mg/dL >40 [facility] Work Phone: Comment on above: The drugs N-Acetylcy steine and Metamizole may falsely depress this assay. Reference Range HDL <40 mg/dL Low HDL Cholesterol HDL >or= 60 mg/dL High HDL Cholesterol Serum or plasma cholesterol in VLDL measurement (mass/volume)on 09-13-2022 Cholesterol in VLDL [Mass/Vol] 48 mg/dL 5-40 [facility] Work Phone: Serum or plasma creatinine m easurement (mass/volume)on 09-13-2022 Creatinine [Mass/Vol] 0.81 mg/dL 0.70-1.30 [facility] Work Phone: Comment on above: The validity of the calculated GFR & GFRAA in patients over 70 years has not been determined. Clinical correlation is essential. Serum or plasma low density lipoprotein (LDL) cholesterol measurement (mass/volume)on 09-13-2022 Cholesterol in LDL [Mass/Vol] 132 mg/dL 0-130 [facility] Work Phone: Serum or plasma urea nitroge n measurement (mass/volume)on 09-13-2022 Urea nitrogen [Mass/Vol] 14 mg/dL 7-18 [facility] Work Phone: Thin prep Papanicolaou smear with manual screeningon 09-13-2022 Thin prep Papanicolaou smear with manual screening 27 U/L 15-37 [facility] Work Phone: Thin prep Papanicolaou smear with manual screening 8 5-15 [facility] Work Phone: No Panel Informationon 01-16 Prostate Specific Antigen Screen 0.10 ng/mL 0.00-4.00 [facility] Work Phone: Comment on above: This test was perfor med using the TPSA assay method for [employer] chemistry system. Values obtained with differentassay methods cannot be used interchangably.When changing PSA assays in the course of monitoring apatient, additional sequential testing should be carriedout to confirm baseline values. Encounters Encounter Date Encounter Type Care Provider Facility Start: 09-30-2024 End: 09-30-2024 ambulatory Andrew Brewer Facility:[facility] Start: 08-13-2024 ambulatory Yanira Roche Facility:[facility] Start: 05-06-2024 End: 05-06-2024 ambulatory Haley Langstoning Facility:[facility] Start: 11-26-2023 End: 11-26-2023 ambulatory Aleksandra S Jolliff Facility:[facility] Start: 11-19-2023 End: 11-19-2023 ambulatory Aleksandra S Jolliff Facility:[facility] Start: 11-13-2023 ambulatory [facility] Facility :[facility] Start: 11-13-2023 End: 11-13-[facility] Start: 05-09-2023 End: 05-10-2023 ambulatory ALEKSANDRA CAMERON JOLLIFF Facility:[facility] Start: 04-20-2023 Telephone encounter Kurt fisher MD Work Phone: Gastroenterology Comment on above: Insurance Authorizat ion (Esomeprazole 40 mg BID) Start: 04-16-2023 End: 04-16-2023 ambulatory ALEKSANDRA CAMERON JOLLIFF Facility:[facility] Start: 04-16-2023 End: 04-16-2023 ambulatory Kurt Stark MD Work Phone: Gastroenterology Comment on above: Esophageal dysphagia (Primary Dx); Colon cancer screening; Aperistalsis of esophagus Start: 04-16-2023 End: 04-16-2023 Telemedicine consultation with patient Kurt Stark MD Work Phone: [facility] Start: 02-14-2023 Refill Kurt carranza MD Work Phone: Gastroenterology Comment on above: Refill Request Start: 02-11-2023 Refill Evonne Infante MD Work Phone: Gastroenterology Comment on above: Refill Request Start: 01-18-2023 End: 01-18-2023 ambulatory [facility] Work Phone: Start: 01-18-2023 End: 01-18-2023 Patient encounter procedure [facility] Start: 09-13-2022 End: 09-13-2022 ambulatory [facility] Work Phone: Start: 09-13-2022 End: 09-13-2022 Patient encounter procedure [facility] Start: 04-15-2022 Refill Kurt carranza MD Work Phone: Gastroenterology Comment on above: Refill Request Start: 01-16-2022 End: 01-16-2022 Patient encounter procedure [facility] Procedures Date Procedure Procedure Detail Performing Clinician 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 tunnel release Plan of Treatment Date Care Activity Detail Author Start: 06-22-2023 Influenza vaccination INFLUENZ A (Season Ended) [facility] Start: 04-16-2023 End: 06-16-2023 FRANKY BY IFA WITH REFLEX FRANKY BY IFA WITH REFLEX Lab Routine Aperistalsis of esophagus Expected: 04/16/2023, Expires: 06/16/2023 [facility] Work Phone: Comment on above: Expected: 04/16/2023 , Expires: 06/16/2023 Start: 04-16-2023 End: 06-16-2023 CBC panel - Blood by Automated count CBC Lab Routine Aperistalsis of esophagus Expected: 04/16/2023, Expires: 06/16/2023 [facility] Work Phone: Comment on above: Expected: 04/16/2023 , Expires: 06/16/2023 Start: 04-16-2023 End: 06-16-2023 Cobalamin (Vitamin B12) [Mass/volume] in Serum or Plasma VITAMIN B12 BLOOD Lab Routine Aperistalsis of esophagus Expected: 04/16/2023, Expires: 06/16/2023 [facility] Work Phone: Comment on above: Expected: 04/16/2023 , Expires: 06/16/2023 Start: 04-16-2023 End: 06-16-2023 Comprehensive metabolic 2000 panel - Serum or Plasma COMP METABOLIC PANEL Lab Routine Aperistalsis of esophagus Expected: 04/16/2023, Expires: 06/16/2023 [facility] Work Phone: Comment on above: Expected: 04/16/2023 , Expires: 06/16/2023 Start: 04-16-2023 End: 06-16-2023 Creatine kinase [Enzymatic activity/volume] in Serum or Plasma CK CREATINE KINASE Lab Routine Aperistalsis of esophagus Expected: 04/16/2023, Expires: 06/16/2023 [facility] Work Phone: Comment on above: Expected: 04/16/2023 , Expires: 06/16/2023 Start: 04-16-2023 End: 06-16-2023 Magnesium [Mass/volume] in Serum or Plasma MAGNESIUM BLD Lab Routine Aperistalsis of esophagus Expected: 04/16/2023, Expires: 06/16/2023 [facility] Work Phone: Comment on above: Expected: 04/16/2023 , Expires: 06/16/2023 Start: 10-22-2022 DEPRESSION ASSESSMENT DEPRESSION ASS ESSMENT [facility] Start: 06-22-2022 Influenza vaccination INFLUENZ A (Season Ended) [facility] Start: 11-08-2021 COVID-19 VACCINE (2 - Booster for Moderna series) COVID-19 VACCINE (2 - Booster for Moderna series) [facility] Start: 04-14-2021 COVID-19 VACCINE (2 - Moderna series) COVID-19 VACCINE (2 - Moderna series) [facility] Start: 2019 COLOGUARD (FIT-DNA) COLOGUARD (FIT-D NA) [facility] Start: 2019 Colonoscopy COLONOSCOPY [facility] Start: 2019 COLORECTAL CANCER SCREENING COLORECTAL CANCER SCREENING [facility] Start: [address] COLONOGRAPHY [facility] Start: 2019 DIABETES SCREEN DIABETES SCREEN [facility] Start: 2019 FECAL OCCULT BLOOD FECAL OCCULT BLOO D [facility] Start: 2019 SIGMOIDOSCOPY SIGMOIDOSCOPY [facility] Start: 2009 LIPID SCREEN LIPID SCREEN [facility] Start: 1993 Urine microalbumin profile DTAP,TDAP,TD (1 - Tdap) [facility] Start: 1992 HEPATITIS C SCREENING HEPATITIS C SC REENING [facility] Start: 1992 HIV SCREENING HIV SCREENING [facility] Start: 1986 Adult depression screening assessment DEPRESSION SCREENING [facility] Start: 1974 HEPATITIS B (1 of 3 - 3-dose series) HEPATITIS B (1 of 3 - 3-dose series) [facility] End: 04-16-2024 Screening colonoscopy COLONOSCOPY SCREENING Endoscopy Routine Colon cancer screening 1 Occurrences starting 04/16/2023 until 04/16/2024 [facility] Work Phone: Comment on above: 1 Occurrences starti ng 04/16/2023 until 04/16/2024 [facility] Immunizations Immunization Date Immunization Notes Care Provider Fa cilirubens 03-17-2021 COVID-19 vaccine, fu ll dose (MODERNA) Kurt Stark MD Work Phone: [facility] Payers Date Payer Category Payer Self-pay [id number] 2020 Unknown REFERENCE BASED PA[employer]ER [employer] [id number] 2020-Present Other [id number] 2020 Unknown [id number] 2017 Unknown [id number] 2017 Unknown MMO MMO [employer] [id number] 2017-Present [phone] [address] [place] [address] PPO [id number] 2015 Unknown [id number] Unknown [id number] Unknown [id number] Unknown [id number] Unknown [id number] Unknown [id number] Unknown [id number] Unknown [id number] Unknown [id number] Social History Date Type Detail Facility Start: 04-04-2018 End: 04-04-2018 Tobacco smoking status MEIS Unknown if ever smoked [facility] Start: 1975 Sex [facility]igned At Male [facility] Start: 04-12-2021 Tobacco smoking stat us MEIS Ex-smoker [facility] History of tobacco use Cigarette Smoker [facility] Start: 04-12-2021 Tobacco use and exposure Smokeless tobacco non-user [facility] Start: 04-12-2021 Alcohol intake Current drinke r of alcohol (finding) [facility] Start: 04-12-2021 History SDOH Alcohol Comment social [facility] Start: 04-12-2021 Tobacco Comment quit in 2000 [facility] History of tobacco use Current smoker [facility] Medical Equipment Procedure Code Equipment Code Equipment [...] Date & Type Note Facility 09-30-2024 Note [facility] Medical Records Department [address] [place] [address] History Physical Exam 09/30/24 0640 MR#: [id number] Acct: [id number] Name: ABBEY JORDAN Rep #: [id number] : 1975 49 From: [facility] PCP: Dr. Aleksandra De La Cruz MD Status:[employer] Location: [place] [address] HPI - General General Date of Admission: [...] never had a colonoscopy in the past. [facility] Medical History (Updated 09/25/24 @ 09:17 by [...] spouse current occupational status: employed current occupation: [employer] Smoking Status: Former smoker second hand exposure: [...] Pressure Location Left (more content not included)... [facility] 11-13-2023 Note [facility] Medical Records Department [address] [place] [address] History Physical Exam 11/13/23 1102 MR#: [id number] Acct: [id number] Name: ABBEY JORDAN Rep #: [id number] : 1975 48 From: Carmelo Garsia DO PCP: Dr. Aleksandra De La Cruz MD Status:[employer] Location: [place] [address] History and Physical [facility] [address] [place] [address] [address] [place] [address] OFFICE VISIT Date of Service: 08/13/23 MR#: [id number] Acct: [id number] Name: ABBEY JORDAN Rep #: [id number] : 1975 Provider: Dr. Carmelo Garsia DO Age/Sex: 48/M [place] [facility] Status: Signed Intake Vital Signs 08/13/2308:27 Height [...] History (Updated 08/13/23 @ 09:[address] aCrmelo Garsia DO) Abdominal pain Acid reflux Diarrhea [...] by me, Dr. Carmelo Garsia, DO 08/13/23 1710. ABBEY JORDAN is a 48 year old [...] have a new EMG on 07/25/23 at [facility]. Denies any hx of trama to the [...] that he knox (more content not included)... [facility] 04-20-2023 Miscellaneous Notes PA submission via [facility] esomeprazole (NEXIUM) 40 mg capsule 180 capsule 3 04/16/2023 Sig: Take 1 capsule by mouth twice daily before meals. Take 30 min before breakfast and dinner De Los Santos: [id number] - [place] - Rx #: [id number] documented in this encounter [facility] 04-16-2023 Note HNO ID: [id number] Author: Kurt Stark MD Service: ? Author Type: Physician Type: Progress Notes Filed: 04/16/2023 3:59 PM Note Text: VIRTUAL VISIT FOLLOW UP I have communicated my name and active licensure. The patient's identity and physical location were verified at the time of this visit. Either the patient or their legal vaccine customer representative has been informed of the risks [...] volume prep like Suprep Kurt Stark MD [facility] 04-16-2023 Instructions Kurt Stark MD - 04/16/2023 3:45 PM EDT Images from the original note were not included. Schedule colonoscopy. You can call [phone] to schedule 2. Labs at any [facility] lab 3. Continue esomeprazole and amitriptyline 4. Return to clinic in 1 year. You can call [phone] about 2 months prior to your expected [...] If you do not have a responsible hog driver (family member or friend) with you to take you home, your exam cannot be done with sedation and will be cancelled. Please bring a list of all of your current medications, including any [id number]-[id number] medications with you. Medications If you take [...] procedure. 2 09/2019 documented in this encounter [facility] 04-16-2023 History of Present illness Narrative VIRTUAL VISIT FOLLOW UP I have communicated my name and active licensure. The patient's identity and physical location were verified at the time of this visit. Either the patient or their legal vaccine customer representative has been informed of the risks [...] Kurt Stark MD documented in this encounter [facility] 02-14-2023 Miscellaneous Notes Patient's request for medication is as follows: Requested Prescriptions Pending Prescriptions Disp Refills esomeprazole (NEXIUM) 40 mg capsule 180 capsule 1 Please send this med to [facility]. Patient has a virtual appt with Dr Stark on 04/16. documented in this encounter [facility] 02-12-2023 Miscellaneous Notes Patient hasn't been seen in >1 year. Will prescribe 6 months worth, please inform the patient that he/she will need to obtain further scripts from a current provider such as his/her PCP or the patient can make a follow up appointment with me. Thank you documented in this encounter [facility] Evaluation note No assessment information availa [facility] Work Phone: Evaluation note Diagnosis Esophageal dysphagia- Primary Dysphagia, pharyngoesophageal phase Colon cancer screening Special screening for malignant neoplasms, colon Aperistalsis of esophagus Achalasia and cardiospasm documented [facility] this [facility]ative[facility] Outpatient Procedure (Routine) - Pending Review Specialty Diagnoses / Procedures Referred By Efraín villalta Referred To Contact [facility] Diagnoses Colon cancer screening Procedures COLONOSCOPY SCREENING COLONOSCOPY FLX DX W/COLLJ SPEC WHEN PFRMD Kurt Stark MD [address] [place] [address] [facility] [place] [address] [place] [address] Referral ID Status Reason Start Date Expiration Date Visits Requested Visits Authorized [id number] Pending Review Auto-Generat ed Referral 04/16/2023 04/16/2024 [address] [facility] Family History No Family History Records Found Relationship Condition Age at Onset Recorded Date/T tony father Hypertension Unknown High blood cholesterol Unknown Malignant neoplasm Unknown mother Malignant neoplasm Unknown Advance Directives No Advanced Directives Records Found Advance Directive Response Recorded Date/ Time Advance Directives No June 11:24am Living Will No March 14, 2018 9 :57am Power of Utility Maintenance Worker No March 14, 2018 9:57am Advance Directive Response Recorded Date/ Time Advance Directives No June 10:24am Living Will No March 14, 2018 8 :57am Power of Utility Maintenance Worker No March 14, 2018 8:57am Reason for Referral Specialty Diagnoses / Procedures Referred By Efraín villalta Referred To Contact Kurt Stark MD [address] [place] [id number] Referral ID Status Reason Start Date Expiration Date V isits Requested Visits Authorized [id number] Pending Review 1 1 Summary Purpose Additional [...] or prosecute any alcohol or drug abuse patient.[facility] the event this information is protected by the Federal Confidentiality of Alcohol and Drug Abuse Patient Records regulations: The Federal rules restrict any use of the information to criminally investigate or prosecute any alcohol or drug abuse patient.[facility] the event this information is protected by the Federal Confidentiality of Alcohol and Drug Abuse Patient Records regulations: The Federal rules restrict any use of the information to criminally investigate or prosecute any alcohol or drug abuse patient.[facility] the event this information is protected by the Federal Confidentiality of Alcohol and Drug Abuse Patient Records regulations: The Federal rules restrict any use of the information to criminally investigate or prosecute any alcohol or drug abuse patient.[facility] the event this information is protected by the Federal Confidentiality of Alcohol and Drug Abuse Patient Records regulations: The Federal rules restrict any use of the information to criminally investigate or prosecute any alcohol or drug abuse patient.[facility] Reason for Visit (unrecogniz ed section and content) Reason Onset Date Comments Refill Request 04/15/2022 Reason Onset Date Comments Refill Request 02/11/2023 Reason Onset Date Comments Refill Request 02/14/2023 Reason Comments GERD Reason Comments Insurance Authorization Esomeprazole 40 mg BID Care Teams (unrecognized sec tion and content) Popcorn Vendor Relationship Specialty Start Date End Date Aleksandra De La Cruz [address] [place] [address] PCP - General Family Practice 04/08/18 Team Status: Active Member Role Status Dates Dr. Aleksandra De La Cruz MD Family Provider Active Dr. Aleksandra De La Cruz MD Primary Care Provider Active Team Status: Inactive Member Role Status Dates Dr. Aleksandra De La Cruz MD Primary Care Provider Active Jessenia Kwong , [employer] MACHINE OPERATOR-C Attending Provider, Teresa landry Provider Active Popcorn Vendor Relationship Specialty Start Date End Date Aleksandra De La Cruz [address] [place] [address] PCP - General Family Medicine 04/08/18 Popcorn Vendor Relationship Specialty Start Date End Date Aleksandra De La Cruz [address] [place] [address] PCP - General Family Medicine 04/08/18 Popcorn Vendor Relationship Specialty Start Date End Date Aleksandra De La Cruz [address] [place] [address] PCP - General Family Medicine 04/08/18 Popcorn Vendor Relationship Specialty Start Date End Date Aleksandra De La Cruz [address] [place] [address] PCP - General Family Medicine 04/08/18 (unrecognized sect ion and content) No Status Records FoundNo Status Records Found INFORMATION SOURCE (unrecogn ized section and content) DATE CREATED AUTHOR 05/11/2023 [facility] DATE CREATED AUTHOR AUTHOR'S KATIA ALVAREZ 10/15/2024 [facility] FOR RECORDS PERTAINING TO PATIENTS WHO [...] BE BASED ON THE PRIMARY CLINICAL RECORDS. [facility] [employer] [facility]. provides no warranty or guarantee of the accuracy or completeness of information in this document.
== END | disposition home or self-care (01) ==
LOC: CVS 06:38
PROVIDERS: PCP Family Medicine; Referring Provider Family Medicine; Visit Provider Family Medicine
DX: R55 Syncope and collapse (principal)
CPT/HCPCS: 93306

== ENCOUNTER → 2025-10-06 | Outpatient (CLI) | payer OTHER, SELFPAY ==
--- OUTSIDE RECORDS SUMMARY | 2025-10-06 06:58 | XMS RPT_ITS | CCD ---
Author Organization [facility] Inform ion Partnership [facility] Care Team Providers Care Afterschool Babysitter Name Role Phone Aleksandra De La Cruz Primary Care Provider ALEKSANDRA DE LA CRUZ Primary Care Unavailable KURT STRAK Referring Unavailable FARIHA, ALEKSANDRA BARNES Primary Care Unavailable KURT STARK Attending Unavailable Carmelo Garsia Referring Unavailable Carmelo Garsia Attending Unavailable Carmelo Garsia Consulting Unavailable Corryiff, Aleksandra S Primary Care Unavailable Carmelo Garsia Referring Unavailable Carmelo Garsia Attending Unavailable Jolliff, Aleksandra S Primary Care Unavailable [place], Haley Referring Unavailable [place], Haley Attending Unavailable Jolliff, Aleksandra S Primary [...] source) Adhesive Tape Drug allergy (disorder) 09-30-2024 [facility] Repository (1 source) Iodine Drug Allergy 09-30-2024 [facility] Repository (1 source) Povidone-Iodine Drug Allergy 09-30-2024 [facility] Repository Medications Current Medications Medication Drug [...] on above: Take 3 tablets by mo [facility] daily at bedtime. AVOCADO OIL, BULK, [...] Start: 04-17-2022 take 1 capsule by mo [facility] twice daily before breakfast esomeprazole (NEXIUM) [...] Range Facility Colonoscopy Reporton 024 Colonoscopy Report [facility] Medical Records Department [address] [place] [address] Colonoscopy Report MR#: [id number] Acct: [id number] Name: ABBEY JORDAN Rep #: [id number] : 1975 49 From: Andrew Brewer DO PCP: Dr. Aleksandra De La Cruz MD Status:[facility] Patient Name: Abbey Jordan [...] for surveillance. Procedure Code(s): --- Professional --- 23762, Colonoscopy, flexible; with biopsy, single or multiple CPT copyright 2021 [employer]. All rights reserved. The codes documented in this report are preliminary and upon financial aid administrator review may be revised to meet current compliance requirements. Andrew Brewer DO 09/30/2024 7:46:18 AM This report has been signed electronically. Number of Addenda: 0 Note Initiated On: 09/30/2024 7:14 AM 09/30/24 0746 Date Andrew Brewer DO Cosigner Signature: Date (if indicated) CC: Dr. Aleksandra De La Cruz MD; Andrew Brewer, Date Dictated: 09/30/24713 Date Transcribed: Drug Safety Data Management Specialist: RF Signed [facility] MR/POSTOP.ANEon 09-30-2024 MR/POSTOP.ANE [facility] Medical Records Department [address] [place] [address] Anesthesia Postop Eval I 09/30/24822 MR#: [id number] Acct: [id number] Name: ABBEY JORDAN RA Rep #: [id number] : 1975 49 From: Lenny Suárez MD PCP: Dr. Aleksandra De La Cruz MD Status:[facility] Y Race: C Location: Anesthesia: Postop [...] Suárez MD Cosigner Signature: Date CC: Signed [facility] MR/TLSKGWCP7ic 09-30-2024 MR/POSTOPAN2 [facility] Medical Records Department [address] [place] [address] Anesthesia Postop Eval II 09/30/24823 MR#: [id number] Acct: [id number] Name: ABBEY JORDAN Rep #: [id number] : 1975 49 From: Lenny Suárez MD [...] MD Cosigner Signature: Date CC: Signed Normal [facility] Surgery Specimen Level Shavonne 09-30-2024 Surgery Specimen Level IV -------- Patient Age/Sex Location Account Attending Physician -------- ABBEY JORDAN 49/M EN [id number] Andrew Brewer DO -------- Specimen: [id number] Received: 09/30/24 Status: JOSE LUIS Zarco Num: [id number] Spec Type: COLON BX Subm Dr: Andrew [...] submitted in one cassette. AM. 09/30/2024 TC:5 CPT:88442 -------- Patient Age/Sex Location Account Attending Physician -------- ABBEY JORDAN 49/M EN [id number] Andrew Brewer DO -------- Signed (signature on file) Dr. Amari Alexander DO 10/01/24 1257 -------- Normal [facility] Comment on above: Performed By: #### P UMANG #### [facility] [place], [place], [id number] PSA,Total - Annual Screenon 05-06-2024 PSA,TOT SCREEN 0.18 ng/mL Normal 0.00-4.00 [facility] Comment on above: Result Comment: This test was performed using the TPSA assay method for the Dimension chemistry system. Values obtained with different assay methods cannot be used interchangably. When changing PSA assays in the course of monitoring a patient, additional sequential testing should be carried out to confirm baseline values. Performed By: #### L 501.9910 #### [facility] [address] [place], [address] Orthopedic Visit Reporton Orthopedic Visit Report [facility] [address] [place] [address] [address] [place] [address] OFFICE VISIT Date of Service: 11/26/23 MR#: [id number] Acct: [id number] Name: ABBEY JORDAN Rep #: [id number] : 1975 Provider: Dr. Carmelo motta, DO Age/Sex: 48/M Location: [facility] Status: Signed Intake Vital Signs 08/13/23 08:27 [...] mg PO DAILY 11/02/23 [History Confirmed 11/26/23] [facility] Medical History (Updated 11/19/23 @ 15:40 [...] Cosigner Signature: Date (if applicable) CC: Normal [facility] Orthopedic Visit Reporton Orthopedic Visit Report [facility] [address] [place] [address] OFFICE VISIT Date of Service: 11/19/23 MR#: [id number] Acct: [id number] Name: ABBEY JORDAN Rep #: [id number] : 1975 Provider: Dr. Carmelo motta DO Age/Sex: 48/M Location: [facility] Status: Signed Intake Vital Signs 11/13/23 10:15 11/19/23 12:41 Height 5 ft 11 in 5 ft 11 in Intake Visit Reasons: LEFT WRIST Chief Complaint: left hand Allergies adhesive tape Allergy (Severe, Verified 11/13/23 09:55) Rash iodine Allergy (Severe, Verified 11/13/23 09:55) Rash povidone-iodine [From Betadine] Allergy (Severe, Verified 11/13/23 09:55) Rash [facility] Medical History (Updated 11/19/23 @ 15:40 [...] point I will call him in a [employer] and see him back next week for suture removal Medications: New methylprednisolone (Medrol (Florencio)) take as directed 21 tabs 0RF 11/19/23 1541 Date Carmelo Garsia DO Cosigner Signature: Date (if applicable) CC: Normal [facility] Discharge Instructionon 10-23 Discharge Instruction [facility] Medical Records Department [address] [place] [address] Instructions for Home/Discharge Instructions 11/13/23 1142 MR#: [id number] Acct: [id number] Name: ABBEY JORDAN Rep #: [id number] : 1975 48 From: Carmelo Garsia DO PCP: Dr. Aleksandra De La Cruz MD Status:[facility] Discharge Instructions Diet Discharge [...] Aleksandra De La Cruz MD Signed Normal [facility] Operative Reporton 4 Operative Report [facility] Medical Records Department [address] [place] [address] Operative Report 11/13/23 1142 MR#: [id number] Acct: [id number] Name: ABBEY JORDAN Rep #: [id number] : 1975 48 From: Carmelo Garsia DO PCP: Dr. Aleksandra De La Cruz MD Status:[facility] Location: [place] [address] Operative Report Date of Procedure: 11/13/23 Preoperative [...] MD; Dr. Carmelo Garsia DO Signed Normal [facility] FRANKY BY IFA WITH REFLEXon Nuclear Ab IF (S) [Titer] Negative Normal Negative [facility] Comment on above: Order Comment: Speci men Type: BLOOD SPECIMEN Ordering Facility: [facility] Address: [address] [place] [address] Result Comment: Anti -nuclear antibody test is used as an aid in diagnosis of systemic autoimmune diseases. Where positive and clinically warranted, follow-up using disease-specific testing is recommended. Low positive titers are not uncommon with advanced age, certain chronic infections, and malignancies among others. Test methodology: Indirect fluorescence immunoassay (IFA) using HEp-2 cells. Performed By: #### A NAIFR #### [facility] CLIA [id number] [address] [place] [address] [place] CBC panel Auto (Bld)on 05-09 Erythrocyte distribution width (RBC) [Ratio] 13.2 % Normal 11.5-15.0 [facility] Comment on above: Order Comment: Carmen motta Type: BLOOD SPECIMEN Ordering Facility: [facility] Address: [address] [place] [address] Performed By: #### 5 8410-2 #### [facility] CLIA [id number] [address] [place] [address] [place] Hematocrit (Bld) [Volume fraction] 45.8 % Normal 39.0-51.0 [facility] Comment on above: Order Comment: Carmen motta Type: BLOOD SPECIMEN Ordering Facility: [facility] Address: [address] [place] [address] Performed By: #### 5 8410-2 #### [facility] CLIA [id number] [address] [place] [address] [place] Hemoglobin (Bld) [Mass/Vol] 15.4 g/dL Normal 13.0-17.0 [facility] Comment on above: Order Comment: Carmen motta Type: BLOOD SPECIMEN Ordering Facility: [facility] Address: [address] [place] [address] Performed By: #### 5 8410-2 #### [facility] CLIA [id number] [address] [place] [address] [place] MCH (RBC) [Entitic mass] 27.6 pg Normal 26.0-34.0 [facility] Comment on above: Order Comment: Speci men Type: BLOOD SPECIMEN Ordering Facility: [facility] Address: [address] [place], [place] [address] Performed By: #### 5 8410-2 #### [facility] CLIA [id number] [address] [place] [address] [place] MCHC (RBC) [Mass/Vol] 33.6 g/dL Normal 30.5-36.0 [facility] Comment on above: Order Comment: Speci men Type: BLOOD SPECIMEN Ordering Facility: [facility] Address: [address] [place], [place] [address] Performed By: #### 5 8410-2 #### [facility] CLIA [id number] [address] [place] MCV (RBC) [Entitic vol] 82.1 fL Normal 80.0-100.0 [facility] Comment on above: Order Comment: Speci men Type: BLOOD SPECIMEN Ordering Facility: [facility] Address: [address] [place], [place] [address] Performed By: #### 5 8410-2 #### [facility] CLIA [id number] [address] [place] [address] [place] Nucleated RBC (Bld) [#/Vol] 10*3/uL Normal <0.01 [facility] Comment on above: Order Comment: Speci men Type: BLOOD SPECIMEN Ordering Facility: [facility] Address: [address] [place], [place] [address] Performed By: #### 5 8410-2 #### [facility] CLIA [id number] [address] [place] [address] [place] Platelet mean volume (Bld) [Entitic vol] 9.8 fL Normal 9.0-12.7 [facility] Comment on above: Order Comment: Speci men Type: BLOOD SPECIMEN Ordering Facility: [facility] Address: [address] [place], [place] [address] Performed By: #### 5 8410-2 #### [facility] CLIA [id number] [address] [place] [address] [place] Platelets (Bld) [#/Vol] 205 10*3/uL Normal 150-400 [facility] Comment on above: Order Comment: Speci men Type: BLOOD SPECIMEN Ordering Facility: [facility] Address: [address] [place], [place] [address] Performed By: #### 5 8410-2 #### [facility] CLIA [id number] [address] [place] [address] [place] RBC (Bld) [#/Vol] 5.58 10*6/uL Normal 4.20-6.00 [facility] Comment on above: Order Comment: Speci men Type: BLOOD SPECIMEN Ordering Facility: [facility] Address: [address] [place], [place] [address] Performed By: #### 5 8410-2 #### [facility] CLIA [id number] [address] [place] [address] [place] WBC (Bld) [#/Vol] 6.16 10*3/uL Normal 3.70-11.00 [facility] Comment on above: Order Comment: Speci men Type: BLOOD SPECIMEN Ordering Facility: [facility] Address: [address] [place], [place] [address] Performed By: #### 5 8410-2 #### [facility] CLIA [id number] [address] [place] [address] [place] CK SerPl-cCncon 05-09-2023 CK [Catalytic activity/Vol] 133 U/L Normal 51-298 [facility] Comment on above: Order Comment: Speci men Type: BLOOD SPECIMEN Ordering Facility: [facility] Address: [address] [place], [place] [address] Performed By: #### 2 157-6, 31284-1, 96193-7, 2132-06 #### [facility] CLIA [id number] [address] [place] [address] [place] Comprehensive metabolic 2000 panelon 05-09-2023 Albumin [Mass/Vol] 4.3 g/dL Normal 3.9-4.9 [facility] Comment on above: Order Comment: Speci men Type: BLOOD SPECIMEN Ordering Facility: [facility] Address: [address] Performed By: #### 2 157-6, 01062-9, 11035-0, 2132-06 #### [facility] CLIA [id number] [address] [place] [address] [place] ALP [Catalytic activity/Vol] 74 U/L Normal 38-113 [facility] Comment on above: Order Comment: Speci men Type: BLOOD SPECIMEN Ordering Facility: [facility] Address: [address] [place] [address] Performed By: #### 2 157-6, 32876-6, 59531-0, 2132-06 #### [facility] CLIA [id number] [address] [place] [address] [place] ALT [Catalytic activity/Vol] 31 U/L Normal 10-54 [facility] Comment on above: Order Comment: Speci men Type: BLOOD SPECIMEN Ordering Facility: [facility] Address: [address] Performed By: #### 2 157-6, 84492-7, 23391-8, 2132-06 #### [facility] CLIA [id number] [address] [place] [address] [place] Anion gap [Moles/Vol] 11 mmol/L Normal 9-18 [facility] Comment on above: Order Comment: Speci men Type: BLOOD SPECIMEN Ordering Facility: [facility] Address: [address] [place] [address] Performed By: #### 2 157-6, 00305-1, 50238-3, 2132-06 #### [facility] CLIA [id number] [address] [place] [address] [place] AST [Catalytic activity/Vol] 29 U/L Normal 14-40 [facility] Comment on above: Order Comment: Speci men Type: BLOOD SPECIMEN Ordering Facility: [facility] Address: [address] [place] [address] Performed By: #### 2 157-6, 77656-1, 66926-4, 2132-06 #### [facility] CLIA [id number] [address] [place] [address] [place] Bilirubin [Mass/Vol] 0.4 mg/dL Normal 0.2-1.3 [facility] Comment on above: Order Comment: Speci men Type: BLOOD SPECIMEN Ordering Facility: [facility] Address: [address] [place] [address] Performed By: #### 2 157-6, 95592-1, 23161-0, 2132-06 #### [facility] CLIA [id number] [address] [place] [address] [place] Calcium [Mass/Vol] 9.3 mg/dL Normal 8.5-10.2 [facility] Comment on above: Order Comment: Speci men Type: BLOOD SPECIMEN Ordering Facility: [facility] Address: [address] [place], [place] [address] Performed By: #### 2 157-6, 01338-0, 06288-7, 2132-06 #### [facility] CLIA [id number] [address] [place] [address] [place] Chloride [Moles/Vol] 102 mmol/L Normal 97-105 [facility] Comment on above: Order Comment: Speci men Type: BLOOD SPECIMEN Ordering Facility: [facility] Address: [address] [place], [place] [address] Performed By: #### 2 157-6, 39091-7, , 2132-06 #### [facility] CLIA [id number] [address] [place] [address] [place] CO2 [Moles/Vol] 25 mmol/L Normal 22-30 [facility] Comment on above: Order Comment: Speci men Type: BLOOD SPECIMEN Ordering Facility: [facility] Address: [address] [place] [address] Performed By: #### 2 157-6, 85428-2, , 2132-06 #### [facility] CLIA [id number] [address] [place] [address] [place] Creatinine [Mass/Vol] 0.84 mg/dL Normal 0.73-1.22 [facility] Comment on above: Order Comment: Speci men Type: BLOOD SPECIMEN Ordering Facility: [facility] Address: [address] [place] [address] Performed By: #### 2 157-6, 30327-8, , 2132-06 #### [facility] CLIA [id number] [address] [place] [address] [place] ESTIMATED GLOMERULAR FILTRATION RATE 107 mL/min/1.73m??? Normal >=60 [facility] Comment on above: Order Comment: Speci men Type: BLOOD SPECIMEN Ordering Facility: [facility] Address: [address] [place] [address] Result Comment: Anjelica mated Glomerular Filtration Rate [...] actual GFR. Performed By: #### 2 157-6, 57267-2, , 2132-06 #### [facility] CLIA [id number] [address] [place] [id number] [place] Glucose [Mass/Vol] 145 mg/dL High 74-99 [facility] Comment on above: Order Comment: Carmen motta Type: BLOOD SPECIMEN Ordering Facility: [facility] Address: [address] [place], [place] [address] Result Comment: The [employer] (ADA) provides guidance for cutoff [...] Standards of Medical Care in Diabetes 2016, [employer]. Diabetes Care. 2016.39(Suppl 1). Performed By: #### 2 157-6, 89554-4, , 2132-06 #### [facility] CLIA [id number] [address] [place] [address] [place] Potassium [Moles/Vol] 4.1 mmol/L Normal 3.7-5.1 [facility] Comment on above: Order Comment: Carmen motta Type: BLOOD SPECIMEN Ordering Facility: [facility] Address: [address] [place] [address] Performed By: #### 2 157-6, 33460-6, , 2132-06 #### [facility] CLIA [id number] [address] [place] [address] [place] Protein [Mass/Vol] 6.3 g/dL Normal 6.3-8.0 [facility] Comment on above: Order Comment: Carmen motta Type: BLOOD SPECIMEN Ordering Facility: [facility] Address: [address] [place], [place] [address] Performed By: #### 2 157-6, 95356-9, 54420-6, 2132-06 #### [facility] CLIA [id number] [address] [place] [address] [place] Sodium [Moles/Vol] 138 mmol/L Normal 136-144 [facility] Comment on above: Order Comment: Speci men Type: BLOOD SPECIMEN Ordering Facility: [facility] Address: [address] [place] [address] Performed By: #### 2 157-6, 25712-7, 90542-2, 2132-06 #### [facility] CLIA [id number] [address] [place] [address] [place] Urea nitrogen [Mass/Vol] 13 mg/dL Normal 9-24 [facility] Comment on above: Order Comment: Speci men Type: BLOOD SPECIMEN Ordering Facility: [facility] Address: [address] Performed By: #### 2 157-6, 77833-8, 44981-2, 2132-06 #### [facility] CLIA [id number] [address] [place] [address] [place] Magnesium SerPl-mCncon 05-09 Magnesium [Mass/Vol] 2.0 mg/dL Normal 1.7-2.3 [facility] Comment on above: Order Comment: Speci men Type: BLOOD SPECIMEN Ordering Facility: [facility] Address: [address] Performed By: #### 2 157-6, 26853-7, 36207-7, 2132-06 #### [facility] CLIA [id number] [address] [place] [address] [place] Vit B12 SerPl-mCncon 023 Cobalamin (Vitamin B12) [Mass/Vol] 722 pg/mL Normal 232-1245 [facility] Comment on above: Order Comment: Speci men Type: BLOOD SPECIMEN Ordering Facility: [facility] Address: [address] [place] [address] Performed By: #### 2 157-6, 56403-8, 06345-4, 2132-9 #### [facility] CLIA [id number] [address] [facility] [id number] [place] [address] [facility] CNPCynthia 04-20-2023 CNPN Telephone (GASTMN) ABBEY JORDAN ([id number]) 1975 M Date Time Provider Department 04/20/23 KURT STARK GASTOK During your visit today, we recorded the following information about you: Elmer Nix LPN 04/20/2023 2:45 PM Signed PA submission via [facility] esomeprazole (NEXIUM) 40 mg capsule 180 capsule 3 04/16/2023 Sig: Take 1 capsule by mouth twice daily before meals. Take 30 min before breakfast and dinner De Los Santos: [id number] - JONATHAN - Rx #: [id number] Elmer Nix LPN 04/25/2023 11:58 AM Signed CaseId:[id number]; Status:Approved; Review Type:Prior Auth; Coverage Start Date:03/21/2023; Coverage End Date:04/19/2024; Allergies As of Date: 04/20/2023 (No Known Allergies) Date Reviewed: 04/12/2021 Reviewed by: Celia Mckeon RN - Fully Assessed Reason for Visit: Insurance Authorization [[id number]] Cmt: Esomeprazole 40 mg BID Prescriptions as [...] Date: 04/20/2023 (None) Encounter Status:Closed by ELMER OSLIS on 04/20/[address] [facility] No Panel InformationOrdered By: ROSENDO Kwong on 01-18-2023 Prostate Specific Antigen Screen 0.19 ng/mL 0.00-4.00 [facility] Comment on above: This test was perfor med using the TPSA assay method for the[facility] chemistry system. Values obtained with differentassay methods cannot be used interchangably.When changing PSA assays in the course of monitoring apatient, additional sequential testing should be carriedout to confirm baseline values. Basophil percentageon 2021 Bilirubin [Mass/Vol] 0.50 mg/dL 0.20-1.00 [facility] Work Phone: Comment on above: For patients on eltr ombopag therapy, use of Dimension Calvin TBIL is not recommended. Chloride [Moles/Vol] 106 mmol/L 98-107 [facility] Work Phone: Cholesterol [Mass/Vol] 211 mg/dL <200 [facility] Work Phone: Comment on above: <200 mg/dL Desirable 200-240 mg/dL Borderline >240 mg/dL High Risk Glucose [Mass/Vol] 104 mg/dL 74-106 [facility] Work Phone: Comment on above: Fasting Glucose resu lt from 100 to 125 mg/dL suggests IMPAIRED HOMEOSTASIS per A.D.A. criteria. Potassium [Moles/Vol] 3.8 mmol/L 3.5-5.1 [facility] Work Phone: Protein [Mass/Vol] 6.9 g/dL 6.4-8.2 [facility] Work Phone: Sodium [Moles/Vol] 140 mmol/L 136-145 [facility] Work Phone: Triglyceride [Mass/Vol] 238 mg/dL <199 [facility] Work Phone: Comment on above: The drugs N-Acetylcy steine and Metamizole may falsely depress this assay.Serum Triglycerides Reference Interval Normal <150 mg/dL Borderline high 150 - 199 mg/dL High 200 - 499 mg/dL Very High > or = 500 mg/dL Laboratory - Chemistry and C hemistry - challengeon 09-13-2022 ALP [Catalytic activity/Vol] 74 U/L 45-117 [facility] Work Phone: [phone] ALT [Catalytic activity/Vol] 49 U/L 16-61 [facility] Work Phone: CO2 [Moles/Vol] 26.0 mmol/L 21.0-32.0 [facility] Work Phone: Globulin (S) [Mass/Vol] 3.0 g/dL 2.2-4.2 [facility] Work Phone: Urea nitrogen/Creatinine [Mass ratio] 17.3 mg/mg 10-20 [facility] Work Phone: No Panel Informationon 09-13 Estimated GFR (MDRD) Amer 130 mL/min >60 [facility] Work Phone: Comment on above: GFR Calc Estimated GFR (MDRD) Non-Af Amer 108 mL/min >60 [facility] Work Phone: Comment on above: Non- GFR Calc Serum or plasma albumin komal urement (mass/volume)on 09-13-2022 Albumin [Mass/Vol] 3.9 g/dL 3.2-5.0 [facility] Work Phone: Serum or plasma albumin/glob ulin mass ratioon 09-13-2022 Albumin/Globulin [Mass ratio] 1.3 {ratio} 0.9-2.4 [facility] Work Phone: Serum or plasma calcium komal urement (mass/volume)on 09-13-2022 Calcium [Mass/Vol] 8.8 mg/dL 8.5-10.1 [facility] Work Phone: Serum or plasma cholesterol in HDL measurement (mass/volume)on 09-13-2022 Cholesterol in HDL [Mass/Vol] 31 mg/dL >40 [facility] Work Phone: Comment on above: The drugs N-Acetylcy steine and Metamizole may falsely depress this assay. Reference Range HDL <40 mg/dL Low HDL Cholesterol HDL >or= 60 mg/dL High HDL Cholesterol Serum or plasma cholesterol in VLDL measurement (mass/volume)on 09-13-2022 Cholesterol in VLDL [Mass/Vol] 48 mg/dL 5-40 [facility] Work Phone: Serum or plasma creatinine m easurement (mass/volume)on 09-13-2022 Creatinine [Mass/Vol] 0.81 mg/dL 0.70-1.30 [facility] Work Phone: Comment on above: The validity of the calculated GFR & GFRAA in patients over 70 years has not been determined. Clinical correlation is essential. Serum or plasma low density lipoprotein (LDL) cholesterol measurement (mass/volume)on 09-13-2022 Cholesterol in LDL [Mass/Vol] 132 mg/dL 0-130 [facility] Work Phone: Serum or plasma urea nitroge n measurement (mass/volume)on 09-13-2022 Urea nitrogen [Mass/Vol] 14 mg/dL 7-18 [facility] Work Phone: Thin prep Papanicolaou smear with manual screeningon 09-13-2022 Thin prep Papanicolaou smear with manual screening 27 U/L 15-37 [facility] Work Phone: Thin prep Papanicolaou smear with manual screening 8 5-15 [facility] Work Phone: No Panel Informationon 01-16 Prostate Specific Antigen Screen 0.10 ng/mL 0.00-4.00 [facility] Work Phone: Comment on above: This test was perfor med using the TPSA assay method for [employer] chemistry system. Values obtained with differentassay methods cannot be used interchangably.When changing PSA assays in the course of monitoring apatient, additional sequential testing should be carriedout to confirm baseline values. Encounters Encounter Date Encounter Type Care Provider Facility Start: 09-30-2024 End: 09-30-2024 ambulatory Andrew Brewer Facility:[facility] Start: 08-13-2024 ambulatory Yanira Roche Facility:[facility] Start: 05-06-2024 End: 05-06-2024 ambulatory Haley Langstoning Facility:[facility] Start: 11-26-2023 End: 11-26-2023 ambulatory Aleksandra S Jolliff Facility:[facility] Start: 11-19-2023 End: 11-19-2023 ambulatory Aleksandra S Jolliff Facility:[facility] Start: 11-13-2023 ambulatory [facility] Facility [facility] Start: 11-13-2023 End: 11-13-[facility] Start: 05-09-2023 End: 05-10-2023 ambulatory ALEKSANDRA CAMERON JOLLIFF Facility:[facility] Start: 04-20-2023 Telephone encounter Kurt fisher MD Work Phone: Gastroenterology Comment on above: Insurance Authorizat ion (Esomeprazole 40 mg BID) Start: 04-16-2023 End: 04-16-2023 ambulatory ALEKSANDRA CAMERON JOLLIFF Facility:[facility] Start: 04-16-2023 End: 04-16-2023 ambulatory Kurt Stark MD Work Phone: Gastroenterology Comment on above: Esophageal dysphagia (Primary Dx); Colon cancer screening; Aperistalsis of esophagus Start: 04-16-2023 End: 04-16-2023 Telemedicine consultation with patient Kurt Stark MD Work Phone: [facility] Start: 02-14-2023 Refill Kurt carranza MD Work Phone: Gastroenterology Comment on above: Refill Request Start: 02-11-2023 Refill Evonne Infante MD Work Phone: Gastroenterology Comment on above: Refill Request Start: 01-18-2023 End: 01-18-2023 ambulatory [facility] Work Phone: Start: 01-18-2023 End: 01-18-2023 Patient encounter procedure [facility] Start: 09-13-2022 End: 09-13-2022 ambulatory [facility] Work Phone: Start: 09-13-2022 End: 09-13-2022 Patient encounter procedure [facility] Start: 04-15-2022 Refill Kurt carranza MD Work Phone: Gastroenterology Comment on above: Refill Request Start: 01-16-2022 End: 01-16-2022 Patient encounter procedure [facility] Procedures Date Procedure Procedure Detail Performing Clinician 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 tunnel release Plan of Treatment Date Care Activity Detail Author Start: 06-22-2023 Influenza vaccination INFLUENZ A (Season Ended) [facility] Start: 04-16-2023 End: 06-16-2023 FRANKY BY IFA WITH REFLEX FRANKY BY IFA WITH REFLEX Lab Routine Aperistalsis of esophagus Expected: 04/16/2023, Expires: 06/16/2023 [facility] Work Phone: Comment on above: Expected: 04/16/2023 , Expires: 06/16/2023 Start: 04-16-2023 End: 06-16-2023 CBC panel - Blood by Automated count CBC Lab Routine Aperistalsis of esophagus Expected: 04/16/2023, Expires: 06/16/2023 [facility] Work Phone: Comment on above: Expected: 04/16/2023 , Expires: 06/16/2023 Start: 04-16-2023 End: 06-16-2023 Cobalamin (Vitamin B12) [Mass/volume] in Serum or Plasma VITAMIN B12 BLOOD Lab Routine Aperistalsis of esophagus Expected: 04/16/2023, Expires: 06/16/2023 [facility] Work Phone: Comment on above: Expected: 04/16/2023 , Expires: 06/16/2023 Start: 04-16-2023 End: 06-16-2023 Comprehensive metabolic 2000 panel - Serum or Plasma COMP METABOLIC PANEL Lab Routine Aperistalsis of esophagus Expected: 04/16/2023, Expires: 06/16/2023 [facility] Work Phone: Comment on above: Expected: 04/16/2023 , Expires: 06/16/2023 Start: 04-16-2023 End: 06-16-2023 Creatine kinase [Enzymatic activity/volume] in Serum or Plasma CK CREATINE KINASE Lab Routine Aperistalsis of esophagus Expected: 04/16/2023, Expires: 06/16/2023 [facility] Work Phone: Comment on above: Expected: 04/16/2023 , Expires: 06/16/2023 Start: 04-16-2023 End: 06-16-2023 Magnesium [Mass/volume] in Serum or Plasma MAGNESIUM BLD Lab Routine Aperistalsis of esophagus Expected: 04/16/2023, Expires: 06/16/2023 [facility] Work Phone: Comment on above: Expected: 04/16/2023 , Expires: 06/16/2023 Start: 10-22-2022 DEPRESSION ASSESSMENT DEPRESSION ASS ESSMENT [facility] Start: 06-22-2022 Influenza vaccination INFLUENZ A (Season Ended) [facility] Start: 11-08-2021 COVID-19 VACCINE (2 - Booster for Moderna series) COVID-19 VACCINE (2 - Booster for Moderna series) [facility] Start: 04-14-2021 COVID-19 VACCINE (2 - Moderna series) COVID-19 VACCINE (2 - Moderna series) [facility] Start: 2019 COLOGUARD (FIT-DNA) COLOGUARD (FIT-D NA) [facility] Start: 2019 Colonoscopy COLONOSCOPY [facility] Start: 2019 COLORECTAL CANCER SCREENING COLORECTAL CANCER SCREENING [facility] Start: [address] COLONOGRAPHY [facility] Start: 2019 DIABETES SCREEN DIABETES SCREEN [facility] Start: 2019 FECAL OCCULT BLOOD FECAL OCCULT BLOO D [facility] Start: 2019 SIGMOIDOSCOPY SIGMOIDOSCOPY [facility] Start: 2009 LIPID SCREEN LIPID SCREEN [facility] Start: 1993 Urine microalbumin profile DTAP,TDAP,TD (1 - Tdap) [facility] Start: 1992 HEPATITIS C SCREENING HEPATITIS C SC REENING [facility] Start: 1992 HIV SCREENING HIV SCREENING [facility] Start: 1986 Adult depression screening assessment DEPRESSION SCREENING [facility] Start: 1974 HEPATITIS B (1 of 3 - 3-dose series) HEPATITIS B (1 of 3 - 3-dose series) [facility] End: 04-16-2024 Screening colonoscopy COLONOSCOPY SCREENING Endoscopy Routine Colon cancer screening 1 Occurrences starting 04/16/2023 until 04/16/2024 [facility] Work Phone: Comment on above: 1 Occurrences starti ng 04/16/2023 until 04/16/2024 [facility] Immunizations Immunization Date Immunization Notes Care Provider Fa cilirubens 03-17-2021 COVID-19 vaccine, fu ll dose (MODERNA) Kurt Stark MD Work Phone: [facility] Payers Date Payer Category Payer Self-pay [id number] 2020 Unknown [employer] [id number] 2020-Present Other [id number] 2020 Unknown [id number] 2017 Unknown [id number] 2017 Unknown MMO MMO [employer] [id number] 2017-Present [phone] [address] [place] [address] PPO [id number] 2015 Unknown [id number] Unknown [id number] Unknown [id number] Unknown [id number] Unknown [id number] Unknown [id number] Unknown [id number] Unknown [id number] Unknown [id number] Social History Date Type Detail Facility Start: 04-04-2018 End: 04-04-2018 Tobacco smoking status NCIS Unknown if ever smoked [facility] Start: 1975 Sex Assigned At Male [facility] Start: 04-12-2021 Tobacco smoking stat us NCIS Ex-smoker [facility] History of tobacco use Cigarette Smoker [facility] Start: 04-12-2021 Tobacco use and exposure Smokeless tobacco non-user [facility] Start: 04-12-2021 Alcohol intake Current drinke r of alcohol (finding) [facility] Start: 04-12-2021 History SDOH Alcohol Comment social [facility] Start: 04-12-2021 Tobacco Comment quit in 2000 [facility] History of tobacco use Current smoker [facility] Medical Equipment Procedure Code Equipment [...] Date & Type Note Facility 09-30-2024 Note [facility] Medical Records Department [address] [place] [address] History Physical Exam 09/30/24 0640 MR#: [id number] Acct: [id number] Name: ABBEY JORDAN Rep #: [id number] : 1975 49 From: [facility] PCP: Dr. Aleksandra De La Cruz MD Status:[facility] Location: [place] [address] HPI - General General Date of Admission: [...] never had a colonoscopy in the past. [facility] Medical History (Updated 09/25/24 @ 09:17 [...] spouse current occupational status: employed current occupation: [employer] Smoking Status: Former smoker second hand exposure: [...] Pressure Location Left (more content not included)... [facility] 11-13-2023 Note [facility] Medical Records Department [address] [place] [address] History Physical Exam 11/13/23 1102 MR#: [id number] Acct: [id number] Name: ABBEY JORDAN Rep #: [id number] : 1975 48 From: Carmelo Garsia DO PCP: Dr. Aleksandra De La Cruz MD Status:[facility] Location: [place] [address] History and Physical [facility] [address] [place] [address] [address] [place] [address] OFFICE VISIT Date of Service: 08/13/23 MR#: [id number] Acct: [id number] Name: ABBEY JORDAN Rep #: [id number] : 1975 Provider: Dr. Carmelo Garsia DO Age/Sex: 48/M Location: [facility] Status: Signed Intake Vital Signs 08/13/2308:27 Height [...] by me, Dr. Carmelo Garsia, DO 08/13/23 1020. ABBEY JORDAN is a 48 year old [...] have a new EMG on 07/25/23 at [facility]. Denies any hx of trama to the [...] that he knox (more content not included)... [facility] 04-20-2023 Miscellaneous Notes PA submission via [facility] esomeprazole (NEXIUM) 40 mg capsule 180 capsule 3 04/16/2023 Sig: Take 1 capsule by mouth twice daily before meals. Take 30 min before breakfast and dinner De Los Santos: [id number] - [place] - Rx #: [id number] documented in this encounter [facility] 04-16-2023 Note HNO ID: [id number] Author: Kurt Stark MD Service: ? Author Type: Physician Type: Progress Notes Filed: 04/16/2023 3:59 PM Note Text: VIRTUAL VISIT FOLLOW UP I have communicated my name and active licensure. The patient's identity and physical location were verified at the time of this visit. Either the patient or their legal tax compliance representative has been informed of the risks [...] volume prep like Suprep Kurt Stark MD [facility] 04-16-2023 Instructions Kurt Stark MD - 04/16/2023 3:45 PM EDT Images from the original note were not included. Schedule colonoscopy. You can call [phone] to schedule 2. Labs at any [facility] lab 3. Continue esomeprazole and amitriptyline 4. Return to clinic in 1 year. You can call [phone] about 2 months prior to your expected [...] If you do not have a responsible concrete mixer truck driver (family member or friend) with you to take you home, your exam cannot be done with sedation and will be cancelled. Please bring a list of all of your current medications, including any Guqr-odf-Imoolwa medications with you. Medications If you take [...] procedure. 2 09/2019 documented in this encounter [facility] 04-16-2023 History of Present illness Narrative VIRTUAL VISIT FOLLOW UP I have communicated my name and active licensure. The patient's identity and physical location were verified at the time of this visit. Either the patient or their legal tax compliance representative has been informed of the risks [...] Kurt Stark MD documented in this encounter [facility] 02-14-2023 Miscellaneous Notes Patient's request for medication is as follows: Requested Prescriptions Pending Prescriptions Disp Refills esomeprazole (NEXIUM) 40 mg capsule 180 capsule 1 [facility] send [facility] med [facility]. Patient has a virtual appt with Dr Stark on 04/16. documented in this encounter [facility] 02-12-2023 Miscellaneous Notes Patient hasn't been seen in >1 year. Will prescribe 6 months worth, please inform the patient that he/she will need to obtain further scripts from a current provider such as his/her PCP or the patient can make a follow up appointment with me. Thank you documented in this encounter [facility] Evaluation note No assessment information availa [facility] Work Phone: Evaluation note Diagnosis Esophageal dysphagia- Primary Dysphagia, pharyngoesophageal phase Colon cancer screening Special screening for malignant neoplasms, colon Aperistalsis of esophagus Achalasia and cardiospasm [facility] Outpatient Procedure (Routine) - Pending Review Specialty Diagnoses / Procedures Referred By Efraín villalta Referred To Contact [facility] Diagnoses Colon cancer screening Procedures COLONOSCOPY SCREENING COLONOSCOPY FLX DX W/COLLJ SPEC WHEN PFRMD Kurt Stark MD [address] [place] [address] [facility] [address] [place] [address] Referral ID Status Reason Start Date Expiration Date Visits Requested Visits Authorized [id number] Pending Review Auto-Generat ed Referral 04/16/2023 04/16/2024 1 1 [facility] Family History No Family History Records Found Relationship Condition Age at Onset Recorded Date/T tony father Hypertension Unknown High blood cholesterol Unknown Malignant neoplasm Unknown mother Malignant neoplasm Unknown Advance Directives No Advanced Directives Records Found Advance Directive Response Recorded Date/ Time Advance Directives No June 11:24am Living Will No March 14, 2018 9 :57am Power of Iron Carrier No March 14, 2018 9:57am Advance Directive Response Recorded Date/ Time Advance Directives No June 10:24am Living Will No March 14, 2018 8 :57am Power of Iron Carrier No March 14, 2018 8:57am Reason for Referral Specialty Diagnoses / Procedures Referred By Efraín villalta Referred To Contact Kurt Stark MD [address] [place] [id number] Referral ID Status Reason Start Date Expiration Date V isits Requested Visits Authorized [id number] Pending Review 1 1 Summary Purpose Additional [...] or prosecute any alcohol or drug abuse patient.[facility] the event this information is protected by the Federal Confidentiality of Alcohol and Drug Abuse Patient Records regulations: The Federal rules restrict any use of the information to criminally investigate or prosecute any alcohol or drug abuse patient.[facility] the event this information is protected by the Federal Confidentiality of Alcohol and Drug Abuse Patient Records regulations: The Federal rules restrict any use of the information to criminally investigate or prosecute any alcohol or drug abuse patient.[facility] the event this information is protected by the Federal Confidentiality of Alcohol and Drug Abuse Patient Records regulations: The Federal rules restrict any use of the information to criminally investigate or prosecute any alcohol or drug abuse patient.[facility] the event this information is protected by the Federal Confidentiality of Alcohol and Drug Abuse Patient Records regulations: The Federal rules restrict any use of the information to criminally investigate or prosecute any alcohol or drug abuse patient.[facility] Reason for Visit (unrecogniz ed section and content) Reason Onset Date Comments Refill Request 04/15/2022 Reason Onset Date Comments Refill Request 02/11/2023 Reason Onset Date Comments Refill Request 02/14/2023 Reason Comments GERD Reason Comments Insurance Authorization Esomeprazole 40 mg BID Care Teams (unrecognized sec tion and content) Afterschool Babysitter Relationship Specialty Start Date End Date Aleksandra De La Cruz [address] [place] [address] PCP - General Family Practice 04/08/18 Team Status: Active Member Role Status Dates Dr. Aleksandra De La Cruz MD Family Provider Active Dr. Aleksandra De La Cruz MD Primary Care Provider Active Team Status: Inactive Member Role Status Dates Dr. Aleksandra De La Cruz MD Primary Care Provider Active Jessenia Kwong , SHIP ENGINES OPERATING ENGINEER-C Attending Provider, Teresa landry Provider Active Afterschool Babysitter Relationship Specialty Start Date End Date Aleksandra De La Cruz [address] [place] [address] PCP - General Family Medicine 04/08/18 Afterschool Babysitter Relationship Specialty Start Date End Date Aleksandra De La Cruz [address] [place] [address] PCP - General Family Medicine 04/08/18 Afterschool Babysitter Relationship Specialty Start Date End Date Aleksandra De La Cruz [address] [place] [address] PCP - General Family Medicine 04/08/18 Afterschool Babysitter Relationship Specialty Start Date End Date Aleksandra De La Cruz [address] [place] [address] PCP - General Family Medicine 04/08/18 (unrecognized sect ion and content) No Status Records FoundNo Status Records Found INFORMATION SOURCE (unrecogn ized section and content) DATE CREATED AUTHOR 05/11/2023 [facility] DATE CREATED AUTHOR AUTHOR'S KATIA ALVAREZ 10/15/2024 [facility] FOR RECORDS PERTAINING TO PATIENTS WHO ARE [...] BE BASED ON THE PRIMARY CLINICAL RECORDS. [facility]. provides no warranty or guarantee of the accuracy or completeness of information in this document.
[2025-10-06 08:37] LABS: Cholesterol 208 mg/dL (<=200); Low Density Lipoprotein Calc. 133 mg/dL; Triglycerides 217 mg/dL; Very Low Density Lipoprotein 43 mg/dL (5-40); cholesterol:hdl ratio screen 5.73
[2025-10-06 08:43] LABS: AST(SGOT) 26 U/L (<=37); Alanine Aminotransfer ALT/SGPT 29 U/L (<=46); Albumin, Serum 4.2 g/dL (3.5-5.0); Alkaline Phosphatase 69 U/L (40-129); Anion Gap 11 (5-15); BUN 15 mg/dL (4-19); BUN/Creat Ratio 16.5 RATIO (10-20); Bilirubin, Direct 0.17 mg/dL (0.00-0.30); Calcium,Total 9.2 mg/dL (7.6-11.0); Carbon Dioxide 28.1 mmol/L (21.0-32.0); Chloride 101 mmol/L (98-108); Globulin 2.9 g/dL (2.2-4.2); Glucose 112 mg/dL (70-99); Potassium 3.8 mmol/L (3.3-5.1)
== END | disposition home or self-care (01) ==
LOC: LAB 06:52
PROVIDERS: PCP Family Medicine; Referring Provider Internal Medicine Cardiovascular Disease; Visit Provider Internal Medicine Cardiovascular Disease
DX: I10 Essential (primary) hypertension (principal); R00.0 Tachycardia, unspecified
CPT/HCPCS: 36415; 80048; 80061; 80076